=== PATIENT | male | born 1965 | race Caucasian/White ===

== ENCOUNTER → 2018-04-12 15:57 | Outpatient (CLI) | payer OTHER, SELFPAY ==
--- NOTE | 2018-04-12 16:07 | MRI_ITS ---
STUDY: MRI BRAIN WITH AND WITHOUT CONTRAST REASON FOR EXAM: Male, 53 years old. Visual field defect in left eye TECHNIQUE: Standardized multiplanar fat and water weighted pulse sequences were obtained. 10 ml of Gadavist contrast material was administered intravenously for the contrast portion of the examination. COMPARISON: None. FINDINGS: Normal size of the ventricles and extra-axial spaces for the patient's age. Normal white matter tracts of the supratentorial brain. Normal bilateral basal ganglia. Normal thalami. There is no extra-axial fluid accumulation. Normal flow voids within the major intracranial circulation suggesting patency by spin echo criteria. Normal venous enhancement. There is no enhancing intra-axial or extra-axial abnormality. Partial empty sella deformity of uncertain significance. Normal, infundibular stalk, optic chiasm and hypothalamus. Normal tectal plate and pineal gland. Normal midbrain, alda and medulla. Normal cerebellum. Normal basal cisterns. Normal bilateral temporal bones. Normal bilateral internal auditory canals. No demonstrated orbital abnormality, within the constraints of a routine brain study. Mild mucosal thickening of the maxillary sinuses bilaterally.. Normal calvarium and skull base. Normal visualized soft tissue structures. Normal visualized upper cervical spine. MRI/Brain W/WO Contrast IMPRESSION: Partial empty sella deformity of uncertain significance otherwise normal unenhanced and enhanced MRI of the brain. Mild bilateral maxillary sinus disease. Electronically Signed: Michael Rodriguez MD at 18:36 EDT , Service support ,
== END ==
PROVIDERS: Family Provider Internal Medicine; PCP Internal Medicine; Visit Provider Ophthalmology
DX: H53.412 Scotoma involving central area, left eye (principal)
CPT/HCPCS: 70553; A9585

== ENCOUNTER → 2024-04-23 | Outpatient (CLI) | payer OTHER, SELFPAY ==
[2024-04-23 15:22] LABS: CRP < 2.90 mg/L (0.0-3.0)
[2024-04-25 14:10] LABS: Endomysial Antibody IgA Negative (Negative); Immunoglobulin A 298 mg/dL (61-437); t-Transglutaminase IgA <2 U/mL (0-3)
== END | disposition home or self-care (01) ==
PROVIDERS: PCP Internal Medicine; Referring Provider Internal Medicine Gastroenterology; Visit Provider Internal Medicine Gastroenterology
DX: R10.9 Unspecified abdominal pain (principal); R19.7 Diarrhea, unspecified
CPT/HCPCS: 36415; 82784; 83516; 86140; 86255

== ENCOUNTER → 2025-08-20 | Outpatient (CLI) | payer OTHER, SELFPAY ==
--- OUTSIDE RECORDS SUMMARY | 2025-08-20 11:05 | XMS RPT_ITS | CCD ---
Author Organization [facility] Care Team Providers Care Novelty Worker Name Role Phone Raffaele AGUILAR, Archie Martinez Primary Care Provider [phone] Archie Castorena Primary Care Unavailable Ritchie Stevenson Referring Unavailable Ritchie Stevenson Attending Unavailable Raffaele AGUILAR, Archie Martinez Primary Care Provider [phone] Katarzyna 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.JONO [place] M Unavailable QUEENIE JACOBO Attending Unavailable KAYODE MORSE Referring Unavailable RAFFAELE, ARCHIE Martinez Primary Care Unavailable KAYODE MORSE Attending Unavailable QUEENIE JACOBO Referring Unavailable RAFFAELE, ARCHIE Martinez Primary Care Unavailable QUEENIE JACOBO Attending Unavailable ARCHIE CASTORENA Referring Unavailable RAFFAELE, ARCHIE Martinez Primary Care Unavailable ARCHIE CASTORENA Attending Unavailable RAFFAELE, ARCHIE Martinez Primary Care Unavailable RAFFAELE, ARCHIE Martinez Referring Unavailable RAFFAELE, ARCHIE Martinez Primary Care Unavailable RAFFAELE, ARCHIE Martinez Referring Unavailable RAFAFELE, ARCHIE Martinez Primary Care Unavailable RAFFAELE, ARCHIE Martinez Referring Unavailable RAFFAELE, ARCHIE Martinez Primary Care Unavailable ARCHIE CASTORENA Attending Unavailable ARCHIE CASTORENA Primary Care Unavailable RYAN ROSA Referring Unavailable RAFFAELE, ARCHIE Martinez Primary Care Unavailable TESTRYAN CHAKRABORTY Attending Unavailable RAFFAELE, ARCHIE Martinez Referring Unavailable RAFFAELE, ARCHIE Martinez Primary Care Unavailable ARCHIE CASTORENA Attending Unavailable RAFFAELE, ARCHIE Martinez Primary Care Unavailable RAFFAELE, ARCHIE Martinez Attending Unavailable RAFFAELE, ARCHIE Martinez Primary Care Unavailable RAFFAELE, ARCHIE Martinez Referring Unavailable RAFFAELE, ARCHIE Martinez Primary Care Unavailable Medications Current Medications Medication Drug Class(es) Dates Sig (Normalized) Sig (Original) atorvastatin 10 mg oral tablet (20 sources) HMG-CoA Reductase Inhibitor Start: 11-07-2023 End: 12-15-2024 take 1 tablet by mouth once daily at bedtime for hyperlipidemia atorvastatin (LIPITOR) 10 mg tablet Indications: Other hyperlipidemia Take 1 tablet by mouth daily at bedtime. For cholesterol. 90 tablet 3 12/15/2024 Active Start: 10-04-2022 take 1 tablet by derek th once daily at bedtime for hyperlipidemia atorvastatin (LIPITOR) 10 mg tablet Take 1 tablet by mouth daily at bedtime. For cholesterol. 90 tablet 3 10/04/2022 Active Start: 06-23-2021 End: 10-02-2022 take 1 tablet by mouth once daily at bedtime for hyperlipidemia atorvastatin (LIPITOR) 10 mg tablet Take 1 tablet by mouth daily at bedtime. For cholesterol. 90 tablet 3 06/23/2021 10/02/2022 Discontinued Comment on above: Take 1 tablet by derek th daily at bedtime. For cholesterol. bimatoprost 0.3 mg/ml ophthalmic solution (13 sources) Prostaglandin Analog Start: 4 take 1 drop(s) into the eye(s) once daily at bedtime bimatoprost (LUMIGAN) 0.03 % ophthalmic drops Use 1 Drop in both eyes daily at bedtime. 05/16/2024 Active dorzolamide 20 mg/ml ophthalmic solution (20 sources) Carbonic Anhydrase Inhibitor Start: 0 take 1 drop(s) into the eye(s) twice daily dorzolamide (TRUSOPT) 2 % ophthalmic solution Use 1 Drop in both eyes twice daily. 06/14/2020 Active Start: 06-14-2020 take 1 drop(s) into the eye(s) twice daily dorzolamide (TRUSOPT) 2 % ophthalmic solution Use 1 Drop in both eyes twice daily. 0 06/14/2020 Active Comment on above: Use 1 Drop in both e yes twice daily. enteric contrast (will be provided with radiology test) (1 source) Start: 12-16-19 End: 12-17-19 enteric contrast (will be provided with radiology test) Indications: Right lower quadrant abdominal pain For CT ABD/PEL W IVCON Routine order Administer, As Directed One Time Only, via Oral, Rectal, both Oral and Rectal, Enteric Tube, Stoma or Indwelling Catheter, Enteric Contrast as designated per enteric contrast guidelines 1 Each 12/15/2024 12/16/2024 Active iv contrast (will be provided with radiology test) (1 source) Start: 12-16-19 End: 12-17-19 iv contrast (will be provided with radiology test) Indications: Right lower quadrant abdominal pain CT ABD/PEL -Inject, intravenously, once for 1 dose.No IV access, insert saline lock prior to the beginning of sedation, infusion, injection of imaging exam. Discontinue saline lock post exam. If Pt. has a central line or IVAD, may access for administration according to line specific nursing protocol. Once exam is complete flush line and de-access according to line specific nursing protocol in the CT contrast administration guidelines link. 1 Each 12/15/2024 12/16/2024 Active latanoprost 0.05 mg/ml ophthalmic solution (17 sources) Prostaglandin Analog Start: 02-14-20 17 take 1 drop(s) into the eye(s) once daily at bedtime latanoprost (XALATAN) 0.005 % ophthalmic solution Use 1 Drop in both eyes daily at bedtime. TO AFFECTED EYE(S) 0 02/13/2017 Active Start: 02-13-2017 take 1 drop(s) into the eye(s) once daily at bedtime latanoprost (XALATAN) 0.005 % ophthalmic solution Use 1 Drop in both eyes daily at bedtime. TO AFFECTED EYE(S) 0 02/13/2017 Active Comment on above: Use 1 Drop in both e yes daily at bedtime. TO AFFECTED EYE(S) omeprazole 20 mg delayed release oral capsule (1 source) Proton Pump Inhibitor Start: 02-20-20 25 take 1 capsule by mouth once daily omeprazole (PRILOSEC) 20 mg capsule Take 1 capsule by mouth once daily. 90 capsule 1 02/19/2025 Active sertraline 100 mg oral tablet (20 sources) Serotonin Reuptake Inhibitor Start: 07-20-20 ZOLOFT 100 MG TAB Take one(1) tablet daily. 0 07/20/2005 Active Comment on above: Take one(1) tablet d aily. terbinafine 250 mg oral tablet (11 sources) Allylamine Antifungal Start: 11-08-19 25 take 1 tablet by mouth once daily terbinafine HCl (LAMISIL) 250 mg tablet Indications: Dermatophytosis of nail Take 1 tablet by mouth once daily. 30 tablet 2 11/08/2024 Active Completed/Discontinued Medications Medication Drug Class(es) Dates Sig (Normalized) Sig (Original) Benzocaine (1 source) Standardized Chemical Allergen Start: 02-12-2025 End: 02-12-2025 1 spray, TOPICAL, DIRECTED, Starting on Alannah 02/12/25 at 1030, Until Alannah 02/12/25 at 1429, Dosing as directed for intraprocedural use only - Pharmaceutical Waste: Aerosol -, Intraprocedure calcium chloride 0.0014 meq/ml / potassium chloride 0.004 meq/ml / sodium chloride 0.103 meq/ml / sodium lactate 0.028 meq/ml injectable solution (1 source) Start: 02-12-2025 End: 02-12-2025 take 30 mL intravenously every hour 30 mL/hr, INTRAVENOUS, CONTINUOUS, Starting on Alannah 02/12/25 at 1000, Until [place] 02/12/25 at 1046, Preprocedure diphenhydrAMINE (1 source) Histamine-1 Receptor Antagonist Start: 02-12-2025 End: 02-12-2025 12.5-50 mg, INTRAVENOUS, DIRECTED, Starting on [place]annah 02/12/25 at 1030, Until [place] 02/12/25 at 1429, DOSING DIRECTED BY PHYSICIAN FOR PROCEDURAL SEDATION ONLY, Intraprocedure 1 ml fentaNYL 0.05 mg/ml injection (1 source) Opioid Agonist Start: 02-12-2025 End: 02-12-2025 25-100 mcg, INTRAVENOUS, DIRECTED, Starting on [place] 02/12/25 at 1030, Until [place] 02/12/25 at 1429, DOSING DIRECTED BY PHYSICIAN FOR PROCEDURAL SEDATION ONLY, Intraprocedure 5 ml midazolam 1 mg/ml injection (1 source) Benzodiazepine Start: 02-12-2025 End: 02-12-2025 1-5 mg, INTRAVENOUS, DIRECTED, Starting on [place] 02/12/25 at 1030, Until [place] 02/12/25 at 1429, DOSING DIRECTED BY PHYSICIAN FOR PROCEDURAL SEDATION ONLY, Intraprocedure Problems Active Problems Problem Classification Problem Date Documented Da te Episodic/Chronic Anxiety disorders (20 sources) Panic disorder with agoraphobia; Translations: [Agoraphobia with panic disorder] Onset: 07-21-2005 07-21-2005 Chronic Disorders of lipid metabolism (20 sources) Hyperlipidemia; Translations: [Other hyperlipidemia] Onset: 07-21-2005 Chronic Esophageal disorders (1 source) Esophageal disorders; Translations: [Gastroesophageal reflux disease with esophagitis without hemorrhage] Onset: 02-19-2025 Essential hypertension (1 source) Essential hypertension; Translations: [Essential (primary) hypertension] 08-07-2024 Chronic Genitourinary symptoms and ill-defined conditions (4 sources) Blood in urine; Translations: [Hematuria, unspecified] Episodic Glaucoma (20 sources) Bilateral angle-closure glaucoma; Translations: [Chronic angle-closure glaucoma, bilateral, stage unspecified] Onset: 02-13-2017 02-13-2017 Chronic Hyperplasia of prostate (16 sources) Benign prostatic hyperplasia; Translations: [Benign prostatic hyperplasia without lower urinary tract symptoms] Onset: 02-26-2024 02-26-2024 Chronic Other and unspecified benign neoplasm (1 source) Adenomatous polyp of colon ; Translations: [Benign neoplasm of colon, unspecified] 11-15-2023 Episodic Other gastrointestinal disorders (15 sources) Irritable bowel syndrome with diarrhea; Translations: [Irritable bowel syndrome with diarrhea] Onset: 02-26-2024 08-07-2024 Chronic Other gastrointestinal disorders (1 source) Irritable bowel syndrome with diarrhea; Translations: [Irritable bowel syndrome with diarrhea] Onset: 08-07-2024 Chronic Other gastrointestinal disorders (1 source) Diarrhea; Translations: [Diarrhea, unspecified] 02-26-2024 Episodic Other gastrointestinal disorders (10 sources) Heartburn; Translations: [Heartburn] Onset: 02-12-2025 02-03-2025 Episodic Other nervous system disorders (20 sources) Neuropathy; Translations: [Polyneuropathy, unspecified] Onset: 06-23-2020 06-23-2020 Chronic Screening and history of mental health and substance abuse codes (2 sources) Patient encounter status; Translations: [Encounter for screening for depression] Onset: 08-04-2025 08-07-2024 Episodic Past or Other Problems Problem Classification Problem Date Documented Da te Episodic/Chronic Abdominal hernia (15 sources) Right inguinal hernia ; Translations: [Unilateral inguinal hernia, without obstruction or gangrene, not specified as recurrent] Onset: 2 Resolved: 7 02-13-2017 Episodic Abdominal pain (18 sources) Right flank pain; Translations: [Unspecified abdominal pain] Onset: 4 Episodic Diabetes mellitus without complication (20 sources) Impaired fasting glycemia; Translations: [Impaired fasting glucose] Onset: 4 Episodic Esophageal disorders (20 sources) Gastroesophageal reflux disease; Translations: [Gastro-esophageal reflux disease without esophagitis] Onset: 5 Resolved: 2 08-10-2006 Chronic Mycoses (4 sources) Onychomycosis due to dermatophyte ; Translations: [Tinea unguium] Onset: 5 08-07-2024 Episodic Nausea and vomiting (10 sources) Nausea; Translations: [Nausea] Onset: 5 02-03-2025 Episodic Other and unspecified benign neoplasm (20 sources) Polyp of colon; Translations: [Polyp of colon] Onset: 4 Resolved: 4 11-10-2014 Episodic Other gastrointestinal disorders (2 sources) Heartburn; Translations: [Heartburn] Onset: 5 Episodic Other screening for suspected conditions (not mental disorders or infectious disease) (20 sources) Raised prostate specific antigen; Translations: [Elevated prostate specific antigen [PSA]] Onset: 9 Episodic Varicose veins of lower extremity (20 sources) Varicose veins of lower extremity; Translations: [Varicose veins of bilateral lower extremities with pain] Onset: 0 06-23-2020 Episodic Results Test Name Value Interpretation Reference Range Facility [facility] 08-04-2025 CNOV Office Visit (INTMWS ) EKTA MYRICK ([id number]) 1965 M Date Time Provider Department 08/04/25 9:20 AM ARCHIE CASTORENA INTMWS During your visit today, we recorded the following information about you: Pulse Blood pressure Weight Height 60/minute 132/80 97.7 kg 1.848 m Archie Castorena MD 08/04/2025 11:12 AM Signed Subjective Ekta Myrick is a 60 year old male. Patient presents with: Physical F/U 6 months He was doing well. GI symptoms essentially resolved and were controlled. Lipids were controlled. His medication list was updated. He reported an incident at work when he became acutely weak, sweaty and lightheaded. He had no chest pains, palpitations, or dyspnea. He continued working and symptoms resolved shortly. He had varicose veins and swelling of the left leg controlled with compression stockings. He had been noting mild burning and pain of the left plantar feet after prolonged standing, and non specific numbness of the left lower leg and foot. Review of Systems Constitutional: Negative for appetite change, fatigue and fever. HENT: Negative for congestion and sore throat. Eyes: Negative for visual disturbance. Respiratory: Negative for cough and shortness of breath. Cardiovascular: Positive for leg swelling (left leg). Negative for chest pain and palpitations. Gastrointestinal: Negative for abdominal pain, constipation, diarrhea, nausea and vomiting. Genitourinary: Negative for difficulty urinating and dysuria. Musculoskeletal: Negative for arthralgias and back pain. Neurological: Positive for numbness (left foot). Negative for headaches. PAST MEDICAL HISTORY Diagnosis Date Agoraphobia with panic disorder 07/21/2005 Dr. Kc Anxiety disorder in conditions classified elsewhere Cholelithiasis 11/03/2023 Chronic angle-closure glaucoma of both eyes 02/13/2017 Colon polyp 12/04/2013 Esophageal reflux GERD (gastroesophageal reflux disease) 02/08/2011 Glaucoma Heart burn 02/12/2025 Hyperlipidemia 07/21/2005 Impaired fasting glucose 11/05/2013 Irritable bowel syndrome with diarrhea 02/26/2024 Neuropathy - (NOS) 06/23/2020 Varicose veins of left lower extremity with pain 06/23/2020 PAST SURGICAL HISTORY Procedure Laterality Date APPENDECTOMY 1979 CATARACT EXTRACTION W/ INTRAOCULAR LENS IMPLANT HX Bilateral 11/2018 w/ glaucoma procedure. COLONOSCOPY FLX DX W/COLLJ SPEC WHEN PFRMD 12/04/2013 Colonoscopy COLONOSCOPY SCREENING 11/15/2023 EGD 02/12/2025 EXPLORATORY LAPAROTOMY CELIOTOMY W/WO BIOPSY SPX 1979 Laparotomy, exp ;Adhesions FAMILY HISTORY Problem Relation Age of Onset Breast Cancer Mother Alzheimer's Disease Mother Hypertension Mother Hypertension Father Diabetes Father Blood Disease Father recurrent DVT on chronic warfarin Arthritis Brother knee replaced No Known Problems Sister Colon Cancer Maternal Grandfather No Known Problems Brother ALLERGIES No Known Allergies Current Outpatient Medications Medication Sig atorvastatin (LIPITOR) 10 mg tablet Take 1 tablet by mouth daily at bedtime. For cholesterol. bimatoprost (LUMIGAN) 0.03 % ophthalmic drops Use 1 Drop in both eyes daily at bedtime. dorzolamide (TRUSOPT) 2 % ophthalmic solution Use 1 Drop in both eyes twice daily. omeprazole (PRILOSEC) 20 mg capsule Take 1 capsule by mouth once daily. sertraline (ZOLOFT) 100 mg tablet Take 2 tablets by mouth once daily. No current facility-administered medications for this visit. Objective BP 132/80 (BP Site: Left Arm, BP Position: Sitting, BP Cuff Size: Large Adult) Pulse 60 Ht 184.8 cm (6' 0.75) Wt 97.7 kg (215 lb 6.2 oz) BMI 28.61 kg/m? Physical Exam Constitutional: General: He is not in acute distress. Appearance: He is not ill-appearing. HENT: Head: Normocephalic. Nose: No congestion or rhinorrhea. Mouth/Throat: Mouth: Mucous membranes are moist. Pharynx: Oropharynx is clear. Eyes: Extraocular Movements: Extraocular movements intact. Conjunctiva/sclera: Conjunctivae normal. Cardiovascular: Rate and Rhythm: Normal rate and regular rhythm. Heart sounds: No murmur heard. No gallop. Pulmonary: Breath sounds: Normal breath sounds. Abdominal: Palpations: Abdomen is soft. Tenderness: There is no abdominal tenderness. Musculoskeletal: General: No swelling. Cervical back: Neck supple. Right lower leg: No edema. Left lower leg: No edema. Lymphadenopathy: Cervical: No cervical adenopathy. Skin: Comments: Varicose veins medium size, left lower leg. No tenderness. No cords. Neurological: General: No focal deficit present. Mental Status: He is alert. Sensory: Sensory deficit (subjective decrease of PP and FT left foot and distal leg.) present. Motor: No weakness. Gait: Gait normal. Psychiatric: Mood and Affect: Mood normal. Latest Ref Rng 08/01/2025 Protein, (more content not included)... Normal [facility] [id number] 08-04-2025 ECG01 Ventricular Rate : 4 7 BPM Atrial Rate : 47 BPM P-R Interval : 170 ms QRS Duration : 100 ms Q-T Interval : 468 ms QTC Calculation(Bazett) : 414 ms Calculated P [place] : 29 degrees Calculated R [place] : 15 degrees Calculated T [place] : 26 degrees SINUS BRADYCARDIA NONSPECIFIC ST AND T WAVE ABNORMALITY BORDERLINE ECG Confirmed by ANJEL MASTERS MD ([id number]) on 08/05/2025 10:53:24 AM NAME : EKTA MYRICK PID : [id number] : 1965 Gender : Male Race : ORD : Procedure Date : Aug 04 2025 10:46:44 Edit Date : Aug 05 2025 10:53:44 Diagnosis: SINUS BRADYCARDIA NONSPECIFIC ST AND T WAVE ABNORMALITY BORDERLINE ECG Confirmed by ANJEL MASTERS MD ([id number]) on 08/05/2025 10:53:24 AM Test Reason : Location : 185 : [facility] Overread By : ANJEL MASTERS MD Edited By : ANJEL MASTERS MD Referred By : Archie Castorena Acquired by : Adrianne Barragan [facility] Comprehensive metabolic 2000 panelon 08-01-2025 Albumin [Mass/Vol] 4.4 g/dL Normal 3.9-4.9 [facility] Comment on above: Order Comment: Speci men Type: BLOOD SPECIMENOrdering Facility: [facility] Address: [address] [place] [address] Performed By: #### 2 4323-8, PAIGE 22627-4 ####[facility] [id number] [place] [address] [place] ALP [Catalytic activity/Vol] 54 U/L Normal 38-113 [facility] Comment on above: Order Comment: Speci men Type: BLOOD SPECIMENOrdering Facility: [facility] Address: [address] [place] [address] Performed By: #### 2 4323-8, PAIGE, 29003-3 ####[facility] [id number] [place] [address] [place] ALT [Catalytic activity/Vol] 17 U/L Normal 10-54 [facility] Comment on above: Order Comment: Speci men Type: BLOOD SPECIMENOrdering Facility: [facility] Address: [address] [place] [address] Performed By: #### 2 4323-8, EXEPSAlfred, 44023-4 ####[facility] [id number] [place] [address] [place] Anion gap [Moles/Vol] 10 mmol/L Normal 8-15 [facility] Comment on above: Order Comment: Speci men Type: BLOOD SPECIMENOrdering Facility: [facility] Address: [address] [place] [address] Performed By: #### 2 4323-8, EXEPSAlfred, 72329-5 ####[facility] [id number] [place] [address] [place] AST [Catalytic activity/Vol] 21 U/L Normal 14-40 [facility] Comment on above: Order Comment: Speci men Type: BLOOD SPECIMENOrdering Facility: [facility] Address: [address] [place] [address] Performed By: #### 2 4323-8, EXEPSAlfred, 09850-8 ####[facility] [id number] [place] [address] [place] Bilirubin [Mass/Vol] 1.6 mg/dL High 0.2-1.3 [facility] Comment on above: Order Comment: Speci men Type: BLOOD SPECIMENOrdering Facility: [facility] Address: [address] [place] [address] Performed By: #### 2 4323-8, EXEPSA, 40454-8 ####[facility] [id number] [place] [address] [place] Calcium [Mass/Vol] 9.1 mg/dL Normal 8.5-10.2 [facility] Comment on above: Order Comment: Speci men Type: BLOOD SPECIMENOrdering Facility: [facility] Address: [address] [place] [address] Performed By: #### 2 4323-8, EXEPSA, 40206-1 ####[facility] [id number] [place] [address] [place] Chloride [Moles/Vol] 104 mmol/L Normal 98-107 [facility] Comment on above: Order Comment: Speci men Type: BLOOD SPECIMENOrdering Facility: [facility] Address: [address] [place] [address] Performed By: #### 2 4323-8, EXEPSAlfred, 35764-1 ####[facility] [id number] [place] [address] [place] CO2 [Moles/Vol] 25 mmol/L Normal 22-30 [facility] Comment on above: Order Comment: Speci men Type: BLOOD SPECIMENOrdering Facility: [facility] Address: [address] [place] [address] Performed By: #### 2 4323-8, PAIGE, 11287-0 ####[facility] [id number] [place] [address] [place] Creatinine [Mass/Vol] 0.95 mg/dL Normal 0.73-1.22 [facility] Comment on above: Order Comment: Speci men Type: BLOOD SPECIMENOrdering Facility: [facility] Address: [address] [place] [address] Performed By: #### 2 4323-8, PAIGE, 82852-1 ####[facility] [id number] [place] [address] [place] eGFRcr SerPlBld CKD-EPI 2020 90 mL/min/1.73m??? Normal >=60 [facility] Comment on above: Order Comment: Speci men Type: BLOOD SPECIMENOrdering Facility: [facility] Address: [address] [place] [address] Result Comment: Caprice mated Glomerular Filtration Rate (eGFR) is calculated using the 2020 CKD-EPI creatinine equation. This equation utilizes serum creatinine, sex, and age as parameters. The creatinine assay has traceable calibration to isotope dilution-mass spectrometry. Refer to KDIGO guidelines for clinical interpretation. In patients with unstable renal function, e.g. those with acute kidney injury, the eGFR may not accurately reflect actual GFR. Performed By: #### 2 4323-8, PAIGE, 22982-3 ####[facility] [id number] [place] [address] [place] Glucose [Mass/Vol] 113 mg/dL High 74-99 [facility] Comment on above: Order Comment: Speci men Type: BLOOD SPECIMENOrdering Facility: [facility] Address: [address] [place] [address] Result Comment: The [place] [employer] (ADA) provides guidance for cutoff values for fasting glucose and random glucose. The ADA defines fasting as no caloric intake for at least 8 hours. Fasting plasma glucose results between 100 to 125 mg/dL indicate increased risk for diabetes (prediabetes). Fasting plasma glucose results greater than or equal to 126 mg/dL meet the criteria for diagnosis of diabetes. In the absence of unequivocal hyperglycemia, results should be confirmed by repeat testing. In a patient with classic symptoms of hyperglycemia or hyperglycemic crisis, random plasma glucose results greater than or equal to 200 mg/dL meet the criteria for diagnosis of diabetes. Reference: Standards of Medical Care in Diabetes 2016, [place] [employer]. Diabetes Care. 2016.39(Suppl 1). Performed By: #### 2 4323-8, PAIGE 81974-1 ####[facility] [id number] [place] [id number] [place] Potassium [Moles/Vol] 4.4 mmol/L Normal 3.7-5.1 [facility] Comment on above: Order Comment: Reba men Type: BLOOD SPECIMENOrdering Facility: [facility] Address: [address] [place] [address] Performed By: #### 2 4323-8, PAIGE, 91842-0 ####[facility] [id number] [place] [address] [place] Protein [Mass/Vol] 7.1 g/dL Normal 6.3-8.0 [facility] Comment on above: Order Comment: Speci men Type: BLOOD SPECIMENOrdering Facility: [facility] Address: [address] [place] [address] Performed By: #### 2 4323-8, PAIGE, 70437-3 ####[facility] [id number] [place] [address] [place] Sodium [Moles/Vol] 139 mmol/L Normal 136-144 [facility] Comment on above: Order Comment: Speci men Type: BLOOD SPECIMENOrdering Facility: [facility] Address: [address] [place] [address] Performed By: #### 2 4323-8, PAIGE, 45244-6 ####[facility] [id number] [place] [address] [place] Urea nitrogen [Mass/Vol] 18 mg/dL Normal 9-24 [facility] Comment on above: Order Comment: Speci men Type: BLOOD SPECIMENOrdering Facility: [facility] Address: [address] [place] [address] Performed By: #### 2 4323-8, PAIGE, 30943-7 ####[facility] LABCLIA [id number] [place] [address] [place] EXECUTIVE PANEL PSA, FREE AN D TOTALon 08-01-2025 Free PSA/Total PSA [Mass fraction] 21 % Normal [facility] Comment on above: Order Comment: Speci men Type: BLOOD SPECIMENOrdering Facility: [facility] Address: [address] [place] [address] Result Comment: Tota l and free PSA test methodology used is the Electrochemiluminescence Immunoassay by [employer]. Total or free PSA values by differing methodologies cannot be interchanged. The below table lists the probability of finding prostate cancer upon needle biopsy, for men 50 years or older and total PSA concentrations from 4.0-10.0 ng/mL. Results should be interpreted within the broader clinical context. Free PSA(%) 50-59 years 60-69 years >69 years <11 49.2% 57.5% 64.5% 11-18 26.9% 33.9% 40.8% 19-25 18.3% 23.9% 29.7% >25 9.1% 12.2% 15.8% Performed By: #### 2 4323-8, PAIGE 03337-9 ####[facility] LABIA [id number] [place] [id number] [place] Prostate specific Ag [Mass/Vol] 4.62 ng/mL High <2.60 [facility] Comment on above: Order Comment: Speci men Type: BLOOD SPECIMENOrdering Facility: [facility] Address: [address] [place] [address] Result Comment: Tota l PSA test methodology used is the Electrochemiluminescence Immunoassay by [facility]. Total PSA values by differing methodologies cannot be interchanged. For an individual patient, the significance of a PSA level should be interpreted in a broad clinical context, including age, race, family history, digital rectal exam, prostate size, results of prior testing (prostate biopsy, free PSA, PCA3), and use of 5-alpha reductase inhibitors. Considering the high incidence of asymptomatic cancer in the general population that may not pose an ultimate risk to a patient, the decision to recommend urological evaluation or prostate biopsy should be individualized after consideration of all these factors. REFERENCE: Sis Bojorquez M.D., M.P.H., El Cohn M.D., Ph.D., Jose Fuentes M.D., Ping Levine, M.P.H., Yani Russ, Alexander. Effect of Verification Bias on Screening for Prostate Cancer by Measurement of Prostatic Specific Antigen. N Engl J Med 2003,349:335-42. Performed By: #### 2 4323-8, PAIGE, 62317-4 ####[facility] LABCLIA [id number] [place] [id number] [place] HbA1c (Bld)on 08-01-2025 Average glucose Estimated from glycated hemoglobin (Bld) [Mass/Vol] 114 mg/dL Normal [facility] Comment on above: Order Comment: Speci men Type: BLOOD SPECIMENOrdering Facility: [facility] Address: [address] [place] [address] Result Comment: eAG: (Estimated average glucose) is a calculated value from HgbA1c and is airport representative of the average blood glucose level in the last 2-3 month period. Performed By: #### 5 5454-3 ####[facility] LABCLIA [id number] [place] [address] [place] HbA1c (Bld) [Mass fraction] 5.6 % Normal 4.3-5.6 [facility] Comment on above: Order Comment: Hiraltameka [facility] Type: BLOOD SPECIMENOrdering Facility: [facility] Address: [address] [place] [address] Result Comment: Amer ican Diabetes Association guidelines indicate that patients with HgbA1c in the range 5.7-6.4% are at increased risk for development of diabetes, and intervention by lifestyle modification may be beneficial. HgbA1c greater or equal to 6.5% is considered diagnostic of diabetes. Performed By: #### 5 5454-3 ####[facility] LABCLIA [id number] [place] [address] [place] Lipid 1996 panelon 5 Cholesterol [Mass/Vol] 165 mg/dL Normal <200 [facility] Comment on above: Order Comment: Hiraltameka dean Type: BLOOD SPECIMENOrdering Facility: [facility] Address: [address] [place] [address] Result Comment: <200 mg/dL, Desirable 200-239 mg/dL, Borderline high >239 mg/dL, High Performed By: #### 2 4323-8, EXEPSA, 78906-0 ####[facility] LABCLIA [id number] [place] [address] [place] Cholesterol in HDL [Mass/Vol] 55 mg/dL Normal >39 [facility] Comment on above: Order Comment: Reba dean Type: BLOOD SPECIMENOrdering Facility: [facility] Address: [address] [place] [address] Result Comment: 40-5 9 mg/dL, Acceptable >59 mg/dL, High: Negative risk factor for coronary heart disease <40 mg/dL, Low: Positive risk factor for coronary heart disease Performed By: #### 2 4323-8, PAIGE ####[facility] LABCLIA [id number] [address] [place] Cholesterol in LDL [Mass/Vol] 89 mg/dL Normal <100 [facility] Comment on above: Order Comment: Speci men Type: BLOOD SPECIMENOrdering Facility: [facility] Address: [address] [place] [address] Result Comment: <100 mg/dL, Optimal 100-129 mg/dL, Near optimal/above optimal 130-159 mg/dL, Borderline high 160-189 mg/dL, High >189 mg/dL, Very high Secondary prevention optimal LDL Cholesterol levels are recommended to be <70 mg/dL LDL cholesterol is calculated using the Pisano-NIH equation. Performed By: #### 2 4323-8, PAIGE ####[facility] LABCLIA [id number] [address] STATES [facility] Cholesterol in LDL/Cholesterol in HDL [Mass ratio] 1.62 {ratio} Normal <2.54 [facility] Comment on above: Order Comment: Hirali men Type: BLOOD SPECIMENOrdering Facility: [facility] Address: [address] [place] [address] Result Comment: Refe rence: 1. National Cholesterol Education Program ATP III Guideline At-A-Glance Quick Desk Reference: National Heart, Lung, and Blood Waterflow. National Institutes of Health. 2001: NIH Publication No. 01-3305. 2. An International Atherosclerosis Society position paper: global recommendations for the management of dyslipidemia: executive summary, Atherosclerosis. 2014: 232(2):410-413. Performed By: #### 2 4323-8, PAIGE, ####[facility] LABCLIA [id number] [address] [place] Cholesterol in VLDL [Mass/Vol] 19 mg/dL Normal <30 [facility] Comment on above: Order Comment: Speci men Type: BLOOD SPECIMENOrdering Facility: [facility] Address: [address] [place] [address] Performed By: #### 2 4323-8, PAIGE, 40476-9 ####[facility] LABCLIA [id number] [place] [address] [place] Cholesterol non HDL [Mass/Vol] 110 mg/dL Normal <130 [facility] Comment on above: Order Comment: Speci men Type: BLOOD SPECIMENOrdering Facility: [facility] Address: [address] [place] [address] Result Comment: <130 mg/dL, Optimal 130-159 mg/dL, Near optimal/above optimal 160-189 mg/dL, Borderline high 190-219 mg/dL, High >219 mg/dL, Very high Secondary prevention optimal non HDL Cholesterol levels are recommended to be <100 mg/dL Performed By: #### 2 432-8, PAIGE 56869-2 ####[facility] LABCLIA [id number] [place] [address] [place] Cholesterol.total/ Cholesterol in HDL [Mass ratio] 3.00 {ratio} Normal <5.10 [facility] Comment on above: Order Comment: Speci men Type: BLOOD SPECIMENOrdering Facility: [facility] Address: [address] [place] [address] Performed By: #### 2 4323-8, PAIGE, 48414-8 ####[facility] LABCLIA [id number] [place] [address] [place] FASTING TIME 12 hrs Normal [facility] Comment on above: Order Comment: Speci men Type: BLOOD SPECIMENOrdering Facility: [facility] Address: [address] [place] [address] Performed By: #### 2 4323-8, PAIGE, 95844-9 ####[facility] LABCLIA [id number] [place] [address] [place] Triglyceride [Mass/Vol] 119 mg/dL Normal <150 [facility] Comment on above: Order Comment: Speci men Type: BLOOD SPECIMENOrdering Facility: [facility] Address: [address] [place] [address] Result Comment: <150 mg/dL, Normal 150-199 mg/dL, Borderline high 200-499 mg/dL, High >499 mg/dL, Very high Performed By: #### 2 4323-8, EXEPSA, 04210-4 ####[facility] LABCLIA [id number] [place] [id number] [facility] CNOVon 02-19-2025 CNOV Office Visit (GENSWS ) EKTA MYRICK ([id number]) 1965 Date Time Provider Department 02/19/25 3:30 PM QUEENIE JACOBO GENSWS During your visit today, we recorded the following information about you: Queenie Jacobo APRN.CLINICAL APPEALS AUDITOR 02/19/2025 3:39 PM Signed FOLLOW UP VISIT - ENDOSCOPY Ekta Myrick 1965 [id number] REFERRING PHYSICIAN: Kayode Morse III [address] [facility] [address] Ekta Myrick is a patient I am following for LUQ pain, nausea, heart burn. Dr. Morse performed upper endoscopy on 02/12/2025. The patient was found to have Impression: - Z-line regular, 41 cm from the incisors. Biopsied. - Gastritis, characterized by erythema. Biopsied. - Normal examined duodenum. Biopsied. Pathology demonstrated: FINAL DIAGNOSIS A. Duodenum, biopsy: - Duodenal mucosa with no diagnostic abnormality. B. Stomach, antrum, biopsy: - Gastric antral and oxyntic mucosa with no diagnostic abnormality. C. Esophagus, distal, biopsy: - Mildly active esophagitis, consistent with gastroesophageal reflux injury. D. Esophagus, mid, biopsy: - Squamous mucosa with no diagnostic abnormality The patient notes he is still getting some mild LUQ pain with certain foods -notes he drinks a lot of orange juice and has recently started mixing it 1/2 with water to help with the pain VITALS: There were no vitals taken for this visit. General: patient is alert, cooperative, pleasant and in no acute distress On examination, the abdomen is benign. Assessment ASSESSMENT/PLAN: 1. Gastroesophageal reflux disease with esophagitis without hemorrhage - ICD9: 530.81, 530.10, ICD10: K21.00 - Discussed lifestyle modifications including losing weight, limiting caffeine, no meals three hours before sleep, and head of bed elevation - Begin treatment with Prilosec 20 mg every day- let me know if there is no improvement in 1 month and can increase to 40mg The operative findings and pathology report were reviewed with the patient, and the patient has had the opportunity to ask questions and have questions answered. If the patient notes any problems or changes in bowel function, the patient should contact me immediately. Otherwise I recommend follow up endoscopy as symptoms dictate. HM updated. Discussed treatment plan and patient voices understanding. Patient's questions answered appropriately. Medications and potential side effects were discussed and patient voices understanding. Return to the office as scheduled or as needed for worsening/no improvement. Queenie Jacobo APRN.JONO Referring Provider: KAYODE MORSE [[id number]] Allergies As of Date: 02/19/2025 (No Known Allergies) Date Reviewed: 02/19/2025 Reviewed by: Queenie Jacobo APRN.CLINICAL APPEALS AUDITOR - Fully Assessed Reason for Visit: Follow Up [171] Cmt: Follow up for EGD. Denies complaints related to procedure Primary Visit Diagnosis:Gastroesophageal reflux disease with esophagitis without hemorrhage [K21.00] Order(s):omeprazole (PRILOSEC) 20 mg capsuleTake 1 capsule by mouth once daily.Disp: 90 capsuleRfl: 1 Prescriptions as of 02/19/2025 - omeprazole (PRILOSEC) 20 mg capsule Take 1 capsule by mouth once daily. - atorvastatin (LIPITOR) 10 mg tablet Take 1 tablet by mouth daily at bedtime. For cholesterol. - terbinafine HCl (LAMISIL) 250 mg tablet Take 1 tablet by mouth once daily. - bimatoprost (LUMIGAN) 0.03 % ophthalmic drops Use 1 Drop in both eyes daily at bedtime. - dorzolamide (TRUSOPT) 2 % ophthalmic solution Use 1 Drop in both eyes twice daily. - ZOLOFT 100 MG TAB Take one(1) tablet daily. Problem List As Of Date 02/19/2025 Noted Resolved AGORAPHOBIA WITH PANIC DISORDER [F40.01] 07/21/2005 ESOPHAGEAL REFLUX [K21.9] 07/21/2005 08/10/2006 Hyperlipidemia [E78.5] 07/21/2005 GERD (gastroesophageal reflux disease) [K21.9] 02/08/2011 07/19/2012 Right inguinal hernia [K40.90] 07/19/2012 02/13/2017 Impaired fasting glucose [R73.01] 11/05/2013 Colon polyp [K63.5] 12/04/2013 08/07/2024 Chronic angle-closure glaucoma of both eyes [H4*02/13/2017 Elevated PSA [R97.20] 03/02/2019 Varicose veins of both lower extremities with p*06/23/2020 Neuropathy - (NOS) [G62.9] 06/23/2020 BPH without obstruction/lower urinary tract sym*02/26/2024 Irritable bowel syndrome with diarrhea [K58.0] 02/26/2024 Heart burn [R12] 02/12/2025 LUQ abdominal pain [R10.12] 02/12/2025 Nausea [R11.0] 02/12/2025 Prescriptions ordered this encounter Disp Refills Start End OMEPRAZOLE 20 MG CAPSULE,DELAYED REL* 90 c* 1 02/19/2025 Route: ORAL Sig: Take 1 capsule by mouth once daily. Encounter Status:Closed by QUEENIE JACOBO on 02/19/25 [facility] [id number] 02-12-2025 [id number] HNO ID: [id number] Author: GALINA MARTIN RN Service: ? Author Type: Registered Nurse Type: [id number] Filed: 02/12/2025 10:54 Note Text: The patient received a copy of EGD discharge instructions that contain information for how to contact the physician who performed the procedure and when to seek medical care. [facility] EGD Study observation Narrat suhas 02-12-2025 [facility] Gastrointestinal Endoscopy Patient Name: Ekta Myrick Procedure Date: 02/12/2025 10:02 AM Date of : 1965 Admit Type: Outpatient Age: 60 Gender: Male Note Status: Finalized Procedure: Upper GI endoscopy Indications: Abdominal pain in the left upper quadrant, Heartburn, Nausea Providers: Kayode Morse MD Patient Profile: This is a 60 year old male. Refer to note in patient chart for documentation of history and physical. Referring Physician: Queenie Jacobo (Referring MD) Medicines: Fentanyl 100 micrograms IV, Midazolam 5 mg IV, Diphenhydramine 50 mg IV, Benzocaine spray Complications: No immediate complications. Estimated blood loss: Minimal. Requesting Provider: Procedure: Pre-Anesthesia Assessment: - Prior to the procedure, a History and Physical was performed, and patient medications and allergies were reviewed. The patient's tolerance of previous anesthesia was also reviewed. The risks and benefits of the procedure and the sedation options and risks were discussed with the patient. All questions were answered, and informed consent was obtained. Prior Anticoagulants: The patient has taken no anticoagulant or antiplatelet agents. ASA Grade Assessment: III - A patient with severe systemic disease. After reviewing the risks and benefits, the patient was deemed in satisfactory condition to undergo the procedure. After obtaining informed consent, the endoscope was passed under direct vision. Throughout the procedure, the patient's blood pressure, pulse, and oxygen saturations were monitored continuously. The Endoscope was introduced through the mouth, and advanced to the second part of duodenum. The upper GI endoscopy was accomplished without difficulty. The patient tolerated the procedure well. Moderate Sedation: The administration of moderate sedation was initiated at 10:14. Moderate (conscious) sedation was personally administered by the endoscopist. The following parameters were monitored: oxygen saturation, heart rate, blood pressure, respiratory rate, EKG, adequacy of pulmonary ventilation, and response to care. Total physician intraservice time was 10 minutes. Findings: The Z-line was regular and was found 41 cm from the incisors. Biopsies were taken with a cold forceps for histology. Localized mild inflammation characterized by erythema was found in the prepyloric region of the stomach. Biopsies were taken with a cold forceps for Helicobacter pylori testing. The examined duodenum was normal. Biopsies for histology were taken with a cold forceps for evaluation of celiac disease. Impression: - Z-line regular, 41 cm from the incisors. Biopsied. - Gastritis, characterized by erythema. Biopsied. - Normal examined duodenum. Biopsied. Recommendation: - Patient has a contact number available for emergencies. The signs and symptoms of potential delayed complications were discussed with the patient. Return to normal activities tomorrow. Written discharge instructions were provided to the patient. - Resume previous diet. - Continue present medications. - Await pathology results. - Await pathology results. - Repeat upper endoscopy PRN for surveillance. - Return to nurse practitioner at appointment to be scheduled. Procedure Code(s): --- Professional --- 73038, Esophagogastroduodenoscopy, flexible, transoral; with biopsy, single or multiple G0500, Moderate sedation services provided by the same physician or other qualified health child care attendant school performing a gastrointestinal endoscopic service that sedation supports, requiring the presence of an independent trained observer to assist in the monitoring of the (more content not included)... [facility] Radiology Study observation (narrative) [facility] HISTORY PHYSICALon HISTORY PHYSICAL HNO ID: [id number] Author: KAYODE MORSE MD Service: General Surgery Author Type: Physician Type: H&P Filed: 02/12/2025 10:03 Note Text: HISTORY AND PHYSICAL Ekta Myrick : 1965 REFERRING PHYSICIAN: Archie Castorena [address] [facility] [address] CHIEF COMPLAINT: Patient presents with: Consult: LUQ pain, EGD consult HPI: Ekta is a 60 year old male referred for endoscopy. Ekta notes LUQ pain x 6 mos. Ekta was evaluated by Dr. Stevenson who treated him for IBS with rifaximin but did not think he needed an EGD. Ekta notes abdominal pain. - LUQ pain x 6 mos- feels likes a pressure - notices a gurgling after eating when sitting upright in his recliner - does not radiate - notes nausea throughout the day AND in the morning - denies vomiting - denies unintentional weight loss Ekta notes heartburn. -spicy greasy foods -with gatorade Ekta denies dysphagia. Ekta denies a history of ulcers/ peptic ulcer disease. Ekta also notes that his LLQ looks like it sticks out further than the other side -does not cause pain -had right inguinal hernia repair years ago -believes he has a hernia there also Notes symptoms of IBS -treated by Dr. Stevenson in the past -normal colonoscopy 11/2023 CT ABD/PELV W/ IV 12/30/24 IMPRESSION: No acute findings or significant pathology. Status post appendectomy. Colonic diverticulosis; no acute pericolonic inflammatory changes. Prostatomegaly. Ekta has undergone prior endoscopy. NO EGD but colonoscopy in 2023 in [facility]. Sedation:Fentanyl 100 micrograms IV, Midazolam 5 mg IV, Diphenhydramine 50 mg IV CURRENT MEDICATIONS Current Outpatient Medications Medication Sig atorvastatin (LIPITOR) 10 mg tablet Take 1 tablet by mouth daily at bedtime. For cholesterol. terbinafine HCl (LAMISIL) 250 mg tablet Take 1 tablet by mouth once daily. bimatoprost (LUMIGAN) 0.03 % ophthalmic drops Use 1 Drop in both eyes daily at bedtime. dorzolamide (TRUSOPT) 2 % ophthalmic solution Use 1 Drop in both eyes twice daily. ZOLOFT 100 MG TAB Take one(1) tablet daily. No current facility-administered medications for this visit. ALLERGIES: Patient has no known allergies. PAST MEDICAL HISTORY PAST MEDICAL HISTORY Diagnosis Date Agoraphobia with panic disorder 07/21/2005 Dr. Kc Anxiety disorder in conditions classified elsewhere Cholelithiasis 11/03/2023 Chronic angle-closure glaucoma of both eyes 02/13/2017 Colon polyp 12/04/2013 Esophageal reflux GERD (gastroesophageal reflux disease) 02/08/2011 Glaucoma Hyperlipidemia 07/21/2005 Impaired fasting glucose 11/05/2013 Irritable bowel syndrome with diarrhea 02/26/2024 PAST SURGICAL HISTORY PAST SURGICAL HISTORY Procedure Laterality Date APPENDECTOMY 1979 CATARACT EXTRACTION W/ INTRAOCULAR LENS IMPLANT HX Bilateral 11/2018 w/ glaucoma procedure. COLONOSCOPY FLX DX W/COLLJ SPEC WHEN PFRMD 12/04/2013 Colonoscopy COLONOSCOPY SCREENING 11/15/2023 EXPLORATORY LAPAROTOMY CELIOTOMY W/WO BIOPSY SPX 1979 Laparotomy, exp ;Adhesions FAMILY HISTORY FAMILY HISTORY Problem Relation Age of Onset Breast Cancer Mother Alzheimer's Disease Mother Hypertension Mother Hypertension Father Diabetes Father Blood Disease Father recurrent DVT on chronic warfarin Arthritis Brother knee replaced No Known Problems Sister Colon Cancer Maternal Grandfather No Known Problems Brother SOCIAL HISTORY Social History Tobacco Use Smoking status: Never Smokeless tobacco: Never Vaping Use Vaping status: Never Used Substance Use Topics Alcohol use: No Drug use: No PHYSICAL EXAMINATION: General: The patient is 60 year old, male well nourished, well hydrated in no acute distress. The patient is oriented to time, place, and person. VITALS: Blood pressure 140/86, pulse 68, temperature 36.2 ?C (97.1 ?F), height 185.4 cm (6' 1), weight 95.3 kg (210 lb 3.2 oz), SpO2 97%. Body mass index is 27.73 kg/m?. HEENT: Normal cephalic, ataumatic, pupils are equally round, sclera are anicteric, mucous membranes are moist, oropharynx is clear. Neck has no masses, asymmetry or lymphadenopathy. Respiratory: Clear to auscultation and percussion. Normal respiratory excursion and pattern. Cardiac: Examination is regular rate and rhythm. Normal S1/S2 Abdominal exam: Soft, nontender, with no palpable masses. No hepatosplenomegaly. No palpable hernias. Extremities: no clubbing, cyanosis or edema. No adenopathy. LABORATORY VALUES: As Noted RADIOLOGIC STUDIES: As Noted Assessment IMPRESSION: LUQ pain, nausea, heart burn PLAN: I have reviewed my findings with the surgeon. Will plan for upper endoscopy. We discussed the risks and benefits of the planned endoscopy in terms understandable to the patient. I have informed the patient that complications can occur including failure to complete the endoscopy and perforation. Ekta had the opportunity to ask quest (more content not included)... Normal [facility] Pathology biopsy report Michel (Tiss)on 02-12-2025 AP DISCLAIMER Normal [facility] Comment on above: Order Comment: Speci men Type: TISSUE SPECIMENOrdering Facility: [facility] Address: [address] [place] [address] Result Comment: Josr branch Developed Test (LDT) Disclaimer: Performance characteristics of immunohistochemical, immunofluorescent, and chromogenic in-situ hybridization tests have been determined by the performing laboratory within [facility]'s Aníbal Sales Pathology and Laboratory Medicine Department ([facility], [facility], [facility], [facility], [facility], [facility], or [facility]) in a manner consistent with CLIA requirements. One or more of these tests may not have been cleared or approved by the FDA. [facility] is regulated under CLIA as qualified to perform high-complexity testing. These tests are used for clinical purposes. These should not be regarded as investigational or for research. Positive and negative controls stain appropriately. Performed By: #### 6 6121-5 ####[facility] LABCLIA [id number] [address] [place] CASE REPORT Normal [facility] Comment on above: Order Comment: Speci men Type: TISSUE SPECIMENOrdering Facility: [facility] Address: [address] [place] [address] Result Comment: Surg [facility] Pathology Report Case: [id number] Authorizing Provider: Kayode Morse MD Collected: 02/12/2025 10:23 AM Ordering Location: Ambulatory Surgery Received: 02/12/2025 12:18 PM Pathologist: Giovanny Krause MD Specimens: A) - Small Bowel, Duodenum, Biopsy B) - Stomach, Antrum, Biopsy, Antral for H/H C) - Esophagus, Distal, Biopsy D) - Esophagus, Mid, Biopsy Performed By: #### 6 6121-5 ####[facility] LABIA [id number] [address] FINAL DIAGNOSIS Normal [facility] Comment on above: Order Comment: Speci dianne Type: TISSUE SPECIMENOrdering Facility: [facility] Address: [address] [place] [address] Result Comment: A. D uodenum, biopsy: - Duodenal mucosa with no diagnostic abnormality. B. Stomach, antrum, biopsy: - Gastric antral and oxyntic mucosa with no diagnostic abnormality. C. Esophagus, distal, biopsy: - Mildly active esophagitis, consistent with gastroesophageal reflux injury. D. Esophagus, mid, biopsy: - Squamous mucosa with no diagnostic abnormality. at 1550 EDT Performed By: #### 6 6121-5 ####[facility]IA [id number] [address] OF [facility] FINAL PERFORMING LAB Normal [facility] Comment on above: Order Comment: Speci men Type: TISSUE SPECIMENOrdering Facility: [facility] Address: [address] [place] [address] Result Comment: Diag nostic interpretation performed at: [facility], [address] [place] [address], [facility] [place] [address] CLIA# [id number] Dimensional Engineer: Bryant Ly MD Performed By: #### 6 6121-5 ####[facility] LABCLIA [id number] [place] [id number] [place] GROSS DESCRIPTION [facility] Comment on above: Order Comment: Speci men Type: TISSUE SPECIMENOrdering Facility: [facility] Address: [address] [place] [address] Result Comment: A. S mall Bowel, Duodenum, Biopsy Received in formalin is one piece of red-brown, soft tissue measuring 0.5 x 0.3 x 0.3 cm. Totally submitted in one cassette. B. Stomach, Antrum, Biopsy Received in formalin is one piece of red-brown, soft tissue measuring 0.4 x 0.3 x 0.3 cm. Totally submitted in one cassette. C. Esophagus, Distal, Biopsy Received in formalin are two pieces of nieto-pink, soft tissue aggregating to 0.8 x 0.3 x 0.2 cm. Totally submitted in one cassette. D. Esophagus, Mid, Biopsy Received in formalin is one piece of nieto-white, soft tissue measuring 0.5 x 0.2 x 0.1 cm. Totally submitted in one cassette. Gross examination performed at [facility], [address] [place] [address] February 12, 2025 6:12 PM Performed By: #### 6 6121-5 ####[facility] LABCLIA [id number] [place] [id number] [place] Upper GI endoscopyon 05-08-2 025 Upper GI endoscopy [facility] Gastrointestinal Endoscopy Patient Name: Ekta Myrick Procedure Date: 02/12/2025 10:02 AM Date of : 1965 Admit Type: Outpatient Age: 60 Gender: Male Note Status: Finalized Procedure: Upper GI endoscopy Indications: Abdominal pain in the left upper quadrant, Heartburn, Nausea Providers: Kayode Morse MD Patient Profile: This is a 60 year old male. Refer to note in patient chart for documentation of history and physical. Referring Physician: Queenie Jacobo (Referring MD) Medicines: Fentanyl 100 micrograms IV, Midazolam 5 mg IV, Diphenhydramine 50 mg IV, Benzocaine spray Complications: No immediate complications. Estimated blood loss: Minimal. Requesting Provider: Procedure: Pre-Anesthesia Assessment: - Prior to the procedure, a History and Physical was performed, and patient medications and allergies were reviewed. The patient's tolerance of previous anesthesia was also reviewed. The risks and benefits of the procedure and the sedation options and risks were discussed with the patient. All questions were answered, and informed consent was obtained. Prior Anticoagulants: The patient has taken no anticoagulant or antiplatelet agents. ASA Grade Assessment: III - A patient with severe systemic disease. After reviewing the risks and benefits, the patient was deemed in satisfactory condition to undergo the procedure. After obtaining informed consent, the endoscope was passed under direct vision. Throughout the procedure, the patient's blood pressure, pulse, and oxygen saturations were monitored continuously. The Endoscope was introduced through the mouth, and advanced to the second part of duodenum. The upper GI endoscopy was accomplished without difficulty. The patient tolerated the procedure well. Moderate Sedation: The administration of moderate sedation was initiated at 10:14. Moderate (conscious) sedation was personally administered by the endoscopist. The following parameters were monitored: oxygen saturation, heart rate, blood pressure, respiratory rate, EKG, adequacy of pulmonary ventilation, and response to care. Total physician intraservice time was 10 minutes. Findings: The Z-line was regular and was found 41 cm from the incisors. Biopsies were taken with a cold forceps for histology. Localized mild inflammation characterized by erythema was found in the prepyloric region of the stomach. Biopsies were taken with a cold forceps for Helicobacter pylori testing. The examined duodenum was normal. Biopsies for histology were taken with a cold forceps for evaluation of celiac disease. Impression: - Z-line regular, 41 cm from the incisors. Biopsied. - Gastritis, characterized by erythema. Biopsied. - Normal examined duodenum. Biopsied. Recommendation: - Patient has a contact number available for emergencies. The signs and symptoms of potential delayed complications were discussed with the patient. Return to normal activities tomorrow. Written discharge instructions were provided to the patient. - Resume previous diet. - Continue present medications. - Await pathology results. - Await pathology results. - Repeat upper endoscopy PRN for surveillance. - Return to nurse practitioner at appointment to be scheduled. Procedure Code(s): --- Professional --- 93166, Esophagogastroduodenoscopy, flexible, transoral; with biopsy, single or multiple G0500, Moderate sedation services provided by the same physician or other qualified health child care attendant school performing a gastrointestinal endoscopic service that sedation supports, requiring the presence of an independent trained observer to assist in the monitoring of the patient's level of consciousness and physiological status; initial 15 minutes of intra-service time; patient age 5 years or older (additional time may be reported with 70242, as appropriate) Diagnosis Code(s): --- Professional --- K29.70, Gastritis, unspecified, without bleeding R10.12, Left upper quadrant pain R12, Heartburn R11.0, Nausea CPT copyright 2020 [employer]. All rights reserved. The codes documented in this report are preliminary and upon graphic technician review may be revised to meet current compliance requirements. Attending Participation: I personally performed the entire procedure. Scope In: 10:20:30 AM Scope Out: 10:24:54 AM MD Kayode Kaminski MD 02/12/2025 10:30:30 AM This report has been signed electronically by Kayode Morse MD Number of Addenda: 0 Note Initiated On: 02/12/2025 10:02 AM Estimated Blood Loss: Estimated blood loss was minimal. Normal [facility] CNOVon 02-03-2025 CNOV Office Visit (GENSWS ) EKTA MYRICK ([id number]) 1965 M Date Time Provider Department 02/03/25 8:30 AM ODALISQUEENIE MORENO During your visit today, we recorded the following information about you: Temperature Pulse Blood pressure Weight 97.1 degrees 68/minute 140/86 95.3 kg Height 1.854 m Queenie Jacobo APRN.CNP 02/03/2025 9:58 AM Signed HISTORY AND PHYSICAL Ekta Myrick : 1965 REFERRING PHYSICIAN: Archie Castorena [address] [facility] [address] CHIEF COMPLAINT: Patient presents with: Consult: LUQ pain, EGD consult HPI: Ekta is a 60 year old male referred for endoscopy. Ekta notes LUQ pain x 6 mos. Ekta was evaluated by Dr. Stevenson who treated him for IBS with rifaximin but did not think he needed an EGD. Ekta notes abdominal pain. - LUQ pain x 6 mos- feels likes a pressure - notices a gurgling after eating when sitting upright in his recliner - does not radiate - notes nausea throughout the day AND in the morning - denies vomiting - denies unintentional weight loss Ekta notes heartburn. -spicy greasy foods -with gatorade Ekta denies dysphagia. Ekta denies a history of ulcers/ peptic ulcer disease. Ekta also notes that his LLQ looks like it sticks out further than the other side -does not cause pain -had right inguinal hernia repair years ago -believes he has a hernia there also Notes symptoms of IBS -treated by Dr. Stevenson in the past -normal colonoscopy 11/2023 CT ABD/PELV W/ IV 12/30/24 IMPRESSION: No acute findings or significant pathology. Status post appendectomy. Colonic diverticulosis; no acute pericolonic inflammatory changes. Prostatomegaly. Ekta has undergone prior endoscopy. NO EGD but colonoscopy in 2023 in [facility]. Sedation:Fentanyl 100 micrograms IV, Midazolam 5 mg IV, Diphenhydramine 50 mg IV Current Outpatient Medications Medication Sig atorvastatin (LIPITOR) 10 mg tablet Take 1 tablet by mouth daily at bedtime. For cholesterol. terbinafine HCl (LAMISIL) 250 mg tablet Take 1 tablet by mouth once daily. bimatoprost (LUMIGAN) 0.03 % ophthalmic drops Use 1 Drop in both eyes daily at bedtime. dorzolamide (TRUSOPT) 2 % ophthalmic solution Use 1 Drop in both eyes twice daily. ZOLOFT 100 MG TAB Take one(1) tablet daily. No current facility-administered medications for this visit. ALLERGIES: Patient has no known allergies. PAST MEDICAL HISTORY Diagnosis Date Agoraphobia with panic disorder 07/21/2005 Dr. Kc Anxiety disorder in conditions classified elsewhere Cholelithiasis 11/03/2023 Chronic angle-closure glaucoma of both eyes 02/13/2017 Colon polyp 12/04/2013 Esophageal reflux GERD (gastroesophageal reflux disease) 02/08/2011 Glaucoma Hyperlipidemia 07/21/2005 Impaired fasting glucose 11/05/2013 Irritable bowel syndrome with diarrhea 02/26/2024 PAST SURGICAL HISTORY Procedure Laterality Date APPENDECTOMY 1979 CATARACT EXTRACTION W/ INTRAOCULAR LENS IMPLANT HX Bilateral 11/2018 w/ glaucoma procedure. COLONOSCOPY FLX DX W/COLLJ SPEC WHEN PFRMD 12/04/2013 Colonoscopy COLONOSCOPY SCREENING 11/15/2023 EXPLORATORY LAPAROTOMY CELIOTOMY W/WO BIOPSY SPX 1979 Laparotomy, exp ;Adhesions FAMILY HISTORY Problem Relation Age of Onset Breast Cancer Mother Alzheimer's Disease Mother Hypertension Mother Hypertension Father Diabetes Father Blood Disease Father recurrent DVT on chronic warfarin Arthritis Brother knee replaced No Known Problems Sister Colon Cancer Maternal Grandfather No Known Problems Brother Social History Tobacco Use Smoking status: Never Smokeless tobacco: Never Vaping Use Vaping status: Never Used Substance Use Topics Alcohol use: No Drug use: No PHYSICAL EXAMINATION: General: The patient is 60 year old, male well nourished, well hydrated in no acute distress. The patient is oriented to time, place, and person. VITALS: Blood pressure 140/86, pulse 68, temperature 36.2 ?C (97.1 ?F), height 185.4 cm (6' 1), weight 95.3 kg (210 lb 3.2 oz), SpO2 97%. Body mass index is 27.73 kg/m?. HEENT: Normal cephalic, ataumatic, pupils are equally round, sclera are anicteric, mucous membranes are moist, oropharynx is clear. Neck has no masses, asymmetry or lymphadenopathy. Respiratory: Clear to auscultation and percussion. Normal respiratory excursion and pattern. Cardiac: Examination is regular rate and rhythm. Normal S1/S2 Abdominal exam: Soft, nontender, with no palpable masses. No hepatosplenomegaly. No palpable hernias. Extremities: no clubbing, cyanosis or edema. No adenopathy. LABORATORY VALUES: As Noted RADIOLOGIC STUDIES: As Noted Assessment IMPRESSION: LUQ pain, nausea, heart burn PLAN: I have reviewed my findings with the surgeon. Will plan for upper endoscopy. We discussed the risks and benefits of the planned endoscopy in [facility] (more content not included)... [facility] (GENSWS) EKTA MYRICK ([id number]) 1965 M Date Time Provider Department 02/03/25 QUEENIE JACOBO GENSWS During your visit today, we recorded the following information about you: Ayah Wright 02/03/2025 9:04 AM Signed 02-12-2025 EGD Channing Morse Allergies As of Date: 02/03/2025 (No Known Allergies) Date Reviewed: 02/03/2025 Reviewed by: Queenie Jacobo APRN.CLINICAL APPEALS AUDITOR - Fully Assessed Reason for Visit: 02-12-2025 EGD Channing Morse [Other] Prescriptions as of 04/09/2025 - omeprazole (PRILOSEC) 20 mg capsule Take 1 capsule by mouth once daily. - atorvastatin (LIPITOR) 10 mg tablet Take 1 tablet by mouth daily at bedtime. For cholesterol. - terbinafine HCl (LAMISIL) 250 mg tablet Take 1 tablet by mouth once daily. - bimatoprost (LUMIGAN) 0.03 % ophthalmic drops Use 1 Drop in both eyes daily at bedtime. - dorzolamide (TRUSOPT) 2 % ophthalmic solution Use 1 Drop in both eyes twice daily. - ZOLOFT 100 MG TAB Take one(1) tablet daily. Problem List As Of Date 02/03/2025 Noted Resolved AGORAPHOBIA WITH PANIC DISORDER [F40.01] 07/21/2005 ESOPHAGEAL REFLUX [K21.9] 07/21/2005 08/10/2006 Hyperlipidemia [E78.5] 07/21/2005 GERD (gastroesophageal reflux disease) [K21.9] 02/08/2011 07/19/2012 Right inguinal hernia [K40.90] 07/19/2012 02/13/2017 Impaired fasting glucose [R73.01] 11/05/2013 Colon polyp [K63.5] 12/04/2013 08/07/2024 Chronic angle-closure glaucoma of both eyes [H4*02/13/2017 Elevated PSA [R97.20] 03/02/2019 Varicose veins of both lower extremities with p*06/23/2020 Neuropathy - (NOS) [G62.9] 06/23/2020 BPH without obstruction/lower urinary tract sym*02/26/2024 Irritable bowel syndrome with diarrhea [K58.0] 02/26/2024 Encounter Status:Closed by AYAH WRIGHT on 04/09/25 [facility] CNOVon 01-30-2025 CNOV Office Visit (INTMWS ) EKTA MYRICK ([id number]) 1965 M Date Time Provider Department 01/30/25 9:00 AM ARCHIE CASTORENA INTMWS During your visit today, we recorded the following information about you: Temperature Pulse Respiration Blood pressure 97.8 degrees 64/minute 14/minute 122/70 Weight Height 95.3 kg 1.854 m Archie Castorena MD 01/30/2025 9:37 AM Signed This note was created using NoteWriter. Subjective Ekta Myrick is a 60 year old male. He was seen last month for RLQ pain which improved. Abdominal pain now of concern is located LUQ without radiation present for 6 months and is constant. Pain is described as pressure and mild in severity. He notices this with bowel movements and when bending over. He was interested in an upper endoscopy and a 2nd opinion as Dr. Stevenson did not recommend EGD. He was treated for IBS with rifaximin but preferred further evaluation rather than another course of rifaximin. His CT of the abdomen and pelvis last month was essentially normal. Review of Systems Constitutional: Negative for fatigue and fever. Respiratory: Negative for shortness of breath. Cardiovascular: Negative for chest pain. Gastrointestinal: Negative for blood in stool, constipation, diarrhea, nausea and vomiting. Genitourinary: Negative for difficulty urinating and dysuria. ACTIVE PROBLEM LIST Agoraphobia With Panic Disorder Hyperlipidemia Impaired Fasting Glucose Chronic Angle-Closure Glaucoma of Both Eyes Elevated Psa Varicose Veins of Both Lower Extremities With Pain Neuropathy - (Nos) Bph Without Obstruction/Lower Urinary Tract Symptoms Irritable Bowel Syndrome With Diarrhea PAST SURGICAL HISTORY Procedure Laterality Date APPENDECTOMY 1979 CATARACT EXTRACTION W/ INTRAOCULAR LENS IMPLANT HX Bilateral 11/2018 w/ glaucoma procedure. COLONOSCOPY FLX DX W/COLLJ SPEC WHEN PFRMD 12/04/2013 Colonoscopy COLONOSCOPY SCREENING 11/15/2023 EXPLORATORY LAPAROTOMY CELIOTOMY W/WO BIOPSY SPX 1979 Laparotomy, exp ;Adhesions Social History Tobacco Use Smoking status: Never Smokeless tobacco: Never Substance Use Topics Alcohol use: No Drug use: No Current Outpatient Medications Medication Sig atorvastatin (LIPITOR) 10 mg tablet Take 1 tablet by mouth daily at bedtime. For cholesterol. terbinafine HCl (LAMISIL) 250 mg tablet Take 1 tablet by mouth once daily. bimatoprost (LUMIGAN) 0.03 % ophthalmic drops Use 1 Drop in both eyes daily at bedtime. dorzolamide (TRUSOPT) 2 % ophthalmic solution Use 1 Drop in both eyes twice daily. ZOLOFT 100 MG TAB Take one(1) tablet daily. latanoprost (XALATAN) 0.005 % ophthalmic solution Use 1 Drop in both eyes daily at bedtime. TO AFFECTED EYE(S) (Patient not taking: Reported on 08/07/2024) No current facility-administered medications for this visit. Objective BP 122/70 (BP Site: Left Arm, BP Position: Sitting, BP Cuff Size: Large Adult) Pulse 64 Temp 36.6 ?C (97.8 ?F) (Temporal) Resp 14 Ht 185.4 cm (6' 1) Wt 95.3 kg (210 lb 1.6 oz) SpO2 97% BMI 27.72 kg/m? Physical Exam Constitutional: General: He is not in acute distress. Appearance: He is not ill-appearing. Cardiovascular: Heart sounds: Normal heart sounds. Pulmonary: Breath sounds: Normal breath sounds. Abdominal: Palpations: Abdomen is soft. There is no mass. Tenderness: There is no abdominal tenderness. Musculoskeletal: Right lower leg: No edema. Left lower leg: No edema. Neurological: Mental Status: He is alert. Test results pertinent to today's visit were reviewed and discussed with the patient. Assessment and Plan 1. LUQ abdominal pain - ICD9: 789.02, ICD10: R10.12 (primary diagnosis) Etiology unclear. Interested in EGD. Differential Diagnosis includes IBS - CONSULT TO GENERAL SURGERY 2. Irritable bowel syndrome with diarrhea - ICD9: 564.1, ICD10: K58.0 - He declined to go back to Dr. Stevenson. He declined another round of rifaximin. 3. Other hyperlipidemia - ICD9: 272.4, ICD10: E78.49 - COMPREHENSIVE METABOLIC PANEL - LIPID PANEL, FASTING 4. Impaired fasting glucose - ICD9: 790.21, ICD10: R73.01 - HEMOGLOBIN A1C 5. Elevated PSA - ICD9: 790.93, ICD10: R97.20 - EXECUTIVE PANEL PSA, FREE AND TOTAL 6. BPH without obstruction/lower urinary tract symptoms - ICD9: 600.00, ICD10: N40.0 Asymptomatic. Archie Castorena MD Allergies As of Date: 01/30/2025 (No Known Allergies) Date Reviewed: 01/30/2025 Reviewed by: Keyanna Faustin LPN - Fully Assessed Reason for Visit: F/U 6 months [1177] Primary Visit Diagnosis:LUQ abdominal pain [R10.12] Other Visit Diagnoses:Irritable bowel syndrome with diarrhea [K58.0] Other hyperlipidemia [E78.49] Impaired fasting glucose [R73.01] Elevated PSA [R97.20] BPH without obstruction/lower urinary tract symptoms [N40.0] Order(s):CONSULT TO GENERAL SURGERY [4653] Order #: 2 (more content not included)... Normal [facility] Bilirub Conj SerPl-mCncon Bilirubin.conjugat ed [Mass/Vol] 0.3 mg/dL High <0.3 [facility] Comment on above: Order Comment: Speci men Type: BLOOD SPECIMENOrdering Facility: [facility] Address: [address] [place] [address] Performed By: #### 1 5152-2, 58404-8 ####[facility] WESTVALENTINASUDARSHAN [id number] [place] [address] [place] CBC panel Auto (Bld)on 12-30 Erythrocyte distribution width (RBC) [Ratio] 11.8 % Normal 11.5-15.0 [facility] Comment on above: Order Comment: Speci men Type: BLOOD SPECIMENOrdering Facility: [facility] Address: [address] [place] [address] Performed By: #### 5 8410-2 ####[facility] [id number] [address] [place] Hematocrit (Bld) [Volume fraction] 43.8 % Normal 39.0-51.0 [facility] Comment on above: Order Comment: Speci men Type: BLOOD SPECIMENOrdering Facility: [facility] Address: [address] [place] [address] Performed By: #### 5 8410-2 ####[facility] [id number] [address] [place] Hemoglobin (Bld) [Mass/Vol] 14.8 g/dL Normal 13.0-17.0 [facility] Comment on above: Order Comment: Speci men Type: BLOOD SPECIMENOrdering Facility: [facility] Address: [address] [place] [address] Performed By: #### 5 8410-2 ####[facility] [id number] [place] [address] [place] MCH (RBC) [Entitic mass] 30.5 pg Normal 26.0-34.0 [facility] Comment on above: Order Comment: Speci men Type: BLOOD SPECIMENOrdering Facility: [facility] Address: [address] [place] [address] Performed By: #### 5 8410-2 ####[facility] MILLTOWNCLIA [id number] [address] [place] MCHC (RBC) [Mass/Vol] 33.8 g/dL Normal 30.5-36.0 [facility] Comment on above: Order Comment: Speci men Type: BLOOD SPECIMENOrdering Facility: [facility] Address: [address] [place] [address] Performed By: #### 5 8410-2 ####[facility] WESTNCLIA [id number] [place] [address] [place] MCV (RBC) [Entitic vol] 90.3 fL Normal 80.0-100.0 [facility] Comment on above: Order Comment: Speci men Type: BLOOD SPECIMENOrdering Facility: [facility] Address: [address] [place] [address] Performed By: #### 5 8410-2 ####[facility] WESTNCLIA [id number] [place] [address] [place] Nucleated RBC (Bld) [#/Vol] 10*3/uL Normal <0.01 [facility] Comment on above: Order Comment: Speci men Type: BLOOD SPECIMENOrdering Facility: [facility] Address: [address] [place] [address] Performed By: #### 5 8410-2 ####[facility] WESTNCLIA [id number] [place] [address] [place] Platelet mean volume (Bld) [Entitic vol] 9.6 fL Normal 9.0-12.7 [facility] Comment on above: Order Comment: Speci men Type: BLOOD SPECIMENOrdering Facility: [facility] Address: [address] [place] [address] Performed By: #### 5 8410-2 ####[facility] WESTNCLIA [id number] [place] [address] [place] Platelets (Bld) [#/Vol] 165 10*3/uL Normal 150-400 [facility] Comment on above: Order Comment: Speci men Type: BLOOD SPECIMENOrdering Facility: [facility] Address: [address] [place] [address] Performed By: #### 5 8410-2 ####[facility] WESTNCA [id number] [place] [address] [place] RBC (Bld) [#/Vol] 4.85 10*6/uL Normal 4.20-6.00 [facility] Comment on above: Order Comment: Speci men Type: BLOOD SPECIMENOrdering Facility: [facility] Address: [address] [place] [address] Performed By: #### 5 8410-2 ####[facility] [id number] [place] [address] [place] WBC (Bld) [#/Vol] 5.41 10*3/uL Normal 3.70-11.00 [facility] Comment on above: Order Comment: Speci men Type: BLOOD SPECIMENOrdering Facility: [facility] Address: [address] [place] [address] Performed By: #### 5 8410-2 ####[facility] WESTNCLIA [id number] [place] [address] [place] ABD/PEL W IVCONon 025 CT ABD/PEL W IVCON * * *Final Report* * * DATE OF EXAM: Dec 30 2024 9:58AM [facility] 0530 - CT ABD/PEL W IVCON / PROCEDURE REASON: Right lower quadrant abdominal pain * * * * Physician Interpretation * * * * EXAMINATION: CT ABD/PEL W IVCON CLINICAL HISTORY: Right lower quadrant abdominal pain TECHNIQUE: CT of the abdomen and pelvis was performed using standard technique, scanning from just above the dome of the diaphragm to the symphysis pubis. Contrast: IV: 100 ml of Omnipaque 350 Oral: 10 ml of Omni 240 10-25ml diluted with water Dose-Length Product (DLP): 642 mGy*cm CT Dose Reduction Employed: Automated exposure control(AEC) and iterative recon COMPARISON: 03/14/2023 RESULT: Lower thorax: Unremarkable. Liver: No mass. Biliary: Gallbladder is nondistended. No biliary duct dilatation. Spleen: No mass. No splenomegaly. Pancreas: No mass or ductal dilatation. Adrenal glands: Unremarkable. Kidneys: Simple 5.3 cm right cyst. Subcentimeter low attenuating lesion also in the right kidney is too small for reliable. . Statistically favor benign cysts as well. No solid, enhancing mass or hydronephrosis in either kidney. Vascular: Normal caliber abdominal aorta . GI tract: No dilation or wall thickening. The appendix is not visualized and likely surgically absent. Scattered colonic diverticulosis. No acute pericolonic inflammatory change. Pelvis: No mass, fluid or collection. Unremarkable urinary bladder . The prostate gland is enlarged, measuring 5.6 cm in the transverse dimension. Lymph nodes: No abdominal or pelvic lymphadenopathy, by size criteria. Mesentery/Peritoneum/Retrope ritoneum: No ascites, pneumoperitoneum or suspicious mass. Soft Tissues/Bones: No destructive osseous lesion. No suspicious body wall findings. IMPRESSION: No acute findings or significant pathology. Status post appendectomy. Colonic diverticulosis; no acute pericolonic inflammatory changes. Prostatomegaly. Senior Business Development Manager: IMTIAZ Transcribe Date/Time: Jan 05 2025 4:18P Dictated by : HOMERO WALKER MD This examination was interpreted and the report reviewed and electronically signed by: HOMERO WALKER MD on Jan 05 2025 4:23PM EST [id number] Normal [facility] Comprehensive metabolic 2000 panelon 12-30-2024 Albumin [Mass/Vol] 4.2 g/dL Normal 3.9-4.9 [facility] Comment on above: Order Comment: Speci men Type: BLOOD SPECIMENOrdering Facility: [facility] Address: [address] [place] [address] Performed By: #### 1 5152-2, 39007-0 ####[facility] HOSPITALLIA [id number] [place] [address] [place] ALP [Catalytic activity/Vol] 115 U/L High 38-113 [facility] Comment on above: Order Comment: Speci men Type: BLOOD SPECIMENOrdering Facility: [facility] Address: [address] [place] [address] Performed By: #### 1 5152-2, 97539-7 ####[facility] HOSPITALSUDARSHANA [id number] [place] [address] [place] ALT [Catalytic activity/Vol] 53 U/L Normal 10-54 [facility] Comment on above: Order Comment: Speci men Type: BLOOD SPECIMENOrdering Facility: [facility] Address: [address] [place] [address] Performed By: #### 1 5152-2, 99992-6 ####[facility] HOSPITALAlfred [id number] [place] [address] [place] Anion gap [Moles/Vol] 9 mmol/L Normal 8-15 [facility] Comment on above: Order Comment: Speci men Type: BLOOD SPECIMENOrdering Facility: [facility] Address: [address] [place] [address] Performed By: #### 1 5152-2, 88283-3 ####[facility] WESTJC [id number] [place] [address] [place] AST [Catalytic activity/Vol] 29 U/L Normal 14-40 [facility] Comment on above: Order Comment: Speci men Type: BLOOD SPECIMENOrdering Facility: [facility] Address: [address] [place] [address] Performed By: #### 1 5152-2, 73584-2 ####[facility] WESTNCLIA [id number] [place] [address] [place] Bilirubin [Mass/Vol] 1.0 mg/dL Normal 0.2-1.3 [facility] Comment on above: Order Comment: Speci men Type: BLOOD SPECIMENOrdering Facility: [facility] Address: [address] [place] [address] Performed By: #### 1 5152-2, 86384-1 ####[facility] WESTNCSUDARSHANA [id number] [place] [address] [place] Calcium [Mass/Vol] 9.4 mg/dL Normal 8.5-10.2 [facility] Comment on above: Order Comment: Speci men Type: BLOOD SPECIMENOrdering Facility: [facility] Address: [address] [place] [address] Performed By: #### 1 5152-2, 10569-4 ####[facility] [id number] [place] [address] [place] Chloride [Moles/Vol] 101 mmol/L Normal 98-107 [facility] Comment on above: Order Comment: Speci men Type: BLOOD SPECIMENOrdering Facility: [facility] Address: [address] [place] [address] Performed By: #### 1 5152-2, 45686-8 ####[facility] HOSPITALAlfred [id number] [place] [address] [place] CO2 [Moles/Vol] 27 mmol/L Normal 22-30 [facility] Comment on above: Order Comment: Speci men Type: BLOOD SPECIMENOrdering Facility: [facility] Address: [address] [place] [address] Performed By: #### 1 5152-2, 69006-9 ####[facility] HOSPITALLIA [id number] [place] [address] [place] Creatinine [Mass/Vol] 1.00 mg/dL Normal 0.73-1.22 [facility] Comment on above: Order Comment: Speci men Type: BLOOD SPECIMENOrdering Facility: [facility] Address: [address] [place], [place] [address] Performed By: #### 1 5152-2, 95253-5 ####[facility] WESTNCLIA [id number] [place] [address] [place] Creatinine and Glomerular filtration rate.predicted panel (S/P/Bld) 86 mL/min/1.73m??? Normal >=60 [facility] Comment on above: Order Comment: Reba men Type: BLOOD SPECIMENOrdering Facility: [facility] Address: [address] [place] [address] Result Comment: Caprice mated Glomerular Filtration Rate (eGFR) is calculated using the 2020 CKD-EPI creatinine equation. This equation utilizes serum creatinine, sex, and age as parameters. The creatinine assay has traceable calibration to isotope dilution-mass spectrometry. Refer to KDIGO guidelines for clinical interpretation. In patients with unstable renal function, e.g. those with acute kidney injury, the eGFR may not accurately reflect actual GFR. Performed By: #### 1 5152-2, 67661-2 ####[facility] WESTNCLIA [id number] [place] [address] [place] Glucose [Mass/Vol] 108 mg/dL High 74-99 [facility] Comment on above: Order Comment: Reba dianne Type: BLOOD SPECIMENOrdering Facility: [facility] Address: [address] [place] [address] Result Comment: The [place] Diabetes Association (ADA) provides guidance for cutoff values for fasting glucose and random glucose. The ADA defines fasting as no caloric intake for at least 8 hours. Fasting plasma glucose results between 100 to 125 mg/dL indicate increased risk for diabetes (prediabetes). Fasting plasma glucose results greater than or equal to 126 mg/dL meet the criteria for diagnosis of diabetes. In the absence of unequivocal hyperglycemia, results should be confirmed by repeat testing. In a patient with classic symptoms of hyperglycemia or hyperglycemic crisis, random plasma glucose results greater than or equal to 200 mg/dL meet the criteria for diagnosis of diabetes. Reference: Standards of Medical Care in Diabetes 2016, [place] [employer] Association. Diabetes Care. 2016.39(Suppl 1). Performed By: #### 1 5152-2, 36096-4 ####[facility] MANISHAAMY [id number] [place] [address] [place] Potassium [Moles/Vol] 4.1 mmol/L Normal 3.7-5.1 [facility] Comment on above: Order Comment: Speci men Type: BLOOD SPECIMENOrdering Facility: [facility] Address: [address] [place] [address] Performed By: #### 1 5152-2, 00310-0 ####[facility] WESTJC [id number] [place] [address] [place] Protein [Mass/Vol] 7.3 g/dL Normal 6.3-8.0 [facility] Comment on above: Order Comment: Speci men Type: BLOOD SPECIMENOrdering Facility: [facility] Address: [address] [place] [address] Performed By: #### 1 5152-2, 08878-7 ####[facility] WE[facility]JC [id number] [place] [address] [place] Sodium [Moles/Vol] 137 mmol/L Normal 136-144 [facility] Comment on above: Order Comment: Speci men Type: BLOOD SPECIMENOrdering Facility: [facility] Address: [address] [place] [address] Performed By: #### 1 5152-2, 85688-5 ####[facility] WE[facility]JC [id number] [place] [address] [place] Urea nitrogen [Mass/Vol] 18 mg/dL Normal 9-24 [facility] Comment on above: Order Comment: Speci men Type: BLOOD SPECIMENOrdering Facility: [facility] Address: [address] [place] [address] Performed By: #### 1 5152-2, 23413-7 ####[facility] DYERWNCLIAlfred [id number] [place] [address] [place] CNOVon 12-15-2024 CNOV Office Visit (INTMWS ) EKTA MYRICK ([id number]) 1965 M Date Time Provider Department 12/15/24 6:40 PM ARCHIE CASTORENA INTMWS During your visit today, we recorded the following information about you: Temperature Pulse Respiration Blood pressure 98.6 degrees 71/minute 1/minute 131/77 Weight 95 kg Archie Castorena MD 12/16/2024 8:08 AM Signed This note was created using [employer]. Subjective Patient presents with: Pain Ekta Myrick is a 59 year old male here with worsening chronic right lower quadrant pain for the past 2 months. He had improvement of this several months ago, after he was treated by Dr. Stevenson for irritable bowel with rifaximin. He was now concerned about a hernia, since pain was aggravated by bending over. Review of Systems Constitutional: Negative for appetite change, diaphoresis, fatigue and unexpected weight change. Respiratory: Negative for shortness of breath. Cardiovascular: Negative for chest pain. Gastrointestinal: Negative for abdominal distention, blood in stool, constipation, diarrhea, nausea and vomiting. Genitourinary: Negative for difficulty urinating, dysuria, flank pain and hematuria. ACTIVE PROBLEM LIST Agoraphobia With Panic Disorder Hyperlipidemia Impaired Fasting Glucose Chronic Angle-Closure Glaucoma of Both Eyes Elevated Psa Varicose Veins of Both Lower Extremities With Pain Neuropathy - (Nos) Bph Without Obstruction/Lower Urinary Tract Symptoms Irritable Bowel Syndrome With Diarrhea Social History Tobacco Use Smoking status: Never Smokeless tobacco: Never Substance Use Topics Alcohol use: No Drug use: No Current Outpatient Medications Medication Sig terbinafine HCl (LAMISIL) 250 mg tablet Take 1 tablet by mouth once daily. bimatoprost (LUMIGAN) 0.03 % ophthalmic drops Use 1 Drop in both eyes daily at bedtime. dorzolamide (TRUSOPT) 2 % ophthalmic solution Use 1 Drop in both eyes twice daily. ZOLOFT 100 MG TAB Take one(1) tablet daily. atorvastatin (LIPITOR) 10 mg tablet Take 1 tablet by mouth daily at bedtime. For cholesterol. iv contrast (will be provided with radiology test) CT ABD/PEL -Inject, intravenously, once for 1 dose.No IV access, insert saline lock prior to the beginning of sedation, infusion, injection of imaging exam. Discontinue saline lock post exam. If Pt. has a central line or IVAD, may access for administration according to line specific nursing protocol. Once exam is complete flush line and de-access according to line specific nursing protocol in the CT contrast administration guidelines link. enteric contrast (will be provided with radiology test) For CT ABD/PEL W IVCON Routine order Administer, As Directed One Time Only, via Oral, Rectal, both Oral and Rectal, Enteric Tube, Stoma or Indwelling Catheter, Enteric Contrast as designated per enteric contrast guidelines latanoprost (XALATAN) 0.005 % ophthalmic solution Use 1 Drop in both eyes daily at bedtime. TO AFFECTED EYE(S) (Patient not taking: Reported on 08/07/2024) No current facility-administered medications for this visit. Objective BP 131/77 (BP Site: Left Arm, BP Position: Sitting, BP Cuff Size: Large Adult) Pulse 71 Temp 37 ?C (98.6 ?F) (Temporal) Resp (!) 1 Wt 95 kg (209 lb 7 oz) BMI 27.63 kg/m? Physical Exam Constitutional: General: He is not in acute distress. Appearance: He is not ill-appearing. Cardiovascular: Heart sounds: Normal heart sounds. Pulmonary: Breath sounds: Normal breath sounds. Abdominal: General: Bowel sounds are normal. Palpations: Abdomen is soft. There is no mass. Tenderness: There is abdominal tenderness in the right lower quadrant. There is no guarding or rebound. Hernia: No hernia is present. Neurological: Mental Status: He is alert. Assessment and Plan 1. Right lower quadrant abdominal pain - ICD9: 789.03, ICD10: R10.31 (primary diagnosis) Etiology unclear - COMPLETE BLOOD COUNT - COMPREHENSIVE METABOLIC PANEL - CT ABD/PEL W IVCON - IV CONTRAST (RADIOLOGY PROCEDURE) - NOT ON MAR - ENTERIC CONTRAST (RADIOLOGY PROCEDURE) - NOT ON MAR - Further recommendations, referrals will depend on findings. 2. Irritable bowel syndrome with diarrhea - ICD9: 564.1, ICD10: K58.0 Stable. 3. Other hyperlipidemia - ICD9: 272.4, ICD10: E78.49 Refilled. - ATORVASTATIN 10 MG TABLET Archie Castorena MD Allergies As of Date: 12/15/2024 (No Known Allergies) Date Reviewed: 12/15/2024 Reviewed by: Laurel Coy LPN - Fully Assessed Reason for Visit: Pain [78] Primary Visit Diagnosis:Right lower quadrant abdominal pain [R10.31] Other Visit Diagnoses:Irritable bowel syndrome with diarrhea [K58.0] Other hyperlipidemia [E78.49] Order(s):atorvastatin (LIPITOR) 10 mg tabletTake 1 tablet by mouth daily at bedtime. For cholesterol.Disp: 90 tabletRfl: 3 COMPLETE BLOOD C (more content not included)... [facility] [facility] Telephone (PODIWS) EKTA MYRICK ([id number]) 1965 M Date Time Provider Department 11/04/24 RYAN ROSA During your visit today, we recorded the following information about you: Theresa Stevens LPN 11/05/2024 11:01 AM Signed Ryan Rosa [facility] Pool16 hours ago (6:37 PM) Please call patient to tell him that his blood work shows liver enzymes that are essentially normal. One is actually lower than normal range. If he is interested in lamisil, can call this in for him. Just need to know which pharmacy to send to SUKH Ortiz Amelia, LPN 11/05/2024 11:03 AM Signed Called patient to provide below results. No response. Left VM. STEVE Anderson Amy M, MA 11/06/2024 4:55 PM Signed Patient returned call. Message from Dr. Rosa given and patient verbalized understanding. Please sent Rx to [facility] in [place]. Theresa Stevens LPN 11/10/2024 10:25 AM Signed Ryan Rosa [facility] Pool2 days ago Lamisil sent to pharmacy. Please have patient get blood work in 1 month and again in 3 months. If he has any issues with the medication, ie upset stomach or rash, he is to discontinue the medication SUKH Ortiz Amelia, LPN 11/10/2024 10:25 AM Signed Called patient to provided providers instruction below. No response. Left VM. STEVE Anderson Amanda, RN 11/11/2024 4:47 PM Signed Patient called in and verified name and . Informed him of below message. Patient agreeable to repeat labs. No further questions at this time. Allergies As of Date: 11/04/2024 (No Known Allergies) Date Reviewed: 11/03/2024 Reviewed by: Theresa Stevens LPN - Fully Assessed Reason for Visit: Results [95] Primary Visit Diagnosis:Dermatophytosis of nail [B35.1] Order(s):terbinafine HCl (LAMISIL) 250 mg tabletTake 1 tablet by mouth once daily.Disp: 30 tabletRfl: 2 HEPATIC FUNCTION PNL [SQHFP] Order #: [id number] FUTURE HEPATIC FUNCTION PNL [SQHFP] Order #: [id number] FUTURE Prescriptions as of 11/11/2024 - terbinafine HCl (LAMISIL) 250 mg tablet Take 1 tablet by mouth once daily. - bimatoprost (LUMIGAN) 0.03 % ophthalmic drops Use 1 Drop in both eyes daily at bedtime. - atorvastatin (LIPITOR) 10 mg tablet Take 1 tablet by mouth daily at bedtime. For cholesterol. - dorzolamide (TRUSOPT) 2 % ophthalmic solution Use 1 Drop in both eyes twice daily. - latanoprost (XALATAN) 0.005 % ophthalmic solution Use 1 Drop in both eyes daily at bedtime. TO AFFECTED EYE(S) - ZOLOFT 100 MG TAB Take one(1) tablet daily. Problem List As Of Date 11/04/2024 Noted Resolved AGORAPHOBIA WITH PANIC DISORDER [F40.01] 07/21/2005 ESOPHAGEAL REFLUX [K21.9] 07/21/2005 08/10/2006 Hyperlipidemia [E78.5] 07/21/2005 GERD (gastroesophageal reflux disease) [K21.9] 02/08/2011 07/19/2012 Right inguinal hernia [K40.90] 07/19/2012 02/13/2017 Impaired fasting glucose [R73.01] 11/05/2013 Colon polyp [K63.5] 12/04/2013 08/07/2024 Chronic angle-closure glaucoma of both eyes [H4*02/13/2017 Elevated PSA [R97.20] 03/02/2019 Varicose veins of both lower extremities with p*06/23/2020 Neuropathy - (NOS) [G62.9] 06/23/2020 BPH without obstruction/lower urinary tract sym*02/26/2024 Irritable bowel syndrome with diarrhea [K58.0] 02/26/2024 Prescriptions ordered this encounter Disp Refills Start End TERBINAFINE HCL 250 MG TABLET 30 t* 2 11/08/2024 Route: ORAL Sig: Take 1 tablet by mouth once daily. Encounter Status:Closed by RYAN ROSA DPM on 11/08/24 [facility] CNOVon 11-03-2024 CNOV Office Visit (PODIWS ) EKTA MYRICK ([id number]) 1965 M Date Time Provider Department 11/03/24 8:00 AM RYAN ROSA PODIWS During your visit today, we recorded the following information about you: Theresa Stevens LPN 11/03/2024 8:26 AM Signed AMB ROOMING INTAKE FLOWSHEET DATA Patient presents with: Left Foot - nail deformity , New Right Foot - nail deformity , New STEVE Anderson, Ryan 11/03/2024 8:26 AM Signed Consultation requested by Dr. Castorena for an opinion regarding nail deformity. My final recommendations will be communicated back to the requesting physician by way of shared Medical record or letter to requesting physician via US mail. Initial Podiatric Office Visit: Chief Complaint: This 59 year old male who presents with chief complaint:nail discoloration HPI Patient presents to clinic for evaluation of b/l feet. Complains of thick discolored toenails of b/l feet. Has been this way for several years. He currently cuts the nails himself. Has no issues cutting other than he has to be careful as they can tend to bleed He is here to discuss options. PAIN EVALUATION No data found in the last 1 encounters. Hemoglobin A1C (%) Date Value 08/08/2022 5.8 06/18/2021 6.0 02/28/2020 5.9 03/01/2019 5.9 06/08/2018 5.8 11/30/2017 6.0 PCP: Archie Castornea MD PAST MEDICAL HISTORY Diagnosis Date Agoraphobia with panic disorder 07/21/2005 Dr. Kc Anxiety disorder in conditions classified elsewhere Cholelithiasis 11/03/2023 Chronic angle-closure glaucoma of both eyes 02/13/2017 Colon polyp 12/04/2013 Esophageal reflux GERD (gastroesophageal reflux disease) 02/08/2011 Glaucoma Hyperlipidemia 07/21/2005 Impaired fasting glucose 11/05/2013 Irritable bowel syndrome with diarrhea 02/26/2024 Current Outpatient Medications Medication Sig bimatoprost (LUMIGAN) 0.03 % ophthalmic drops Use 1 Drop in both eyes daily at bedtime. atorvastatin (LIPITOR) 10 mg tablet Take 1 tablet by mouth daily at bedtime. For cholesterol. dorzolamide (TRUSOPT) 2 % ophthalmic solution Use 1 Drop in both eyes twice daily. latanoprost (XALATAN) 0.005 % ophthalmic solution Use 1 Drop in both eyes daily at bedtime. TO AFFECTED EYE(S) (Patient not taking: Reported on 08/07/2024) ZOLOFT 100 MG TAB Take one(1) tablet daily. No current facility-administered medications for this visit. ALLERGIES No Known Allergies PAST SURGICAL HISTORY Procedure Laterality Date APPENDECTOMY 1979 CATARACT EXTRACTION W/ INTRAOCULAR LENS IMPLANT HX Bilateral 11/2018 w/ glaucoma procedure. COLONOSCOPY FLX DX W/COLLJ SPEC WHEN PFRMD 12/04/2013 Colonoscopy COLONOSCOPY SCREENING 11/15/2023 EXPLORATORY LAPAROTOMY CELIOTOMY W/WO BIOPSY SPX 1980 Laparotomy, exp ;Adhesions FAMILY HISTORY Problem Relation Age of Onset Breast Cancer Mother Alzheimer's Disease Mother Hypertension Mother Hypertension Father Diabetes Father Blood Disease Father recurrent DVT on chronic warfarin Arthritis Brother knee replaced No Known Problems Sister Colon Cancer Maternal Grandfather No Known Problems Brother Social History Tobacco Use Smoking status: Never Smokeless tobacco: Never Substance Use Topics Alcohol use: No Drug use: No REVIEW OF SYSTEMS GENERAL: Negative for Malaise, significant weight loss, fever RESPIRATORY: Negative for cough, wheezing and shortness of breath CARDIOVASCULAR: Negative for chest pain, leg swelling and palpitations GI: Negative for abdominal discomfort, blood in stools or black stools and change in bowel habits : Negative for dysuria, frequency and incontinence MUSCULOSKELETAL: Negative for joint pain or swelling, back pain, and muscle pain. SKIN: Negative for lesions, rash, and itching. HEMATOLOGY/LYMPHOLOGY Negative for prolonged bleeding, bruising easily, and swollen nodes. ENDOCRINE: Negative for cold or heat intolerance, polyuria, polydipsia and goiter. NEURO: negative Physical Exam: Constitutional: Pt is a well developed 59 year old male who is alert, oriented and cooperative Eyes: Following during examination. No redness or drainage. Respiratory: RR normal and nonlabored. Even breathing. No evidence of distress or shortness of breath. Psychology: Patient is engaged during conversation. Normal affect and mood. Does not appear depressed or anxious during encounter. Vascular: Dorsalis pedis and posterior tibial pulses palpable as b/l Capillary Fill time < 5 seconds to digits 1-5 b/l Skin temperature warm to warm proximal to distal b/l Hair growth present to digits Neurological: intact light touch/epicritic sensation b/l intact protective sensation no significant neurological deficits Dermatological: Nails 1-4 left and 1,2,4 right are yellow, thick and discolored. Webspaces clean and dry 1-4 b/l. Skin appears (more content not included)... Normal [facility] Hepatic function 2000 panelO rdered By: Bre Aguillon on 11-03-2024 Albumin [Mass/Vol] 4.6 g/dL 3.9 - 4.9 g/dL [facility] ALP [Catalytic activity/Vol] 65 U/L 38 - 113 U/L [facility] ALT [Catalytic activity/Vol] 14 U/L 10 - 54 U/L [facility] AST [Catalytic activity/Vol] 13 U/L Low 14 - 40 U/L [facility] Bilirubin [Mass/Vol] 1.1 mg/dL 0.2 - 1.3 mg/dL [facility] Bilirubin.conjugat ed [Mass/Vol] 0.3 mg/dL High NINF - 0.3 mg/dL [facility] Interpretation and review of laboratory results Abnormal [facility] Protein [Mass/Vol] 7.1 g/dL 6.3 - 8.0 g/dL [facility] Hepatic function 2000 panelo n 11-03-2024 Albumin [Mass/Vol] 4.6 g/dL Normal 3.9-4.9 [facility] Comment on above: Order Comment: Speci men Type: BLOOD SPECIMENOrdering Facility: [facility] Address: [address] [place] [address] Performed By: #### 2 4325-3 ####[facility] HOSPITALLIA [id number] [place] [address] [place] ALP [Catalytic activity/Vol] 65 U/L Normal 38-113 [facility] Comment on above: Order Comment: Speci men Type: BLOOD SPECIMENOrdering Facility: [facility] Address: [address] [place] [address] Performed By: #### 2 4325-3 ####[facility] MILLWNCLIA [id number] [place] [address] [place] ALT [Catalytic activity/Vol] 14 U/L Normal 10-54 [facility] Comment on above: Order Comment: Speci men Type: BLOOD SPECIMENOrdering Facility: [facility] Address: [address] [place] [address] Performed By: #### 2 4325-3 ####[facility] MILLWNCLIA [id number] [place] [address] [place] AST [Catalytic activity/Vol] 13 U/L Low 14-40 [facility] Comment on above: Order Comment: Speci men Type: BLOOD SPECIMENOrdering Facility: [facility] Address: [address] [place], [place] [address] Performed By: #### 2 4325-3 ####[facility] WESTNCLIA [id number] [place] [address] [place] Bilirubin [Mass/Vol] 1.1 mg/dL Normal 0.2-1.3 [facility] Comment on above: Order Comment: Speci men Type: BLOOD SPECIMENOrdering Facility: [facility] Address: [address] [place] [address] Performed By: #### 2 4325-3 ####[facility] WESTNCLIA [id number] [place] [address] [place] Bilirubin.conjugat ed [Mass/Vol] 0.3 mg/dL High <0.3 [facility] Comment on above: Order Comment: Speci men Type: BLOOD SPECIMENOrdering Facility: [facility] Address: [address] [place] [address] Performed By: #### 2 4325-3 ####[facility] WESTNCLIA [id number] [place] [address] [place] Protein [Mass/Vol] 7.1 g/dL Normal 6.3-8.0 [facility] Comment on above: Order Comment: Speci men Type: BLOOD SPECIMENOrdering Facility: [facility] Address: [address] [place] [address] Performed By: #### 2 4325-3 ####[facility] WESTNCLIA [id number] [place] [address] [place] CNOVon 08-07-2024 CNOV Office Visit (INTMWS ) EKTA MYRICK ([id number]) 1965 M Date Time Provider Department 08/07/24 8:00 AM ARCHIE CASTORENA INTMWS During your visit today, we recorded the following information about you: Temperature Pulse Respiration Blood pressure 97.9 degrees 55/minute 16/minute 132/81 Weight Height 95.3 kg 1.854 m Archie Castorena MD 08/07/2024 8:51 AM Signed This note was created using [employer]. Subjective Patient presents with: Yearly Exam 9 month follow-up Ekta Myrick is a 59 year old male. He had chronic right abdominal pain that significantly improved when Dr. Stevenson treated him for rifaximin for 6 weeks for irritable bowel. He still had residual discomfort. We reviewed past blood pressure readings and he has stage 1 hypertension. He preferred to work on lifestyle changes first before starting medication. He had thickened deformed toenails and requested referral to podiatry. Other providers: Dr. Apollo Stevenson, gastroenterology; Dr. Sana Fermin, ophthalmology; Dr. Nayana Owen, urology; Dr. Anna Kc, psychiatry. Review of Systems Constitutional: Negative for fatigue, fever and unexpected weight change. HENT: Negative for congestion. Eyes: Negative for visual disturbance. Respiratory: Negative for cough and shortness of breath. Cardiovascular: Negative for chest pain, palpitations and leg swelling. Gastrointestinal: Positive for abdominal pain. Negative for blood in stool, constipation, diarrhea, nausea and vomiting. Genitourinary: Negative for difficulty urinating and dysuria. Musculoskeletal: Positive for back pain. Negative for arthralgias and joint swelling. Neurological: Negative for dizziness and headaches. PAST MEDICAL HISTORY Diagnosis Date Agoraphobia with panic disorder 07/21/2005 Dr. Kc Anxiety disorder in conditions classified elsewhere Cholelithiasis 11/03/2023 Chronic angle-closure glaucoma of both eyes 02/13/2017 Colon polyp 12/04/2013 Esophageal reflux GERD (gastroesophageal reflux disease) 02/08/2011 Glaucoma Hyperlipidemia 07/21/2005 Impaired fasting glucose 11/05/2013 Irritable bowel syndrome with diarrhea 02/26/2024 Special screening for malignant neoplasms, colon 11/15/2023 PAST SURGICAL HISTORY Procedure Laterality Date APPENDECTOMY 1979 CATARACT EXTRACTION W/ INTRAOCULAR LENS IMPLANT HX Bilateral 11/2018 w/ glaucoma procedure. COLONOSCOPY FLX DX W/COLLJ SPEC WHEN PFRMD 12/04/2013 Colonoscopy COLONOSCOPY SCREENING 11/15/2023 EXPLORATORY LAPAROTOMY CELIOTOMY W/WO BIOPSY SPX 1979 Laparotomy, exp ;Adhesions FAMILY HISTORY Problem Relation Age of Onset Breast Cancer Mother Alzheimer's Disease Mother Hypertension Mother Hypertension Father Diabetes Father Blood Disease Father recurrent DVT on chronic warfarin Arthritis Brother knee replaced No Known Problems Sister Colon Cancer Maternal Grandfather No Known Problems Brother Social History Tobacco Use Smoking status: Never Smokeless tobacco: Never Substance Use Topics Alcohol use: No Drug use: No ALLERGIES No Known Allergies Current Outpatient Medications Medication Sig bimatoprost (LUMIGAN) 0.03 % ophthalmic drops Use 1 Drop in both eyes daily at bedtime. atorvastatin (LIPITOR) 10 mg tablet Take 1 tablet by mouth daily at bedtime. For cholesterol. dorzolamide (TRUSOPT) 2 % ophthalmic solution Use 1 Drop in both eyes twice daily. ZOLOFT 100 MG TAB Take one(1) tablet daily. latanoprost (XALATAN) 0.005 % ophthalmic solution Use 1 Drop in both eyes daily at bedtime. TO AFFECTED EYE(S) (Patient not taking: Reported on 08/07/2024) No current facility-administered medications for this visit. Objective BP 132/81 (BP Site: Left Arm, BP Position: Sitting, BP Cuff Size: Large Adult) Pulse (!) 55 Temp 36.6 ?C (97.9 ?F) (Temporal) Resp 16 Ht 185.4 cm (6' 1) Wt 95.3 kg (210 lb 1.6 oz) BMI 27.72 kg/m? Physical Exam Constitutional: General: He is not in acute distress. Appearance: He is not ill-appearing. HENT: Head: Normocephalic. Eyes: Extraocular Movements: Extraocular movements intact. Conjunctiva/sclera: Conjunctivae normal. Cardiovascular: Rate and Rhythm: Normal rate and regular rhythm. Heart sounds: No murmur heard. No gallop. Pulmonary: Breath sounds: Normal breath sounds. Abdominal: Palpations: Abdomen is soft. There is no mass. Tenderness: There is no abdominal tenderness. Hernia: No hernia is present. Musculoskeletal: General: No tenderness. Normal range of motion. Right lower leg: No edema. Left lower leg: No edema. Lymphadenopathy: Cervical: No cervical adenopathy. Skin: Comments: Feet:Shoes and socks removed, normal distal pulses, and nails notable for Crumbly, Deformed, Hypertrophic, or Yellowish Neurological: General: No focal deficit present. Mental Status: He is alert. Gait: (more content not included)... Normal [facility] Celiac Disease Profileon ENDOMYSIAL IGA Negative Normal Negative [facility] Comment on above: Performed By: #### L 501.6710, L3410.2400 #### [facility] [address] [place], [place], [id number] IMMUNOGLOB A QN 298 mg/dL Normal 61-437 [facility] Comment on above: Result Comment: Perf ormed at: - [facility] [id number] Legal Counsel: Ritchie Lacey PhD, Phone: [phone] Performed By: #### L 501.6710, L3820.2400 #### [facility] [address] [place], [place], [id number] tTG IGA <2 Normal 0-3 [facility] Comment on above: Result Comment: Nega tive 0 - 3 Weak Positive 4 - 10 Positive >10 Tissue Transglutaminase (tTG) has been identified as the endomysial antigen. Studies have demonstr- ated that endomysial IgA antibodies have over 99% specificity for gluten sensitive enteropathy. Performed By: #### L 501.6710, L3410.2400 #### [facility] [address] [place], [place], [id number] CRPon 04-23-2024 C-REACTIVE PROT < 2.90 Normal 0.0-3.0 [facility] Comment on above: Result Comment: C-Re active Protein (CRP) provides useful information for the diagnosis, therapy and monitoring of inflammatory processes and associated diseases. For the evaluation of Relative Risk for Cardiovascular Disease, a High Sensitivity CRP (HSCRP) should be ordered. Performed By: #### L 501.6710, L3410.2400 #### [facility] [address] [place], [address] Colonoscopy Study observatio non 11-15-2023 [facility] CBC W Auto Differential pane l (Bld)on 03-14-2023 Basophils (Bld) [#/Vol] 0.04 10*3/uL <0.11 k/uL [facility] Basophils/100 WBC (Bld) 0.7 % [facility] Differential cell count method Nom (Bld) Auto [facility] Eosinophils (Bld) [#/Vol] 0.11 10*3/uL <0.46 k/uL [facility] Eosinophils/100 WBC (Bld) 2.0 % [facility] Erythrocyte distribution width (RBC) [Ratio] 12.2 % 11.5 - 15.0 % [facility] Hematocrit (Bld) [Volume fraction] 44.5 % 39.0 - 51.0 % [facility] Hemoglobin (Bld) [Mass/Vol] 15.2 g/dL 13.0 - 17.0 g/dL [facility] Immature granulocytes (Bld) [#/Vol] <0.10 k/uL [facility] Immature granulocytes/100 WBC (Bld) 0.2 % [facility] Lymphocytes (Bld) [#/Vol] 1.14 10*3/uL 1.00 - 4.00 k/uL [facility] Lymphocytes/100 WBC (Bld) 20.9 % [facility] MCH (RBC) [Entitic mass] 31.1 pg 26.0 - 34.0 pg [facility] MCHC (RBC) [Mass/Vol] 34.2 g/dL 30.5 - 36.0 g/dL [facility] MCV (RBC) [Entitic vol] 91.0 fL 80.0 - 100.0 fL [facility] Monocytes (Bld) [#/Vol] 0.39 10*3/uL <0.87 k/uL [facility] Monocytes/100 WBC (Bld) 7.1 % [facility] Neutrophils (Bld) [#/Vol] 3.77 10*3/uL 1.45 - 7.50 k/uL [facility] Neutrophils/100 WBC (Bld) 69.1 % [facility] Nucleated RBC (Bld) [#/Vol] <0.01 k/uL [facility] Nucleated RBC/100 WBC (Bld) [Ratio] 0.0 /100 WBC [facility] Platelet mean volume (Bld) [Entitic vol] 10.6 fL 9.0 - 12.7 fL [facility] Platelets (Bld) [#/Vol] 169 10*3/uL 150 - 400 k/uL [facility] RBC (Bld) [#/Vol] 4.89 10*6/uL 4.20 - 6.0 0 m/uL [facility] WBC (Bld) [#/Vol] 5.46 10*3/uL 3.70 - 11. 00 k/uL [facility] Comprehensive metabolic 2000 panelon 03-14-2023 Albumin [Mass/Vol] 4.6 g/dL 3.9 - 4.9 g/dL [facility] ALP [Catalytic activity/Vol] 61 U/L 38 - 113 U/L [facility] ALT [Catalytic activity/Vol] 18 U/L 10 - 54 U/L [facility] Anion gap [Moles/Vol] 10 mmol/L 9 - 18 mmol/L [facility] AST [Catalytic activity/Vol] 16 U/L 14 - 40 U/L [facility] Bilirubin [Mass/Vol] 1.0 mg/dL 0.2 - 1.3 mg/dL [facility] Calcium [Mass/Vol] 9.6 mg/dL 8.5 - 10. 2 mg/dL [facility] Chloride [Moles/Vol] 102 mmol/L 97 - 105 mmol/L [facility] CO2 [Moles/Vol] 27 mmol/L 22 - 30 mmol/L [facility] Creatinine [Mass/Vol] 0.95 mg/dL 0.73 - 1.22 mg/dL [facility] Estimated Glomerular Filtration Rate 92 mL/min/1.73m >=60 mL/min/1.73m [facility] Glucose [Mass/Vol] 109 mg/dL High 74 - 99 mg/dL [facility] Potassium [Moles/Vol] 4.3 mmol/L 3.7 - 5.1 mmol/L [facility] Protein [Mass/Vol] 7.3 g/dL 6.3 - 8.0 g/dL [facility] Sodium [Moles/Vol] 139 mmol/L 136 - 144 mmol/L [facility] Urea nitrogen [Mass/Vol] 15 mg/dL 9 - 24 mg/dL [facility] No Panel Informationon 03-14 [facility] UA DIP, URINE (POC)on 2022 BILIRUBIN UA (POCT) Negative Negative [facility] CLARITY UA (POCT) Clear [facility] COLOR UA (POCT) Yellow [facility] GLUCOSE UA (POCT) Negative Negative mg/dL [facility] HEMOGLOBIN/BLOOD UA (POCT) Moderate Abnormal Negative [facility] KETONE UA (POCT) Negative Negative mg/dL [facility] LEUKOCYTES UA (POCT) Negative Negative [facility] NITRITE UA (POCT) Negative Negative [facility] PH UA (POCT) 5.0 4.5 - 8.0 [facility] Protein Ql (U) Negative Negative mg/dL [facility] SPECIFIC GRAVITY UA (POCT) >=1.030 1.005 - 1.030 [facility] UROBILINOGEN UA (POCT) 0.2 E.U./dL Normal E.U./dL [facility] US KIDNEY/BLADDERon 09-01-20 [facility] Vital Signs Date Time Vital Sign Value Performing Clinician Moira cloud 02-12-2025 11:01-0400 Diastolic blood pressure 84 mm[Hg] Kayode Morse MD Work Phone: [facility] 02-12-2025 11:01-0400 Heart rate 55 /min Kayode Morse MD Work Phone: [facility] 02-12-2025 11:01-0400 Respiratory rate 16 /min Kayode Morse MD Work Phone: [facility] 02-12-2025 11:01-0400 SaO2% (BldA) [Mass fraction] 97 % Kayode Morse MD Work Phone: [facility] 02-12-2025 11:01-0400 Systolic blood pressure 133 mm[Hg] Kayode Morse MD Work Phone: [facility] 02-12-2025 09:28-0400 Body temperature 97.2 [degF] Kayode Morse MD Work Phone: [facility] 02-03-2025 08:28-0400 Body height 185.4 cm Queenie Odalis 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 Work Phone: [facility] 02-03-2025 08:28-0400 Body mass index (BMI) [Ratio] 27.73 kg/m2 Queenie Odalis 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 Work Phone: [facility] 02-03-2025 08:28-0400 Body temperature 97.11 [degF] Queenie Odalis 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 Work Phone: [facility] 02-03-2025 08:28-0400 Body weight 95.35 kg Queenie Odalis 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 Work Phone: [facility] 02-03-2025 08:28-0400 Diastolic blood pressure 86 mm[Hg] Queenie Odalis 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 Work Phone: [facility] 02-03-2025 08:28-0400 Heart rate 68 /min Queenie Odalis 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 Work Phone: [facility] 02-03-2025 08:28-0400 SaO2% (BldA) [Mass fraction] 97 % Queenie Odalis 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 Work Phone: [facility] 02-03-2025 08:28-0400 Systolic blood pressure 140 mm[Hg] Queenie Odalis 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 Work Phone: [facility] 12-15-2024 18:54-0400 Diastolic blood pressure 77 mm[Hg] Archie Castorena MD Work Phone: [facility] 12-15-2024 18:54-0400 Heart rate 71 /min Archie Castorena MD Work Phone: [facility] 12-15-2024 18:54-0400 Systolic blood pressure 131 mm[Hg] Archie Castorena MD Work Phone: [facility] 12-15-2024 18:48-0400 Body mass index (BMI) [Ratio] 27.63 kg/m2 Archie Castorena MD Work Phone: [facility] 12-15-2024 18:48-0400 Body temperature 98.6 [degF] Archie Castorena MD Work Phone: [facility] 12-15-2024 18:48-0400 Body weight 95 kg Archie Castorena MD Work Phone: [facility] 12-15-2024 18:48-0400 Respiratory rate 1 /min Archie Castorena MD Work Phone: [facility] 08-07-2024 08:13-0400 Diastolic blood pressure 81 mm[Hg] Archie Castorena MD Work Phone: [facility] 08-07-2024 08:13-0400 Heart rate 55 /min Archie Castorena MD Work Phone: [facility] 08-07-2024 08:13-0400 Systolic blood pressure 132 mm[Hg] Archie Castorena MD Work Phone: [facility] 08-07-2024 08:03-0400 Body height 185.4 cm Archie Castorena MD Work Phone: [facility] 08-07-2024 08:03-0400 Body mass index (BMI) [Ratio] 27.72 kg/m2 Archie Castorena MD Work Phone: [facility] 08-07-2024 08:03-0400 Body temperature 97.9 [degF] Archie Castorena MD Work Phone: [facility] 08-07-2024 08:03-0400 Body weight 95.3 kg Archie Castorena MD Work Phone: [facility] 08-07-2024 08:03-0400 Respiratory rate 16 /min Archie Castorena MD Work Phone: [facility] 02-26-2024 11:47-0400 Body mass index (BMI) [Ratio] 28.21 kg/m2 India Katarzyna 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 Work Phone: [facility] 02-26-2024 11:47-0400 Body weight 94.35 kg India Katarzyna 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 Work Phone: [facility] 02-26-2024 11:47-0400 Diastolic blood pressure 86 mm[Hg] India Katarzyna 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 Work Phone: [facility] 02-26-2024 11:47-0400 Heart rate 66 /min India Katarzyna 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 Work Phone: [facility] 02-26-2024 11:47-0400 Respiratory rate 18 /min India Katarzyna 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 Work Phone: [facility] 02-26-2024 11:47-0400 SaO2% (BldA) [Mass fraction] 93 % India Katarzyna 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 Work Phone: [facility] 02-26-2024 11:47-0400 Systolic blood pressure 134 mm[Hg] India Katarzyna 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 Work Phone: [facility] 11-15-2023 09:46-0500 Diastolic blood pressure 75 mm[Hg] Kayode Morse MD Work Phone: [facility] 11-15-2023 09:46-0500 Heart rate 60 /min Kayode Morse MD Work Phone: [facility] 11-15-2023 09:46-0500 Respiratory rate 16 /min Kayode Morse MD Work Phone: [facility] 11-15-2023 09:46-0500 SaO2% (BldA) [Mass fraction] 97 % Kayode Morse MD Work Phone: [facility] 11-15-2023 09:46-0500 Systolic blood pressure 133 mm[Hg] Kayode Morse MD Work Phone: [facility] 11-15-2023 08:09-0500 Body temperature 97.59 [degF] Kayode Morse MD Work Phone: [facility] 03-14-2023 09:12-0400 Body weight 97.52 kg India Older 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 Work Phone: [facility] 03-14-2023 09:12-0400 Diastolic blood pressure 102 mm[Hg] India Older 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 Work Phone: [facility] 03-14-2023 09:12-0400 Heart rate 64 /min India Older 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 Work Phone: [facility] 03-14-2023 09:12-0400 Respiratory rate 16 /min India Older 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 Work Phone: [facility] 03-14-2023 09:12-0400 Systolic blood pressure 162 mm[Hg] India Older 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 Work Phone: [facility] 08-11-2022 08:25-0400 Diastolic blood pressure 82 mm[Hg] Archie Castorena MD Work Phone: [facility] 08-11-2022 08:25-0400 Systolic blood pressure 124 mm[Hg] Archie Castorena MD Work Phone: [facility] Encounters Encounter Date Encounter Type Care Provider Facility Start: 08-04-2025 End: 08-04-2025 ambulatory ARCHIE CASTORENA Facility:[facility] Start: 08-01-2025 End: 08-01-2025 ambulatory ARCHIE CASTORENA Facility:[facility] Start: 02-19-2025 End: 02-19-2025 Patient encounter procedure Queenie Jacobo 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 Work Phone: General Surgery Comment on above: Gastroesophageal ref lux disease with esophagitis without hemorrhage (Primary Dx) Start: 02-19-2025 End: 02-19-2025 ambulatory QUEENIE JACOBO Facility:[facility] Start: 02-13-2025 End: 04-15-2025 Follow-up encounter Queenie Jacobo 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 Work Phone: General Surgery Start: 02-12-2025 ambulatory KAYODE MORSE Facili ty:[facility] Start: 02-12-2025 End: 02-12-2025 Subsequent hospital visit by physician Kayode Morse MD Work Phone: Ambulatory Surgery Comment on above: LUQ abdominal pain [ R10.12] Start: 02-03-2025 End: 04-09-2025 Telephone encounter Queenie Martínezlisa NEGRON.CLINICAL APPEALS AUDITOR Work Phone: General Surgery Comment on above: 02-12-[address] Morse Start: 02-03-2025 End: 02-03-2025 Patient encounter procedure Queenie Martínezir 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 Work Phone: General Surgery Comment on above: Nausea (Primary Dx); LUQ abdominal pain; Heart burn Start: 02-03-2025 End: 02-03-2025 ambulatory QUEENIE JACOBO Facility:[facility] Start: 01-30-2025 End: 01-30-2025 ambulatory ARCHIE CASOTRENA Facility:[facility] Start: 01-05-2025 End: 01-06-2025 Follow-up encounter Archie Castorena MD Work Phone: [facility] [place] Comment on above: Results (ct scan) Start: 12-31-2024 End: 03-02-2025 Follow-up encounter Archie Castorena MD Work Phone: [facility] [place] Start: 12-30-2024 End: 12-30-2024 ambulatory ARCHIE CASTORENA Facility:[facility] Start: 12-30-2024 End: 12-30-2024 Subsequent hospital visit by physician Krissy [facility] ([facility]) Work Phone: Cat Scan Comment on above: Right lower quadrant abdominal pain [R10.31] Start: 12-15-2024 End: 12-15-2024 ambulatory ARCHIE CASTORENA Facility:[facility] Start: 12-15-2024 End: 12-15-2024 Patient encounter procedure Archie Castorena MD Work Phone: [facility] [place] Comment on above: Right lower quadrant abdominal pain (Primary Dx); Irritable bowel syndrome with diarrhea; Other hyperlipidemia Start: 11-04-2024 End: 11-08-2024 Telephone encounter Ryan Testaaliyah Work Phone: Podiatry Comment on above: Results Start: 11-03-2024 End: 11-03-2024 ambulatory RYAN ROSA Facility:[facility] Start: 11-03-2024 End: 11-03-2024 Patient encounter procedure Ryan Beltranaaliyah Work Phone: Podiatry Comment on above: Dermatophytosis of n ail Start: 08-07-2024 End: 08-07-2024 ambulatory ARCHIE CASTORENA Facility:[facility] Start: 08-07-2024 End: 08-07-2024 Patient encounter procedure Archie Castorena MD Work Phone: [facility] [place] Comment on above: Routine physical exa mination (Primary Dx); Irritable bowel syndrome with diarrhea; Screening for depression; Primary hypertension; Other hyperlipidemia; Impaired fasting glucose; Dermatophytosis of nail; Chronic angle-closure glaucoma of both eyes, unspecified glaucoma stage Start: 08-07-2024 End: 08-07-2024 Physical examination Archie Castorena MD Work Phone: [facility] Start: 08-02-2024 End: 08-04-2024 Telephone encounter Archie Castorena MD Work Phone: [facility] Medicine [place] Comment on above: Orders Start: 04-23-2024 End: 04-23-2024 ambulatory Archie Castorena Facility:[facility] Start: 02-26-2024 End: 02-26-2024 Patient encounter procedure India Colón APRN.CLINICAL APPEALS AUDITOR Work Phone: [facility] [place] Comment on above: Chronic abdominal pa in (Primary Dx); Diarrhea, unspecified type Start: 11-15-2023 End: 11-15-2023 Subsequent hospital visit by physician Kayode Morse MD Work Phone: Ambulatory Surgery Comment on above: Special screening fo r malignant neoplasms, colon [Z12.11] Start: 03-14-2023 End: 03-14-2023 Subsequent hospital visit by physician [facility] (I-Stat) Work Phone: Cat Scan Comment on above: Right flank pain [R1 0.9] Start: 03-14-2023 End: 03-14-2023 Patient encounter procedure India Jimenez APRN.CLINICAL APPEALS AUDITOR Work Phone: [facility] [place] Comment on above: Right flank pain (Pr imary Dx); Asymptomatic microscopic hematuria; Elevated PSA Start: 09-04-2022 Telephone encounter Archie bustos MD Work Phone: [facility] [place] Comment on above: Results Start: 09-01-2022 End: 09-01-2022 Subsequent hospital visit by physician [facility] Work Phone: Radiology Comment on above: Hematuria, unspecifi ed type [R31.9] Start: 08-28-2022 Telephone encounter Archie bustos MD Work Phone: [facility] [place] Comment on above: Results Start: 08-11-2022 End: 08-11-2022 Patient encounter procedure Archei Castorena MD Work Phone: [facility] [place] Comment on above: Routine physical exa mination (Primary Dx); Elevated PSA; Other hyperlipidemia; Impaired fasting glucose; Varicose veins of both lower extremities with pain Start: 08-11-2022 End: 08-11-2022 Physical examination Archie Castorena MD Work Phone: [facility] [place] Start: 08-05-2022 Physical examination Archie Castorena MD Work Phone: [facility] [place] Start: 08-05-2022 Telephone encounter Archie bustos MD Work Phone: [facility] [place] Comment on above: Lab Orders Procedures Date Procedure Procedure Detail Performing Clinician Start: 02-12-2025 Esophagogastroduodenoscopy transoral diagnostic Queenie Jacobo 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 Work Phone: Start: 08-07-2024 Adult depression screening assessment Archie Castorena MD Work Phone: Start: 08-05-2024 Lipid 1996 panel - Serum or Plasma Julien Castorena MD Work Phone: Start: 11-15-2023 Colonoscopy flx dx w/collj spec when pfrmd Archie Castorena MD Work Phone: Start: 11-15-2023 Colonoscopy Kayode Morse MD Work Phone: Start: 03-14-2023 Ct abdomen & pelvis w/o contrast material India Older 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 Work Phone: Start: 03-14-2023 Urnls dip stick/tablet rgnt auto w/o microscopy India Older 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 Work Phone: Start: 09-01-2022 Us retroperitoneal real time w/image complete India Older 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 Work Phone: Start: 08-08-2022 Lipid 1996 panel - Serum or Plasma Us 2 Work Phone: Start: 06-02-2019 Colonoscopy Archie Castorena MD Work Phone: Plan of Treatment Date Care Activity Detail Author Start: 11-15-2033 Screening for malign ant neoplasm of colon [facility] Start: 08-05-2029 Lipid panel Lipid Screening [facility] Start: 08-05-2029 Prostate specific an tigen measurement Prostate Cancer Screening Discussion [facility] Start: 11-15-2028 Screening for malign ant neoplasm of colon [facility] Start: 03-14-2028 Prostate Cancer Scre ening Discussion Prostate Cancer Screening Discussion [facility] Start: 03-14-2028 Prostate specific an tigen measurement Prostate Cancer Screening Discussion [facility] Start: 12-31-2027 Diabetes Screening Diabetes Screenin [facility] Start: 08-08-2027 Lipid 1996 panel - S emma or Plasma Lipid Screening [facility] Start: 08-08-2027 Lipid panel Lipid Screening [facility] Start: 08-08-2027 LIPID SCREEN LIPID SCREEN [facility] Start: 08-08-2027 PROSTATE CANCER SCRE ENING DISCUSSION PROSTATE CANCER SCREENING DISCUSSION [facility] Start: 08-05-2027 Diabetes Screening Diabetes Screenin g [facility] Start: 10-19-2026 Diabetes Screening Diabetes Screenin g [facility] Start: 06-18-2026 LIPID SCREEN LIPID SCREEN [facility] Start: 03-14-2026 DIABETES SCREEN DIABETES SCREEN [facility] Start: 03-14-2026 Diabetes Screening Diabetes Screenin g [facility] Start: 08-08-2025 DIABETES SCREEN DIABETES SCREEN [facility] Start: 08-07-2025 Covid-19 Vaccine () Covid-19 Vaccine () [facility] Comment on above: Postponed from 06/08 (Declined at this time) Start: 08-07-2025 Depression Screening Depression Scre ening [facility] Start: 08-04-2025 End: 08-04-2025 Patient encounter procedure 08/04/2025 9:20 AM EDT Office Visit [facility] [place] [address] [place] [id number] Archie Castorena MD [address] [place] [address] yearly- 6 month follow up- labs [facility] [place] Comment on above: yearly- 6 month foll ow up- labs Start: 06-08-2025 Influenza vaccination Influenza Vacc ine (#1) [facility] Start: 02-27-2025 PROSTATE CANCER SCRE ENING DISCUSSION PROSTATE CANCER SCREENING DISCUSSION [facility] Start: 02-19-2025 End: 02-19-2025 Patient encounter procedure 02/19/2025 3:30 PM EDT Office Visit General Surgery [address] [place] [address] Queenie Jacobo APRN.CLINICAL APPEALS AUDITOR [address] [place] [address] 02-12 EGD follow up / declined VV General Surgery Comment on above: 02-12 EGD follow up / declined VV Start: 02-12-2025 End: 02-12-2025 Patient encounter procedure 02/12/2025 11:45 AM EDT Appointment Ambulatory Surgery [address] [place] [phone] Kayode Morse MD [address] [place] [address] Ambulatory Surgery Start: 02-05-2025 End: 05-07-2025 Hepatic function 1999 panel - Serum or Plasma HEPATIC FUNCTION PNL Lab Routine Dermatophytosis of nail Expected: 02/05/2025, Expires: 05/07/2025 [facility] Comment on above: Expected: 02/05/2025 , Expires: 05/07/2025 Start: 01-30-2025 End: 01-30-2025 Patient encounter procedure 01/30/2025 9:00 AM EDT Office Visit Internal Medicine [facility] [address] [place] [address] Archie Castorena MD [address] [place] [address] 6 month follow-up [facility] [place] Comment on above: 6 month follow-up Start: 12-30-2024 End: 12-30-2024 Patient encounter procedure Cat Scan Comment on above: Right lower quadrant abdominal pain [R10.31] Start: 12-15-2024 End: 03-16-2025 CBC panel - Blood by Automated count COMPLETE BLOOD COUNT Lab Routine Right lower quadrant abdominal pain Expected: 12/15/2024, Expires: 03/16/2025 [facility] Work Phone: Comment on above: Expected: 12/15/2024 , Expires: 03/16/2025 Start: 12-15-2024 End: 03-16-2025 Comprehensive metabolic 2000 panel - Serum or Plasma COMPREHENSIVE METABOLIC PANEL Lab Routine Right lower quadrant abdominal pain Expected: 12/15/2024, Expires: 03/16/2025 [facility] Comment on above: Expected: 12/15/2024 , Expires: 03/16/2025 Start: 12-06-2024 End: 03-07-2025 Hepatic function 1999 panel - Serum or Plasma HEPATIC FUNCTION PNL Lab Routine Dermatophytosis of nail Expected: 12/06/2024, Expires: 03/07/2025 [facility] Work Phone: Comment on above: Expected: 12/06/2024 , Expires: 03/07/2025 Start: 11-10-2024 Urine microalbumin profile [facility] Start: 10-20-2024 End: 10-20-2024 Patient encounter procedure 10/20/2024 10:00 AM EST Office Visit Podiatry [address] [place], [place] [phone] Ryan Rosa [address] [place] [address] Dermatophytosis of nail [B35.1] Podiatry Comment on above: Dermatophytosis of n ail [B35.1] Start: 10-19-2024 Covid-19 Vaccine () Covid-19 Vaccine () [facility] Comment on above: Postponed from 06/08 (Declined at this time) Start: 08-07-2024 End: 08-07-2024 Patient encounter procedure 08/07/2024 8:00 AM EDT Office Visit Internal Medicine [place] [address] [facility] [place], [place] [phone] Archie Castorena MD [address] [facility] [place], [place] [id number] Yearly w/9 month follow-up [facility] [place] Comment on above: Yearly w/9 month fol low-up Start: 08-04-2024 End: 11-03-2024 Basic metabolic 2000 panel - Serum or Plasma BASIC METABOLIC PANEL Lab Routine Impaired fasting glucose Expected: 08/04/2024, Expires: 11/03/2024 [facility] Comment on above: Expected: 08/04/2024 , Expires: 11/03/2024 Start: 08-04-2024 End: 11-03-2024 CBC panel - Blood by Automated count COMPLETE BLOOD COUNT Lab Routine Impaired fasting glucose Expected: 08/04/2024, Expires: 11/03/2024 [facility] Comment on above: Expected: 08/04/2024 , Expires: 11/03/2024 Start: 08-04-2024 End: 11-03-2024 Lipid 1996 panel - Serum or Plasma LIPID PANEL BASIC Lab Routine Other hyperlipidemia Expected: 08/04/2024, Expires: 11/03/2024 [facility] Comment on above: Expected: 08/04/2024 , Expires: 11/03/2024 Start: 08-04-2024 End: 11-03-2024 Prostate Specific Ag Free [Mass/volume] in Serum or Plasma PROSTATE SPECIFIC ANTIGEN, FREE Lab Routine Elevated PSA Expected: 08/04/2024, Expires: 11/03/2024 [facility] Work Phone: Comment on above: Expected: 08/04/2024 , Expires: 11/03/2024 Start: 06-18-2024 DIABETES SCREEN DIABETES SCREEN [facility] Start: 06-08-2024 Covid-19 Vaccine ( season) Covid-19 Vaccine () [facility] Start: 06-08-2024 Influenza vaccination Influenza Vacc ine (#1) [facility] Start: 06-02-2024 Colonoscopy COLONOSCOPY [facility] Start: 06-02-2024 COLORECTAL CANCER SCREENING COLORECTAL CANCER SCREENING [facility] Start: 10-08-2023 Behavioral Health Screening Behavioral Health Screening [facility] Start: 08-11-2023 COVID-19 VACCINE (3 - Booster for Pfizer series) COVID-19 VACCINE (3 - Booster for Pfizer series) [facility] Comment on above: Postponed from 04/18 (Declined at this time) Start: 06-08-2023 Covid-19 Vaccine () Covid-19 Vaccine () [facility] Start: 06-08-2023 Influenza vaccination Influenza Vacc ine (#1) [facility] Start: 03-14-2023 End: 05-14-2023 Bacteria identified in Urine by Culture [facility] Work Phone: Comment on above: Expected: 03/14/2023 , Expires: 05/14/2023 Start: 03-14-2023 End: 05-14-2023 Prostate specific Ag [Mass/volume] in Serum or Plasma [facility] Work Phone: Comment on above: Expected: 03/14/2023 , Expires: 05/14/2023 Start: 03-14-2023 End: 05-14-2023 Urinalysis complete panel - Urine [facility] Work Phone: Comment on above: Expected: 03/14/2023 , Expires: 05/14/2023 Start: 2023 RSV Vaccine (1 - 1-d ose 60+ series) RSV Vaccine (1 - 1-dose 60+ series) [facility] Start: 10-08-2022 DEPRESSION ASSESSMENT DEPRESSION ASS ESSMENT [facility] Start: 08-11-2022 End: 10-11-2022 Urinalysis complete panel - Urine [facility] Work Phone: Comment on above: Expected: 08/11/2022 , Expires: 10/11/2022 Start: 08-07-2022 End: 10-07-2022 CBC panel - Blood by Automated count CBC Lab Routine Routine physical examination Expected: 08/07/2022, Expires: 10/07/2022 [facility] Work Phone: Comment on above: Expected: 08/07/2022 , Expires: 10/07/2022 Start: 08-07-2022 End: 10-07-2022 Comprehensive metabolic 2000 panel - Serum or Plasma COMP METABOLIC PANEL Lab Routine Routine physical examination Other hyperlipidemia Expected: 08/07/2022, Expires: 10/07/2022 [facility] Work Phone: Comment on above: Expected: 08/07/2022 , Expires: 10/07/2022 Start: 08-07-2022 End: 10-07-2022 Hemoglobin A1c in Blood HGB A1C Lab Routine Routine physical examination Impaired fasting glucose Expected: 08/07/2022, Expires: 10/07/2022 [facility] Work Phone: Comment on above: Expected: 08/07/2022 , Expires: 10/07/2022 Start: 08-07-2022 End: 10-07-2022 Lipid 1996 panel - Serum or Plasma LIPID PANEL BASIC Lab Routine Routine physical examination Other hyperlipidemia Expected: 08/07/2022, Expires: 10/07/2022 [facility] Work Phone: Comment on above: Expected: 08/07/2022 , Expires: 10/07/2022 Start: 08-07-2022 End: 10-07-2022 Prostate specific Ag [Mass/volume] in Serum or Plasma PSA/PROSTSPECAG DIAG Lab Routine Elevated PSA Expected: 08/07/2022, Expires: 10/07/2022 [facility] Work Phone: Comment on above: Expected: 08/07/2022 , Expires: 10/07/2022 Start: 06-08-2022 Influenza vaccination INFLUENZA (#1) [facility] Start: 10-08-2021 DEPRESSION ASSESSMENT DEPRESSION ASS ESSMENT [facility] Start: 04-18-2021 COVID-19 VACCINE (3 - Booster for Pfizer series) COVID-19 VACCINE (3 - Booster for Pfizer series) [facility] Start: 2013 Pneumococcal Vaccine : 50+ (1 of 1 - PCV) Pneumococcal Vaccine: 50+ (1 of 1 - PCV) [facility] Start: 01-25-2008 COLOGUARD (FIT-DNA) COLOGUARD (FIT-D NA) [facility] Start: 01-25-[address] COLONOGRAPHY [facility] Start: 01-25-2008 FECAL OCCULT BLOOD FECAL OCCULT BLOO D [facility] Start: 01-25-2008 Screening for malign ant neoplasm of colon [facility] Start: 01-25-2008 SIGMOIDOSCOPY SIGMOIDOSCOPY [facility] Start: 1981 Depression Screening Depression Scre ening [facility] End: 01-14-2026 CT Abdomen and Pelvis W contrast IV CT ABD/PEL W IVCON Radiology Routine Right lower quadrant abdominal pain 1 Occurrences starting 12/15/2024 until 01/14/2026 [facility] Comment on above: 1 Occurrences starti ng 12/15/2024 until 01/14/2026 CT Abdomen and Pelvi s W contrast IV CT ABD/PEL W IVCON Radiology Routine Right lower quadrant abdominal pain 12/30/2024 9:58 AM EDT [facility] Work Phone: End: 02-03-2026 EGD DIAGNOSTIC EGD DIAGNOSTIC Endoscopy Routine LUQ abdominal pain Nausea Heart burn 1 Occurrences starting 02/03/2025 until 02/03/2026 [facility] Work Phone: Comment on above: 1 Occurrences starti ng 02/03/2025 until 02/03/2026 Tissue Pathology bio psy report [facility] Work Phone: Comment on above: Release Upon Orderin g for 1 Occurrences starting 02/12/2025, 1 completed End: 09-27-2023 US KIDNEY/BLADDER US KIDNEY/BLADDER Radiology Routine Hematuria, unspecified type 1 Occurrences starting 08/28/2022 until 09/27/2023 [facility] Work Phone: Comment on above: 1 Occurrences starti ng 08/28/2022 until 09/27/2023 [facility] Immun[facility] Immunization Date Immunization Notes Care Provider [facility] 07-07-2024 influenza virus vaccine, unspecified formulation Archie Castorena MD Work Phone: [facility] 11-07-2023 respiratory syncytia l virus (RSV) vaccine, bivalent (ABRYSVO) Kayode Morse MD Work Phone: [facility] 07-05-2023 influenza virus vaccine, unspecified formulation Kayode Morse MD Work Phone: [facility] 07-04-2022 influenza, seasonal, injectable Archie Castorena MD Work Phone: [facility] Work Phone: 07-04-2022 influenza virus vaccine, unspecified formulation [facility] Work Phone: [facility] 10-11-2020 zoster vaccine recombinant Archie Castorena MD Work Phone: [facility] Work Phone: 07-19-2020 zoster vaccine recombinant Archie Castorena MD Work Phone: [facility] Work Phone: 06-23-2020 influenza, injectabl e, quadrivalent, contains preservative Archie Castorena MD Work Phone: [facility] Work Phone: 06-08-2017 influenza, seasonal, injectable Archie Castorena MD Work Phone: [facility] Work Phone: 11-10-2014 tetanus toxoid, redu kayla diphtheria toxoid, and acellular pertussis vaccine, adsorbed Archie Castorena MD Work Phone: [facility] 07-08-2014 influenza, seasonal, injectable Archie Castorena MD Work Phone: [facility] Work Phone: 07-19-2012 influenza virus vaccine, unspecified formulation Archie Castorena MD Work Phone: [facility] Work Phone: 07-20-2004 tetanus and diphther ia toxoids, adsorbed, preservative free, for adult use (2 Lf of tetanus toxoid and 2 Lf of diphtheria toxoid) Archie Castorena MD Work Phone: [facility] Work Phone: Payers Date Payer Category Payer Self-pay 2019 Private Health Insurance [employer] PPO [id number] 2019 Unknown [id number] 2019 Unknown [id number] Unknown [id number] Social History Date Type Detail Facility Start: 11-05-2013 End: 03-14-2023 Tobacco smoking status NHIS Never smoked tobacco [facility] Work Phone: Start: 11-05-2013 End: 03-14-2023 Tobacco use and exposure Smokeless tobacco non-user [facility] Work Phone: Start: 09-23-2021 End: 02-13-2025 Alcohol intake Current non-drinker of alcohol (finding) [facility] Start: 1965 Sex Assigned At Not on file C [facility] Start: 08-11-2022 History SDOH Alcohol Frequency 1 [facility] Start: 08-11-2022 History SDOH Alcohol Std Drinks 0 [facility] Start: 08-11-2022 History SDOH Physica l Activity MPS 3 [facility] Start: 08-01-2022 End: 08-11-2022 Exposure to SARS-CoV-2 (event) Not sure [facility] Start: 08-11-2022 End: 03-14-2023 [facility] Work Phone: Start: 08-11-2022 End: 03-14-2023 Alcohol Use Disorder Identification Test - Consumption [AUDIT-C] [facility] Work Phone: How often to you hav e a drink containing alcohol? Never [facility] Work Phone: How many standard dr inks containing alcohol do you have on a typical day? Patient does not drink [facility] Work Phone: Do you feel stress - tense, restless, nervous, or anxious, or unable to sleep at night because your mind is troubled all the time - these days [OSQ] Not at all [facility] Work Phone: Functional Status Date Assessment Result Facility 11-10-2014 Are you deaf, or do you have serious difficulty hearing No 11/10/2014 9:01 AM Niki Vega LPN No [facility] 11-10-2014 Are you blind, or do you have serious difficulty seeing, even when wearing glasses No 11/10/2014 9:01 AM Niki Vega LPN No [facility] 11-10-2014 Do you have serious difficulty walking or climbing stairs No 11/10/2014 9:01 AM Niki Vega LPN No [facility] 11-10-2014 Do you have difficul ty dressing or bathing No 11/10/2014 9:01 AM Niki Vega LPN No [facility] 11-10-2014 Because of a physica l, mental, or emotional condition, do you have difficulty doing errands alone such as visiting a physician's office or shopping No 11/10/2014 9:01 AM Niki Vega LPN No [facility] Mental Status Date Assessment Result Facility 11-10-2014 Because of a physica l, mental, or emotional condition, do you have serious difficulty concentrating, remembering, or making decisions No 11/10/2014 9:01 AM Niki Vega LPN No [facility] Clinical Notes 07-19-2012 to 08-04-2025 Queenie Jacobo APRN.CLINICAL APPEALS AUDITOR - 02/19/2025 3:30 [facility] Gal[facility] RN - 02/12/2025 10:54 AM EDTPKayode fortune MD - 02/12/2025 10:15 AM EDTPatient Instructions Note Date & Type Note Facility 08-04-2025 Note HNO ID: [id number] Author: ARCHIE CASTORENA MD Service: ? Author Type: Physician Type: Progress Notes Filed: 08/04/2025 11:12 Note Text: Subjective Ekta Myrick is a 60 year old male. Patient presents with: Physical F/U 6 months He was doing well. GI symptoms essentially resolved and were controlled. Lipids were controlled. His medication list was updated. He reported an incident at work when he became acutely weak, sweaty and lightheaded. He had no chest pains, palpitations, or dyspnea. He continued working and symptoms resolved shortly. He had varicose veins and swelling of the left leg controlled with compression stockings. He had been noting mild burning and pain of the left plantar feet after prolonged standing, and non specific numbness of the left lower leg and foot. Review of Systems Constitutional: Negative for appetite change, fatigue and fever. HENT: Negative for congestion and sore throat. Eyes: Negative for visual disturbance. Respiratory: Negative for cough and shortness of breath. Cardiovascular: Positive for leg swelling (left leg). Negative for chest pain and palpitations. Gastrointestinal: Negative for abdominal pain, constipation, diarrhea, nausea and vomiting. Genitourinary: Negative for difficulty urinating and dysuria. Musculoskeletal: Negative for arthralgias and back pain. Neurological: Positive for numbness (left foot). Negative for headaches. PAST MEDICAL HISTORY Diagnosis Date Agoraphobia with panic disorder 07/21/2005 Dr. Kc Anxiety disorder in conditions classified elsewhere Cholelithiasis 11/03/2023 Chronic angle-closure glaucoma of both eyes 02/13/2017 Colon polyp 12/04/2013 Esophageal reflux GERD (gastroesophageal reflux disease) 02/08/2011 Glaucoma Heart burn 02/12/2025 Hyperlipidemia 07/21/2005 Impaired fasting glucose 11/05/2013 Irritable bowel syndrome with diarrhea 02/26/2024 Neuropathy - (NOS) 06/23/2020 Varicose veins of left lower extremity with pain 06/23/2020 PAST SURGICAL HISTORY Procedure Laterality Date APPENDECTOMY 1979 CATARACT EXTRACTION W/ INTRAOCULAR LENS IMPLANT HX Bilateral 11/2018 w/ glaucoma procedure. COLONOSCOPY FLX DX W/COLLJ SPEC WHEN PFRMD 12/04/2013 Colonoscopy COLONOSCOPY SCREENING 11/15/2023 EGD 02/12/2025 EXPLORATORY LAPAROTOMY CELIOTOMY W/WO BIOPSY SPX 1979 Laparotomy, exp ;Adhesions FAMILY HISTORY Problem Relation Age of Onset Breast Cancer Mother Alzheimer's Disease Mother Hypertension Mother Hypertension Father Diabetes Father Blood Disease Father recurrent DVT on chronic warfarin Arthritis Brother knee replaced No Known Problems Sister Colon Cancer Maternal Grandfather No Known Problems Brother ALLERGIES No Known Allergies Current Outpatient Medications Medication Sig atorvastatin (LIPITOR) 10 mg tablet Take 1 tablet by mouth daily at bedtime. For cholesterol. bimatoprost (LUMIGAN) 0.03 % ophthalmic drops Use 1 Drop in both eyes daily at bedtime. dorzolamide (TRUSOPT) 2 % ophthalmic solution Use 1 Drop in both eyes twice daily. omeprazole (PRILOSEC) 20 mg capsule Take 1 capsule by mouth once daily. sertraline (ZOLOFT) 100 mg tablet Take 2 tablets by mouth once daily. No current facility-administered medications for this visit. Objective BP 132/80 (BP Site: Left Arm, BP Position: Sitting, BP Cuff Size: Large Adult) Pulse 60 Ht 184.8 cm (6' 0.75) Wt 97.7 kg (215 lb 6.2 oz) BMI 28.61 kg/m? Physical Exam Constitutional: General: He is not in acute distress. Appearance: He is not ill-appearing. HENT: Head: Normocephalic. Nose: No congestion or rhinorrhea. Mouth/Throat: Mouth: Mucous membranes are moist. Pharynx: Oropharynx is clear. Eyes: Extraocular Movements: Extraocular movements intact. Conjunctiva/sclera: Conjunctivae normal. Cardiovascular: Rate and Rhythm: Normal rate and regular rhythm. Heart sounds: No murmur heard. No gallop. Pulmonary: Breath sounds: Normal breath sounds. Abdominal: Palpations: Abdomen is soft. Tenderness: There is no abdominal tenderness. Musculoskeletal: General: No swelling. Cervical back: Neck supple. Right lower leg: No edema. Left lower leg: No edema. Lymphadenopathy: Cervical: No cervical adenopathy. Skin: Comments: Varicose veins medium size, left lower leg. No tenderness. No cords. Neurological: General: No focal deficit present. Mental Status: He is alert. Sensory: Sensory deficit (subjective decrease of PP and FT left foot and distal leg.) present. Motor: No weakness. Gait: Gait normal. Psychiatric: Mood and Affect: Mood normal. Latest Ref Rng 08/01/2025 Protein, Total 6.3 - 8.0 g/dL 7.1 Albumin 3.9 - 4.9 g/dL 4.4 Calcium 8.5 - 10.2 mg/dL 9.1 Bilirubin, Total 0.2 - 1.3 mg/dL 1.6 (H) Alkaline Phosphatase 38 - 113 U/L 54 AST 14 - 40 U/L 21 ALT 10 - 54 U/L 17 Glucose 74 - 99 mg/dL 113 (H) BUN 9 - 24 mg/dL 18 Crea (more content not included)... [facility] 02-19-2025 History of Presen t illness Narrative FOLLOW UP VISIT - ENDOSCOPY Ekta Myrick 1965 [id number] REFERRING PHYSICIAN: Kayode Morse III [address] [facility] [address] Ekta Myrick is a patient I am following for LUQ pain, nausea, heart burn. Dr. Morse performed upper endoscopy on 02/12/2025. The patient was found to have Impression: - Z-line regular, 41 cm from the incisors. Biopsied. - Gastritis, characterized by erythema. Biopsied. - Normal examined duodenum. Biopsied. Pathology demonstrated: FINAL DIAGNOSIS A. Duodenum, biopsy: - Duodenal mucosa with no diagnostic abnormality. B. Stomach, antrum, biopsy: - Gastric antral and oxyntic mucosa with no diagnostic abnormality. C. Esophagus, distal, biopsy: - Mildly active esophagitis, consistent with gastroesophageal reflux injury. D. Esophagus, mid, biopsy: - Squamous mucosa with no diagnostic abnormality The patient notes he is still getting some mild LUQ pain with certain foods -notes he drinks a lot of orange juice and has recently started mixing it 1/2 with water to help with the pain VITALS: There were no vitals taken for this visit. General: patient is alert, cooperative, pleasant and in no acute distress On examination, the abdomen is benign. Assessment ASSESSMENT/PLAN: 1. Gastroesophageal reflux disease with esophagitis without hemorrhage - ICD9: 530.81, 530.10, ICD10: K21.00 - Discussed lifestyle modifications including losing weight, limiting caffeine, no meals three hours before sleep, and head of bed elevation - Begin treatment with Prilosec 20 mg every day- let me know if there is no improvement in 1 month and can increase to 40mg The operative findings and pathology report were reviewed with the patient, and the patient has had the opportunity to ask questions and have questions answered. If the patient notes any problems or changes in bowel function, the patient should contact me immediately. Otherwise I recommend follow up endoscopy as symptoms dictate. HM updated. Discussed treatment plan and patient voices understanding. Patient's questions answered appropriately. Medications and potential side effects were discussed and patient voices understanding. Return to the office as scheduled or as needed for worsening/no improvement. Queenie Jacobo APRN.JONO documented in this encounter [facility] 02-19-2025 Note HNO ID: [id number] Author: QUEENIE JACOBO APRN.CNP Service: ? Author Type: Nurse Practitioner Type: Progress Notes Filed: 02/19/2025 15:39 Note Text: FOLLOW UP VISIT - ENDOSCOPY Ekta Myrick 1965 [id number] REFERRING PHYSICIAN: Kayode Morse III [address] [facility] [address] Ekta Myrick is a patient I am following for LUQ pain, nausea, heart burn. Dr. Morse performed upper endoscopy on 02/12/2025. The patient was found to have Impression: - Z-line regular, 41 cm from the incisors. Biopsied. - Gastritis, characterized by erythema. Biopsied. - Normal examined duodenum. Biopsied. Pathology demonstrated: FINAL DIAGNOSIS A. Duodenum, biopsy: - Duodenal mucosa with no diagnostic abnormality. B. Stomach, antrum, biopsy: - Gastric antral and oxyntic mucosa with no diagnostic abnormality. C. Esophagus, distal, biopsy: - Mildly active esophagitis, consistent with gastroesophageal reflux injury. D. Esophagus, mid, biopsy: - Squamous mucosa with no diagnostic abnormality The patient notes he is still getting some mild LUQ pain with certain foods -notes he drinks a lot of orange juice and has recently started mixing it 1/2 with water to help with the pain VITALS: There were no vitals taken for this visit. General: patient is alert, cooperative, pleasant and in no acute distress On examination, the abdomen is benign. Assessment ASSESSMENT/PLAN: 1. Gastroesophageal reflux disease with esophagitis without hemorrhage - ICD9: 530.81, 530.10, ICD10: K21.00 - Discussed lifestyle modifications including losing weight, limiting caffeine, no meals three hours before sleep, and head of bed elevation - Begin treatment with Prilosec 20 mg every day- let me know if there is no improvement in 1 month and can increase to 40mg The operative findings and pathology report were reviewed with the patient, and the patient has had the opportunity to ask questions and have questions answered. If the patient notes any problems or changes in bowel function, the patient should contact me immediately. Otherwise I recommend follow up endoscopy as symptoms dictate. HM updated. Discussed treatment plan and patient voices understanding. Patient's questions answered appropriately. Medications and potential side effects were discussed and patient voices understanding. Return to the office as scheduled or as needed for worsening/no improvement. Queenie Jacobo APRN.CLINICAL APPEALS AUDITOR [facility] 02-12-2025 Note Formatting of this n ote might be different from the original. The patient received a copy of EGD discharge instructions that contain information for how to contact the physician who performed the procedure and when to seek medical care. [facility] 02-12-2025 Miscellaneous Notes The patient received a copy of EGD discharge instructions that contain information for how to contact the physician who performed the procedure and when to seek medical care. documented in this encounter [facility] 02-12-2025 History and physical note HISTORY AND PHYSICAL Ekta Myrick : 1965 REFERRING PHYSICIAN: Archie Castorena [address] [facility] [address] CHIEF COMPLAINT: Patient presents with: Consult: LUQ pain, EGD consult HPI: Ekta is a 60 year old male referred for endoscopy. Ekta notes LUQ pain x 6 mos. Ekta was evaluated by Dr. Stevenson who treated him for IBS with rifaximin but did not think he needed an EGD. Ekta notes abdominal pain. - LUQ pain x 6 mos- feels likes a pressure - notices a gurgling after eating when sitting upright in his recliner - does not radiate - notes nausea throughout the day & in the morning - denies vomiting - denies unintentional weight loss Ekta notes heartburn. -spicy greasy foods -with gatorade Ekta denies dysphagia. Ekta denies a history of ulcers/ peptic ulcer disease. Ekta also notes that his LLQ looks like it sticks out further than the other side -does not cause pain -had right inguinal hernia repair years ago -believes he has a hernia there also Notes symptoms of IBS -treated by Dr. Stevenson in the past -normal colonoscopy 11/2023 CT ABD/PELV W/ IV 12/30/24 IMPRESSION: No acute findings or significant pathology. Status post appendectomy. Colonic diverticulosis; no acute pericolonic inflammatory changes. Prostatomegaly. Ekta has undergone prior endoscopy. NO EGD but colonoscopy in 2023 in [facility]. Sedation:Fentanyl 100 micrograms IV, Midazolam 5 mg IV, Diphenhydramine 50 mg IV CURRENT MEDICATIONS Current Outpatient Medications Medication Sig atorvastatin (LIPITOR) 10 mg tablet Take 1 tablet by mouth daily at bedtime. For cholesterol. terbinafine HCl (LAMISIL) 250 mg tablet Take 1 tablet by mouth once daily. bimatoprost (LUMIGAN) 0.03 % ophthalmic drops Use 1 Drop in both eyes daily at bedtime. dorzolamide (TRUSOPT) 2 % ophthalmic solution Use 1 Drop in both eyes twice daily. ZOLOFT 100 MG TAB Take one(1) tablet daily. No current facility-administered medications for this visit. ALLERGIES: Patient has no known allergies. PAST MEDICAL HISTORY PAST MEDICAL HISTORY Diagnosis Date Agoraphobia with panic disorder 07/21/2005 Dr. Kc Anxiety disorder in conditions classified elsewhere Cholelithiasis 11/03/2023 Chronic angle-closure glaucoma of both eyes 02/13/2017 Colon polyp 12/04/2013 Esophageal reflux GERD (gastroesophageal reflux disease) 02/08/2011 Glaucoma Hyperlipidemia 07/21/2005 Impaired fasting glucose 11/05/2013 Irritable bowel syndrome with diarrhea 02/26/2024 PAST SURGICAL HISTORY PAST SURGICAL HISTORY Procedure Laterality Date APPENDECTOMY 1979 CATARACT EXTRACTION W/ INTRAOCULAR LENS IMPLANT HX Bilateral 11/2018 w/ glaucoma procedure. COLONOSCOPY FLX DX W/COLLJ SPEC WHEN PFRMD 12/04/2013 Colonoscopy COLONOSCOPY SCREENING 11/15/2023 EXPLORATORY LAPAROTOMY CELIOTOMY W/WO BIOPSY SPX 1979 Laparotomy, exp ;Adhesions FAMILY HISTORY FAMILY HISTORY Problem Relation Age of Onset Breast Cancer Mother Alzheimer's Disease Mother Hypertension Mother Hypertension Father Diabetes Father Blood Disease Father recurrent DVT on chronic warfarin Arthritis Brother knee replaced No Known Problems Sister Colon Cancer Maternal Grandfather No Known Problems Brother SOCIAL HISTORY Social History Tobacco Use Smoking status: Never Smokeless tobacco: Never Vaping Use Vaping status: Never Used Substance Use Topics Alcohol use: No Drug use: No PHYSICAL EXAMINATION: General: The patient is 60 year old, male well nourished, well hydrated in no acute distress. The patient is oriented to time, place, and person. VITALS: Blood pressure 140/86, pulse 68, temperature 36.2 C (97.1 F), height 185.4 cm (6' 1), weight 95.3 kg (210 lb 3.2 oz), SpO2 97%. Body mass index is 27.73 kg/m . HEENT: Normal cephalic, ataumatic, pupils are equally round, sclera are anicteric, mucous membranes are moist, oropharynx is clear. Neck has no masses, asymmetry or lymphadenopathy. Respiratory: Clear to auscultation and percussion. Normal respiratory excursion and pattern. Cardiac: Examination is regular rate and rhythm. Normal S1/S2 Abdominal exam: Soft, nontender, with no palpable masses. No hepatosplenomegaly. No palpable hernias. Extremities: no clubbing, cyanosis or edema. No adenopathy. LABORATORY VALUES: As Noted RADIOLOGIC STUDIES: As Noted Assessment IMPRESSION: LUQ pain, nausea, heart burn PLAN: I have reviewed my findings with the surgeon. Will plan for upper endoscopy. We discussed the risks and benefits of the planned endoscopy in terms understandable to the patient. I have informed the patient that complications can occur including failure to complete the endoscopy and perforation. Ekta had the opportunity to ask questions concerning the planned endoscopy. Ekta freely consents to surgery. I have explained to the patient the difference between IV conscious sedation and MAC anesthesia - and I have offered either, according to the patient's wishes. I have explained that with IV conscious sedation there is no anesthesia provider available and therefore there is a limitation of the amount of IV medications that can be given and that the patient may wake up in the middle of the procedure and/or experience pain/discomfort during the procedure. Further discussion was done and the patient was given the opportunity to ask questions and all questions were answered. Ekta chooses IV conscious sedation. Ekta was counseled that if there are changes in his/her medical condition, to let the office know if surgery should proceed. If there are changes in patient's medical condition from time of this encounter to the day of the procedure that preclude anesthesia, patient may have procedure cancelled for patient's safety. Diagnoses: (R11.0) Nausea (primary encounter diagnosis) (R10.12) LUQ abdominal pain (R12) Heart burn Consultation requested by Dr. Castorena for an opinion regarding LUQ pain. My final recommendations will be communicated back to the requesting physician by way of shared Medical record or letter to requesting physician via [place] mail. Portions of this documentation were copied and pasted from previous office visit notes in order to provide a cohesive continuity of the history. The note has been reviewed and edited and updated as necessary. Queenie Jacobo APRN.CLINICAL APPEALS AUDITOR UPDATED HISTORY AND PHYSICAL EXAMINATION SERVICE DATE: 02/12/2025 SERVICE TIME: 10:03 AM PHYSICAL EXAM MUST BE COMPLETED ON ADMISSION The History and Physical (completed in the past 30 days) has been reviewed and the patient has been examined. The contents accurately reflect the patient's condition with the following additions or revisions since the H&P was completed. Examination indicates no changes. This H&P can be found in the attached. SIGNATURE: Kayode Morse III, MD PATIENT NAME: Ekta Myrick DATE: February 12, 2025 TIME: 10:03 AM [facility] 02-12-2025 History and physical note HISTORY AND PHYSICAL Ekta Myrick : 1965 REFERRING PHYSICIAN: Archie Castorena [address] [facility] [address] CHIEF COMPLAINT: Patient presents with: Consult: LUQ pain, EGD consult HPI: Ekta is a 60 year old male referred for endoscopy. Ekta notes LUQ pain x 6 mos. Ekta was evaluated by Dr. Stevenson who treated him for IBS with rifaximin but did not think he needed an EGD. Ekta notes abdominal pain. - LUQ pain x 6 mos- feels likes a pressure - notices a gurgling after eating when sitting upright in his recliner - does not radiate - notes nausea throughout the day & in the morning - denies vomiting - denies unintentional weight loss Ekta notes heartburn. -spicy greasy foods -with gatorade Ekta denies dysphagia. Ekta denies a history of ulcers/ peptic ulcer disease. Ekta also notes that his LLQ looks like it sticks out further than the other side -does not cause pain -had right inguinal hernia repair years ago -believes he has a hernia there also Notes symptoms of IBS -treated by Dr. Stevenson in the past -normal colonoscopy 11/2023 CT ABD/PELV W/ IV 12/30/24 IMPRESSION: No acute findings or significant pathology. Status post appendectomy. Colonic diverticulosis; no acute pericolonic inflammatory changes. Prostatomegaly. Ekta has undergone prior endoscopy. NO EGD but colonoscopy in 2023 in [facility]. Sedation:Fentanyl 100 micrograms IV, Midazolam 5 mg IV, Diphenhydramine 50 mg IV CURRENT MEDICATIONS Current Outpatient Medications Medication Sig atorvastatin (LIPITOR) 10 mg tablet Take 1 tablet by mouth daily at bedtime. For cholesterol. terbinafine HCl (LAMISIL) 250 mg tablet Take 1 tablet by mouth once daily. bimatoprost (LUMIGAN) 0.03 % ophthalmic drops Use 1 Drop in both eyes daily at bedtime. dorzolamide (TRUSOPT) 2 % ophthalmic solution Use 1 Drop in both eyes twice daily. ZOLOFT 100 MG TAB Take one(1) tablet daily. No current facility-administered medications for this visit. ALLERGIES: Patient has no known allergies. PAST MEDICAL HISTORY PAST MEDICAL HISTORY Diagnosis Date Agoraphobia with panic disorder 07/21/2005 Dr. Kc Anxiety disorder in conditions classified elsewhere Cholelithiasis 11/03/2023 Chronic angle-closure glaucoma of both eyes 02/13/2017 Colon polyp 12/04/2013 Esophageal reflux GERD (gastroesophageal reflux disease) 02/08/2011 Glaucoma Hyperlipidemia 07/21/2005 Impaired fasting glucose 11/05/2013 Irritable bowel syndrome with diarrhea 02/26/2024 PAST SURGICAL HISTORY PAST SURGICAL HISTORY Procedure Laterality Date APPENDECTOMY 1979 CATARACT EXTRACTION W/ INTRAOCULAR LENS IMPLANT HX Bilateral 11/2018 w/ glaucoma procedure. COLONOSCOPY FLX DX W/COLLJ SPEC WHEN PFRMD 12/04/2013 Colonoscopy COLONOSCOPY SCREENING 11/15/2023 EXPLORATORY LAPAROTOMY CELIOTOMY W/WO BIOPSY SPX 1979 Laparotomy, exp ;Adhesions FAMILY HISTORY FAMILY HISTORY Problem Relation Age of Onset Breast Cancer Mother Alzheimer's Disease Mother Hypertension Mother Hypertension Father Diabetes Father Blood Disease Father recurrent DVT on chronic warfarin Arthritis Brother knee replaced No Known Problems Sister Colon Cancer Maternal Grandfather No Known Problems Brother SOCIAL HISTORY Social History Tobacco Use Smoking status: Never Smokeless tobacco: Never Vaping Use Vaping status: Never Used Substance Use Topics Alcohol use: No Drug use: No PHYSICAL EXAMINATION: General: The patient is 60 year old, male well nourished, well hydrated in no acute distress. The patient is oriented to time, place, and person. VITALS: Blood pressure 140/86, pulse 68, temperature 36.2 C (97.1 F), height 185.4 cm (6' 1), weight 95.3 kg (210 lb 3.2 oz), SpO2 97%. Body mass index is 27.73 kg/m . HEENT: Normal cephalic, ataumatic, pupils are equally round, sclera are anicteric, mucous membranes are moist, oropharynx is clear. Neck has no masses, asymmetry or lymphadenopathy. Respiratory: Clear to auscultation and percussion. Normal respiratory excursion and pattern. Cardiac: Examination is regular rate and rhythm. Normal S1/S2 Abdominal exam: Soft, nontender, with no palpable masses. No hepatosplenomegaly. No palpable hernias. Extremities: no clubbing, cyanosis or edema. No adenopathy. LABORATORY VALUES: As Noted RADIOLOGIC STUDIES: As Noted Assessment IMPRESSION: LUQ pain, nausea, heart burn PLAN: I have reviewed my findings with the surgeon. Will plan for upper endoscopy. We discussed the risks and benefits of the planned endoscopy in terms understandable to the patient. I have informed the patient that complications can occur including failure to complete the endoscopy and perforation. Ekta had the opportunity to ask questions concerning the planned endoscopy. Ekta freely consents to surgery. I have explained to the patient the difference between IV conscious sedation and MAC anesthesia - and I have offered either, according to the patient's wishes. I have explained that with IV conscious sedation there is no anesthesia provider available and therefore there is a limitation of the amount of IV medications that can be given and that the patient may wake up in the middle of the procedure and/or experience pain/discomfort during the procedure. Further discussion was done and the patient was given the opportunity to ask questions and all questions were answered. Ekta chooses IV conscious sedation. Ekta was counseled that if there are changes in his/her medical condition, to let the office know if surgery should proceed. If there are changes in patient's medical condition from time of this encounter to the day of the procedure that preclude anesthesia, patient may have procedure cancelled for patient's safety. Diagnoses: (R11.0) Nausea (primary encounter diagnosis) (R10.12) LUQ abdominal pain (R12) Heart burn Consultation requested by Dr. Castorena for an opinion regarding LUQ pain. My final recommendations will be communicated back to the requesting physician by way of shared Medical record or letter to requesting physician via [place] mail. Portions of this documentation were copied and pasted from previous office visit notes in order to provide a cohesive continuity of the history. The note has been reviewed and edited and updated as necessary. Queenie Jacobo APRN.CLINICAL APPEALS AUDITOR UPDATED HISTORY AND PHYSICAL EXAMINATION SERVICE DATE: 02/12/2025 SERVICE TIME: 10:03 AM PHYSICAL EXAM MUST BE COMPLETED ON ADMISSION The History and Physical (completed in the past 30 days) has been reviewed and the patient has been examined. The contents accurately reflect the patient's condition with the following additions or revisions since the H&P was completed. Examination indicates no changes. This H&P can be found in the attached. SIGNATURE: Kayode Morse III, MD PATIENT NAME: Ekta Myrick DATE: February 12, 2025 TIME: 10:03 AM documented in this encounter [facility] 02-03-2025 Telephone encounter Note 02-12-2025 EGD Channing Morse [facility] 02-03-2025 Miscellaneous Notes 02-12-2025 EGD Channing Morse documented in this encounter [facility] 02-03-2025 History of Presen t illness Narrative HISTORY AND PHYSICAL Ekta Myrick : 1965 REFERRING PHYSICIAN: Archie Castorena [address] [place] [address] CHIEF COMPLAINT: Patient presents with: Consult: LUQ pain, EGD consult HPI: Ekta is a 60 year old male referred for endoscopy. Ekta notes LUQ pain x 6 mos. Ekta was evaluated by Dr. Stevenson who treated him for IBS with rifaximin but did not think he needed an EGD. Ekta notes abdominal pain. - LUQ pain x 6 mos- feels likes a pressure - notices a gurgling after eating when sitting upright in his recliner - does not radiate - notes nausea throughout the day & in the morning - denies vomiting - denies unintentional weight loss Ekta notes heartburn. -spicy greasy foods -with gatorade Ekta denies dysphagia. Ekta denies a history of ulcers/ peptic ulcer disease. Ekta also notes that his LLQ looks like it sticks out further than the other side -does not cause pain -had right inguinal hernia repair years ago -believes he has a hernia there also Notes symptoms of IBS -treated by Dr. Stevenson in the past -normal colonoscopy 11/2023 CT ABD/PELV W/ IV 12/30/24 IMPRESSION: No acute findings or significant pathology. Status post appendectomy. Colonic diverticulosis; no acute pericolonic inflammatory changes. Prostatomegaly. Ekta has undergone prior endoscopy. NO EGD but colonoscopy in 2023 in [facility]. Sedation:Fentanyl 100 micrograms IV, Midazolam 5 mg IV, Diphenhydramine 50 mg IV Current Outpatient Medications Medication Sig atorvastatin (LIPITOR) 10 mg tablet Take 1 tablet by mouth daily at bedtime. For cholesterol. terbinafine HCl (LAMISIL) 250 mg tablet Take 1 tablet by mouth once daily. bimatoprost (LUMIGAN) 0.03 % ophthalmic drops Use 1 Drop in both eyes daily at bedtime. dorzolamide (TRUSOPT) 2 % ophthalmic solution Use 1 Drop in both eyes twice daily. ZOLOFT 100 MG TAB Take one(1) tablet daily. No current facility-administered medications for this visit. ALLERGIES: Patient has no known allergies. PAST MEDICAL HISTORY Diagnosis Date Agoraphobia with panic disorder 07/21/2005 Dr. Kc Anxiety disorder in conditions classified elsewhere Cholelithiasis 11/03/2023 Chronic angle-closure glaucoma of both eyes 02/13/2017 Colon polyp 12/04/2013 Esophageal reflux GERD (gastroesophageal reflux disease) 02/08/2011 Glaucoma Hyperlipidemia 07/21/2005 Impaired fasting glucose 11/05/2013 Irritable bowel syndrome with diarrhea 02/26/2024 PAST SURGICAL HISTORY Procedure Laterality Date APPENDECTOMY 1979 CATARACT EXTRACTION W/ INTRAOCULAR LENS IMPLANT HX Bilateral 11/2018 w/ glaucoma procedure. COLONOSCOPY FLX DX W/COLLJ SPEC WHEN PFRMD 12/04/2013 Colonoscopy COLONOSCOPY SCREENING 11/15/2023 EXPLORATORY LAPAROTOMY CELIOTOMY W/WO BIOPSY SPX 1979 Laparotomy, exp ;Adhesions FAMILY HISTORY Problem Relation Age of Onset Breast Cancer Mother Alzheimer's Disease Mother Hypertension Mother Hypertension Father Diabetes Father Blood Disease Father recurrent DVT on chronic warfarin Arthritis Brother knee replaced No Known Problems Sister Colon Cancer Maternal Grandfather No Known Problems Brother Social History Tobacco Use Smoking status: Never Smokeless tobacco: Never Vaping Use Vaping status: Never Used Substance Use Topics Alcohol use: No Drug use: No PHYSICAL EXAMINATION: General: The patient is 60 year old, male well nourished, well hydrated in no acute distress. The patient is oriented to time, place, and person. VITALS: Blood pressure 140/86, pulse 68, temperature 36.2 C (97.1 F), height 185.4 cm (6' 1), weight 95.3 kg (210 lb 3.2 oz), SpO2 97%. Body mass index is 27.73 kg/m . HEENT: Normal cephalic, ataumatic, pupils are equally round, sclera are anicteric, mucous membranes are moist, oropharynx is clear. Neck has no masses, asymmetry or lymphadenopathy. Respiratory: Clear to auscultation and percussion. Normal respiratory excursion and pattern. Cardiac: Examination is regular rate and rhythm. Normal S1/S2 Abdominal exam: Soft, nontender, with no palpable masses. No hepatosplenomegaly. No palpable hernias. Extremities: no clubbing, cyanosis or edema. No adenopathy. LABORATORY VALUES: As Noted RADIOLOGIC STUDIES: As Noted Assessment IMPRESSION: LUQ pain, nausea, heart burn PLAN: I have reviewed my findings with the surgeon. Will plan for upper endoscopy. We discussed the risks and benefits of the planned endoscopy in terms understandable to the patient. I have informed the patient that complications can occur including failure to complete the endoscopy and perforation. Ekta had the opportunity to ask questions concerning the planned endoscopy. Ekta freely consents to surgery. I have explained to the patient the difference between IV conscious sedation and MAC anesthesia - and I have offered either, according to the patient's wishes. I have explained that with IV conscious sedation there is no anesthesia provider available and therefore there is a limitation of the amount of IV medications that can be given and that the patient may wake up in the middle of the procedure and/or experience pain/discomfort during the procedure. Further discussion was done and the patient was given the opportunity to ask questions and all questions were answered. Ekta chooses IV conscious sedation. Ekta was counseled that if there are changes in his/her medical condition, to let the office know if surgery should proceed. If there are changes in patient's medical condition from time of this encounter to the day of the procedure that preclude anesthesia, patient may have procedure cancelled for patient's safety. Diagnoses: (R11.0) Nausea (primary encounter diagnosis) (R10.12) LUQ abdominal pain (R12) Heart burn Consultation requested by Dr. Castorena for an opinion regarding LUQ pain. My final recommendations will be communicated back to the requesting physician by way of shared Medical record or letter to requesting physician via [place] mail. Portions of this documentation were copied and pasted from previous office visit notes in order to provide a cohesive continuity of the history. The note has been reviewed and edited and updated as necessary. Queenie Jacobo APRN.JONO documented in this encounter [facility] 02-03-2025 Note HNO ID: [id number] Author: QUEENIE JACOBO APRN.JONO Service: ? Author Type: Nurse Practitioner Type: Progress Notes Filed: 02/03/2025 09:58 Note Text: HISTORY AND PHYSICAL Ekta Myrick : 1965 REFERRING PHYSICIAN: Archie Castorena [address] [facility] [address] CHIEF COMPLAINT: Patient presents with: Consult: LUQ pain, EGD consult HPI: Ekta is a 60 year old male referred for endoscopy. Ekta notes LUQ pain x 6 mos. Ekta was evaluated by Dr. Stevenson who treated him for IBS with rifaximin but did not think he needed an EGD. Ekta notes abdominal pain. - LUQ pain x 6 mos- feels likes a pressure - notices a gurgling after eating when sitting upright in his recliner - does not radiate - notes nausea throughout the day AND in the morning - denies vomiting - denies unintentional weight loss Ekta notes heartburn. -spicy greasy foods -with gatorade Ekta denies dysphagia. Ekta denies a history of ulcers/ peptic ulcer disease. Ekta also notes that his LLQ looks like it sticks out further than the other side -does not cause pain -had right inguinal hernia repair years ago -believes he has a hernia there also Notes symptoms of IBS -treated by Dr. Stevenson in the past -normal colonoscopy 11/2023 CT ABD/PELV W/ IV 12/30/24 IMPRESSION: No acute findings or significant pathology. Status post appendectomy. Colonic diverticulosis; no acute pericolonic inflammatory changes. Prostatomegaly. Ekta has undergone prior endoscopy. NO EGD but colonoscopy in 2023 in [facility]. Sedation:Fentanyl 100 micrograms IV, Midazolam 5 mg IV, Diphenhydramine 50 mg IV Current Outpatient Medications Medication Sig atorvastatin (LIPITOR) 10 mg tablet Take 1 tablet by mouth daily at bedtime. For cholesterol. terbinafine HCl (LAMISIL) 250 mg tablet Take 1 tablet by mouth once daily. bimatoprost (LUMIGAN) 0.03 % ophthalmic drops Use 1 Drop in both eyes daily at bedtime. dorzolamide (TRUSOPT) 2 % ophthalmic solution Use 1 Drop in both eyes twice daily. ZOLOFT 100 MG TAB Take one(1) tablet daily. No current facility-administered medications for this visit. ALLERGIES: Patient has no known allergies. PAST MEDICAL HISTORY Diagnosis Date Agoraphobia with panic disorder 07/21/2005 Dr. Kc Anxiety disorder in conditions classified elsewhere Cholelithiasis 11/03/2023 Chronic angle-closure glaucoma of both eyes 02/13/2017 Colon polyp 12/04/2013 Esophageal reflux GERD (gastroesophageal reflux disease) 02/08/2011 Glaucoma Hyperlipidemia 07/21/2005 Impaired fasting glucose 11/05/2013 Irritable bowel syndrome with diarrhea 02/26/2024 PAST SURGICAL HISTORY Procedure Laterality Date APPENDECTOMY 1979 CATARACT EXTRACTION W/ INTRAOCULAR LENS IMPLANT HX Bilateral 11/2018 w/ glaucoma procedure. COLONOSCOPY FLX DX W/COLLJ SPEC WHEN PFRMD 12/04/2013 Colonoscopy COLONOSCOPY SCREENING 11/15/2023 EXPLORATORY LAPAROTOMY CELIOTOMY W/WO BIOPSY SPX 1980 Laparotomy, exp ;Adhesions FAMILY HISTORY Problem Relation Age of Onset Breast Cancer Mother Alzheimer's Disease Mother Hypertension Mother Hypertension Father Diabetes Father Blood Disease Father recurrent DVT on chronic warfarin Arthritis Brother knee replaced No Known Problems Sister Colon Cancer Maternal Grandfather No Known Problems Brother Social History Tobacco Use Smoking status: Never Smokeless tobacco: Never Vaping Use Vaping status: Never Used Substance Use Topics Alcohol use: No Drug use: No PHYSICAL EXAMINATION: General: The patient is 60 year old, male well nourished, well hydrated in no acute distress. The patient is oriented to time, place, and person. VITALS: Blood pressure 140/86, pulse 68, temperature 36.2 ?C (97.1 ?F), height 185.4 cm (6' 1), weight 95.3 kg (210 lb 3.2 oz), SpO2 97%. Body mass index is 27.73 kg/m?. HEENT: Normal cephalic, ataumatic, pupils are equally round, sclera are anicteric, mucous membranes are moist, oropharynx is clear. Neck has no masses, asymmetry or lymphadenopathy. Respiratory: Clear to auscultation and percussion. Normal respiratory excursion and pattern. Cardiac: Examination is regular rate and rhythm. Normal S1/S2 Abdominal exam: Soft, nontender, with no palpable masses. No hepatosplenomegaly. No palpable hernias. Extremities: no clubbing, cyanosis or edema. No adenopathy. LABORATORY VALUES: As Noted RADIOLOGIC STUDIES: As Noted Assessment IMPRESSION: LUQ pain, nausea, heart burn PLAN: I have reviewed my findings with the surgeon. Will plan for upper endoscopy. We discussed the risks and benefits of the planned endoscopy in terms understandable to the patient. I have informed the patient that complications can occur including failure to complete the endoscopy and perforation. Ekta had the opportunity to ask questions concerning the planned endoscopy. Ekta freely consents to surgery. I have explain (more content not included)... [facility] 01-30-2025 Note HNO ID: [id number] Author: ARCHIE CASTORENA MD Service: ? Author Type: Physician Type: Progress Notes Filed: 01/30/2025 09:37 Note Text: This note was created using [employer]. Subjective Ekta Myrick is a 60 year old male. He was seen last month for RLQ pain which improved. Abdominal pain now of concern is located LUQ without radiation present for 6 months and is constant. Pain is described as pressure and mild in severity. He notices this with bowel movements and when bending over. He was interested in an upper endoscopy and a 2nd opinion as Dr. Stevenson did not recommend EGD. He was treated for IBS with rifaximin but preferred further evaluation rather than another course of rifaximin. His CT of the abdomen and pelvis last month was essentially normal. Review of Systems Constitutional: Negative for fatigue and fever. Respiratory: Negative for shortness of breath. Cardiovascular: Negative for chest pain. Gastrointestinal: Negative for blood in stool, constipation, diarrhea, nausea and vomiting. Genitourinary: Negative for difficulty urinating and dysuria. ACTIVE PROBLEM LIST Agoraphobia With Panic Disorder Hyperlipidemia Impaired Fasting Glucose Chronic Angle-Closure Glaucoma of Both Eyes Elevated Psa Varicose Veins of Both Lower Extremities With Pain Neuropathy - (Nos) Bph Without Obstruction/Lower Urinary Tract Symptoms Irritable Bowel Syndrome With Diarrhea PAST SURGICAL HISTORY Procedure Laterality Date APPENDECTOMY 1979 CATARACT EXTRACTION W/ INTRAOCULAR LENS IMPLANT HX Bilateral 11/2018 w/ glaucoma procedure. COLONOSCOPY FLX DX W/COLLJ SPEC WHEN PFRMD 12/04/2013 Colonoscopy COLONOSCOPY SCREENING 11/15/2023 EXPLORATORY LAPAROTOMY CELIOTOMY W/WO BIOPSY SPX 1979 Laparotomy, exp ;Adhesions Social History Tobacco Use Smoking status: Never Smokeless tobacco: Never Substance Use Topics Alcohol use: No Drug use: No Current Outpatient Medications Medication Sig atorvastatin (LIPITOR) 10 mg tablet Take 1 tablet by mouth daily at bedtime. For cholesterol. terbinafine HCl (LAMISIL) 250 mg tablet Take 1 tablet by mouth once daily. bimatoprost (LUMIGAN) 0.03 % ophthalmic drops Use 1 Drop in both eyes daily at bedtime. dorzolamide (TRUSOPT) 2 % ophthalmic solution Use 1 Drop in both eyes twice daily. ZOLOFT 100 MG TAB Take one(1) tablet daily. latanoprost (XALATAN) 0.005 % ophthalmic solution Use 1 Drop in both eyes daily at bedtime. TO AFFECTED EYE(S) (Patient not taking: Reported on 08/07/2024) No current facility-administered medications for this visit. Objective BP 122/70 (BP Site: Left Arm, BP Position: Sitting, BP Cuff Size: Large Adult) Pulse 64 Temp 36.6 ?C (97.8 ?F) (Temporal) Resp 14 Ht 185.4 cm (6' 1) Wt 95.3 kg (210 lb 1.6 oz) SpO2 97% BMI 27.72 kg/m? Physical Exam Constitutional: General: He is not in acute distress. Appearance: He is not ill-appearing. Cardiovascular: Heart sounds: Normal heart sounds. Pulmonary: Breath sounds: Normal breath sounds. Abdominal: Palpations: Abdomen is soft. There is no mass. Tenderness: There is no abdominal tenderness. Musculoskeletal: Right lower leg: No edema. Left lower leg: No edema. Neurological: Mental Status: He is alert. Test results pertinent to today's visit were reviewed and discussed with the patient. Assessment and Plan 1. LUQ abdominal pain - ICD9: 789.02, ICD10: R10.12 (primary diagnosis) Etiology unclear. Interested in EGD. Differential Diagnosis includes IBS - CONSULT TO GENERAL SURGERY 2. Irritable bowel syndrome with diarrhea - ICD9: 564.1, ICD10: K58.0 - He declined to go back to Dr. Stevenson. He declined another round of rifaximin. 3. Other hyperlipidemia - ICD9: 272.4, ICD10: E78.49 - COMPREHENSIVE METABOLIC PANEL - LIPID PANEL, FASTING 4. Impaired fasting glucose - ICD9: 790.21, ICD10: R73.01 - HEMOGLOBIN A1C 5. Elevated PSA - ICD9: 790.93, ICD10: R97.20 - EXECUTIVE PANEL PSA, FREE AND TOTAL 6. BPH without obstruction/lower urinary tract symptoms - ICD9: 600.00, ICD10: N40.0 Asymptomatic. Archie Castorena MD [facility] 01-06-2025 Telephone encounter Note Pt returned the call and notified of CT results and Dr. Castorena's message and information. [facility] 01-06-2025 Miscellaneous Notes Pt returned the call and notified of CT results and Dr. Castorena's message and information. documented in this encounter [facility] 12-30-2024 History of Presen t illness Narrative Radiology Service Progress Note DATE OF SERVICE: December 30, 2024 TIME: 3:27 PM PATIENT IDENTITY VERIFICATION COMPLETED USING TWO (2) STANDARD IDENTIFIERS: Name and Date of confirmed by patient verbally. FALL SCREENING: Has the patient had 2 falls in the last year or 1 fall with injury or currently using an Ambulatory Assistive Device (Walker, Cane, Wheelchair, Crutches, etc.)? No PATIENT GENDER DATA: Assigned male at PATIENT RELEVANT IMPLANT DATA REVIEWED: Yes PATIENT PRESENTS WITH AN IMPLANTABLE OR ATTACHED PRODUCTION EXPERT: No ALLERGIES: Reviewed and unchanged CONTRAST ALLERGY: NO. EXAM: CT -CONTRAST INDUCED NEPHROPATHY RISK FACTORS: Patient age > 60 years CREATININE: Creatinine Date Value Ref Range Status 12/30/2024 1.00 0.73 - 1.22 mg/dL Final 08/05/2024 1.03 0.73 - 1.22 mg/dL Final 10/19/2023 1.13 0.73 - 1.22 mg/dL Final Estimated Glomerular Filtration Rate Date Value Ref Range Status 12/30/2024 86 >=60 mL/min/1.73m Final Comment: Estimated Glomerular Filtration Rate (eGFR) is calculated using the 2020 CKD-EPI creatinine equation. This equation utilizes serum creatinine, sex, and age as parameters. The creatinine assay has traceable calibration to isotope dilution-mass spectrometry. Refer to KDIGO guidelines for clinical interpretation. In patients with unstable renal function, e.g. those with acute kidney injury, the eGFR may not accurately reflect actual GFR. eGFR- Date Value Ref Range Status 06/18/2021 >60 Final P.O.C.T. RESULTS: POC done: Yes, See Lab Tab December 30, 2024 TREATMENT: N/A PERIPHERAL IV DATA: Ambulatory: A peripheral IV was started in the Left antecubital site with a Angio cath: 22 gauge. RADIOLOGY DEPARTMENT: CT; Exam(s) Completed: Abdomen/Pelvis SIGNATURE: RT Dylan(R) PATIENT NAME: Ekta Myrick DATE: December 30, 2024 TIME: 3:27 PM documented in this encounter [facility] 12-30-2024 Note HNO ID: [id number] Author: PING TRAORE RT(R) Service: ? Author Type: Provider Network Analyst Type: Progress Notes Filed: 12/30/2024 15:28 Note Text: Radiology Service Progress Note DATE OF SERVICE: December 30, 2024 TIME: 3:27 PM PATIENT IDENTITY VERIFICATION COMPLETED USING TWO (2) STANDARD IDENTIFIERS: Name and Date of confirmed by patient verbally. FALL SCREENING: Has the patient had 2 falls in the last year or 1 fall with injury or currently using an Ambulatory Assistive Device (Walker, Cane, Wheelchair, Crutches, etc.)? No PATIENT GENDER DATA: Assigned male at PATIENT RELEVANT IMPLANT DATA REVIEWED: Yes PATIENT PRESENTS WITH AN IMPLANTABLE OR ATTACHED PRODUCTION EXPERT: No ALLERGIES: Reviewed and unchanged CONTRAST ALLERGY: NO. EXAM: CT -CONTRAST INDUCED NEPHROPATHY RISK FACTORS: Patient age > 60 years CREATININE: Creatinine Date Value Ref Range Status 12/30/2024 1.00 0.73 - 1.22 mg/dL Final 08/05/2024 1.03 0.73 - 1.22 mg/dL Final 10/19/2023 1.13 0.73 - 1.22 mg/dL Final Estimated Glomerular Filtration Rate Date Value Ref Range Status 12/30/2024 86 >=60 mL/min/1.73m? Final Comment: Estimated Glomerular Filtration Rate (eGFR) is calculated using the 2020 CKD-EPI creatinine equation. This equation utilizes serum creatinine, sex, and age as parameters. The creatinine assay has traceable calibration to isotope dilution-mass spectrometry. Refer to KDIGO guidelines for clinical interpretation. In patients with unstable renal function, e.g. those with acute kidney injury, the eGFR may not accurately reflect actual GFR. eGFR- Date Value Ref Range Status 06/18/2021 >60 Final P.O.C.T. RESULTS: POC done: Yes, See Lab Tab December 30, 2024 TREATMENT: N/A PERIPHERAL IV DATA: Ambulatory: A peripheral IV was started in the Left antecubital site with a Angio cath: 22 gauge. RADIOLOGY DEPARTMENT: CT; Exam(s) Completed: Abdomen/Pelvis SIGNATURE: DHRUV Richardson) PATIENT NAME: Ekta Myrick DATE: December 30, 2024 TIME: 3:27 PM [facility] 12-15-2024 Note HNO ID: [id number] Author: ARCHIE CASTORENA MD Service: ? Author Type: Physician Type: Progress Notes Filed: 12/16/2024 08:08 Note Text: This note was created using [employer]. Subjective Patient presents with: Pain Ekta Myrick is a 59 year old male here with worsening chronic right lower quadrant pain for the past 2 months. He had improvement of this several months ago, after he was treated by Dr. Stevenson for irritable bowel with rifaximin. He was now concerned about a hernia, since pain was aggravated by bending over. Review of Systems Constitutional: Negative for appetite change, diaphoresis, fatigue and unexpected weight change. Respiratory: Negative for shortness of breath. Cardiovascular: Negative for chest pain. Gastrointestinal: Negative for abdominal distention, blood in stool, constipation, diarrhea, nausea and vomiting. Genitourinary: Negative for difficulty urinating, dysuria, flank pain and hematuria. ACTIVE PROBLEM LIST Agoraphobia With Panic Disorder Hyperlipidemia Impaired Fasting Glucose Chronic Angle-Closure Glaucoma of Both Eyes Elevated Psa Varicose Veins of Both Lower Extremities With Pain Neuropathy - (Nos) Bph Without Obstruction/Lower Urinary Tract Symptoms Irritable Bowel Syndrome With Diarrhea Social History Tobacco Use Smoking status: Never Smokeless tobacco: Never Substance Use Topics Alcohol use: No Drug use: No Current Outpatient Medications Medication Sig terbinafine HCl (LAMISIL) 250 mg tablet Take 1 tablet by mouth once daily. bimatoprost (LUMIGAN) 0.03 % ophthalmic drops Use 1 Drop in both eyes daily at bedtime. dorzolamide (TRUSOPT) 2 % ophthalmic solution Use 1 Drop in both eyes twice daily. ZOLOFT 100 MG TAB Take one(1) tablet daily. atorvastatin (LIPITOR) 10 mg tablet Take 1 tablet by mouth daily at bedtime. For cholesterol. iv contrast (will be provided with radiology test) CT ABD/PEL -Inject, intravenously, once for 1 dose.No IV access, insert saline lock prior to the beginning of sedation, infusion, injection of imaging exam. Discontinue saline lock post exam. If Pt. has a central line or IVAD, may access for administration according to line specific nursing protocol. Once exam is complete flush line and de-access according to line specific nursing protocol in the CT contrast administration guidelines link. enteric contrast (will be provided with radiology test) For CT ABD/PEL W IVCON Routine order Administer, As Directed One Time Only, via Oral, Rectal, both Oral and Rectal, Enteric Tube, Stoma or Indwelling Catheter, Enteric Contrast as designated per enteric contrast guidelines latanoprost (XALATAN) 0.005 % ophthalmic solution Use 1 Drop in both eyes daily at bedtime. TO AFFECTED EYE(S) (Patient not taking: Reported on 08/07/2024) No current facility-administered medications for this visit. Objective BP 131/77 (BP Site: Left Arm, BP Position: Sitting, BP Cuff Size: Large Adult) Pulse 71 Temp 37 ?C (98.6 ?F) (Temporal) Resp (!) 1 Wt 95 kg (209 lb 7 oz) BMI 27.63 kg/m? Physical Exam Constitutional: General: He is not in acute distress. Appearance: He is not ill-appearing. Cardiovascular: Heart sounds: Normal heart sounds. Pulmonary: Breath sounds: Normal breath sounds. Abdominal: General: Bowel sounds are normal. Palpations: Abdomen is soft. There is no mass. Tenderness: There is abdominal tenderness in the right lower quadrant. There is no guarding or rebound. Hernia: No hernia is present. Neurological: Mental Status: He is alert. Assessment and Plan 1. Right lower quadrant abdominal pain - ICD9: 789.03, ICD10: R10.31 (primary diagnosis) Etiology unclear - COMPLETE BLOOD COUNT - COMPREHENSIVE METABOLIC PANEL - CT ABD/PEL W IVCON - IV CONTRAST (RADIOLOGY PROCEDURE) - NOT ON MAR - ENTERIC CONTRAST (RADIOLOGY PROCEDURE) - NOT ON MAR - Further recommendations, referrals will depend on findings. 2. Irritable bowel syndrome with diarrhea - ICD9: 564.1, ICD10: K58.0 Stable. 3. Other hyperlipidemia - ICD9: 272.4, ICD10: E78.49 Refilled. - ATORVASTATIN 10 MG TABLET Archie Castorena MD [facility] 12-15-2024 History of Presen t illness Narrative This note was created using Note[employer]. Subjective Patient presents with: Pain Ekta Myrick is a 59 year old male here with worsening chronic right lower quadrant pain for the past 2 months. He had improvement of this several months ago, after he was treated by Dr. Stevenson for irritable bowel with rifaximin. He was now concerned about a hernia, since pain was aggravated by bending over. Review of Systems Constitutional: Negative for appetite change, diaphoresis, fatigue and unexpected weight change. Respiratory: Negative for shortness of breath. Cardiovascular: Negative for chest pain. Gastrointestinal: Negative for abdominal distention, blood in stool, constipation, diarrhea, nausea and vomiting. Genitourinary: Negative for difficulty urinating, dysuria, flank pain and hematuria. ACTIVE PROBLEM LIST Agoraphobia With Panic Disorder Hyperlipidemia Impaired Fasting Glucose Chronic Angle-Closure Glaucoma of Both Eyes Elevated Psa Varicose Veins of Both Lower Extremities With Pain Neuropathy - (Nos) Bph Without Obstruction/Lower Urinary Tract Symptoms Irritable Bowel Syndrome With Diarrhea Social History Tobacco Use Smoking status: Never Smokeless tobacco: Never Substance Use Topics Alcohol use: No Drug use: No Current Outpatient Medications Medication Sig terbinafine HCl (LAMISIL) 250 mg tablet Take 1 tablet by mouth once daily. bimatoprost (LUMIGAN) 0.03 % ophthalmic drops Use 1 Drop in both eyes daily at bedtime. dorzolamide (TRUSOPT) 2 % ophthalmic solution Use 1 Drop in both eyes twice daily. ZOLOFT 100 MG TAB Take one(1) tablet daily. atorvastatin (LIPITOR) 10 mg tablet Take 1 tablet by mouth daily at bedtime. For cholesterol. iv contrast (will be provided with radiology test) CT ABD/PEL -Inject, intravenously, once for 1 dose.No IV access, insert saline lock prior to the beginning of sedation, infusion, injection of imaging exam. Discontinue saline lock post exam. If Pt. has a central line or IVAD, may access for administration according to line specific nursing protocol. Once exam is complete flush line and de-access according to line specific nursing protocol in the CT contrast administration guidelines link. enteric contrast (will be provided with radiology test) For CT ABD/PEL W IVCON Routine order Administer, As Directed One Time Only, via Oral, Rectal, both Oral and Rectal, Enteric Tube, Stoma or Indwelling Catheter, Enteric Contrast as designated per enteric contrast guidelines latanoprost (XALATAN) 0.005 % ophthalmic solution Use 1 Drop in both eyes daily at bedtime. TO AFFECTED EYE(S) (Patient not taking: Reported on 08/07/2024) No current facility-administered medications for this visit. Objective BP 131/77 (BP Site: Left Arm, BP Position: Sitting, BP Cuff Size: Large Adult) Pulse 71 Temp 37 C (98.6 F) (Temporal) Resp (!) 1 Wt 95 kg (209 lb 7 oz) BMI 27.63 kg/m Physical Exam Constitutional: General: He is not in acute distress. Appearance: He is not ill-appearing. Cardiovascular: Heart sounds: Normal heart sounds. Pulmonary: Breath sounds: Normal breath sounds. Abdominal: General: Bowel sounds are normal. Palpations: Abdomen is soft. There is no mass. Tenderness: There is abdominal tenderness in the right lower quadrant. There is no guarding or rebound. Hernia: No hernia is present. Neurological: Mental Status: He is alert. Assessment and Plan 1. Right lower quadrant abdominal pain - ICD9: 789.03, ICD10: R10.31 (primary diagnosis) Etiology unclear - COMPLETE BLOOD COUNT - COMPREHENSIVE METABOLIC PANEL - CT ABD/PEL W IVCON - IV CONTRAST (RADIOLOGY PROCEDURE) - NOT ON MAR - ENTERIC CONTRAST (RADIOLOGY PROCEDURE) - NOT ON MAR - Further recommendations, referrals will depend on findings. 2. Irritable bowel syndrome with diarrhea - ICD9: 564.1, ICD10: K58.0 Stable. 3. Other hyperlipidemia - ICD9: 272.4, ICD10: E78.49 Refilled. - ATORVASTATIN 10 MG TABLET Archie Castorena MD documented in this encounter [facility] 11-06-2024 Telephone encounter Note Patient returned call. Message from Dr. Rosa given and patient verbalized understanding. Please sent Rx to [facility] in [place]. [facility] 11-06-2024 Miscellaneous Notes Patient returned call. Message from Dr. Rosa given and patient verbalized understanding. Please sent Rx to [facility] in [place]. Called patient to provide below results. No response. Left VM. Theresa Stevens LPN Images from the original note were not included. DevinGuerilne blanchardew [facility] Pool16 hours ago (6:37 PM) Please call patient to tell him that his blood work shows liver enzymes that are essentially normal. One is actually lower than normal range. If he is interested in lamisil, can call this in for him. Just need to know which pharmacy to send to Ryan Rosa DPM documented in this encounter [facility] 11-05-2024 Telephone encounter Note Called patient to provide below results. No response. Left VM. Theresa Stevens LPN [facility] 11-05-2024 Telephone encounter Note Images from the original note were not included. Ryan Rosa [facility] Pool16 hours ago (6:37 PM) Please call patient to tell him that his blood work shows liver enzymes that are essentially normal. One is actually lower than normal range. If he is interested in lamisil, can call this in for him. Just need to know which pharmacy to send to Ryan Rosa DPM [facility] 11-03-2024 Note HNO ID: [id number] Author: RYAN ROSA, ? Service: ? Author Type: Physician Type: Progress Notes Filed: 11/03/2024 08:26 Note Text: Consultation requested by Dr. Castorena for an opinion regarding nail deformity. My final recommendations will be communicated back to the requesting physician by way of shared Medical record or letter to requesting physician via US mail. Initial Podiatric Office Visit: Chief Complaint: This 59 year old male who presents with chief complaint:nail discoloration HPI Patient presents to clinic for evaluation of b/l feet. Complains of thick discolored toenails of b/l feet. Has been this way for several years. He currently cuts the nails himself. Has no issues cutting other than he has to be careful as they can tend to bleed He is here to discuss options. PAIN EVALUATION No data found in the last 1 encounters. Hemoglobin A1C (%) Date Value 08/08/2022 5.8 06/18/2021 6.0 02/28/2020 5.9 03/01/2019 5.9 06/08/2018 5.8 11/30/2017 6.0 PCP: Archie Castorena MD PAST MEDICAL HISTORY Diagnosis Date Agoraphobia with panic disorder 07/21/2005 Dr. Kc Anxiety disorder in conditions classified elsewhere Cholelithiasis 11/03/2023 Chronic angle-closure glaucoma of both eyes 02/13/2017 Colon polyp 12/04/2013 Esophageal reflux GERD (gastroesophageal reflux disease) 02/08/2011 Glaucoma Hyperlipidemia 07/21/2005 Impaired fasting glucose 11/05/2013 Irritable bowel syndrome with diarrhea 02/26/2024 Current Outpatient Medications Medication Sig bimatoprost (LUMIGAN) 0.03 % ophthalmic drops Use 1 Drop in both eyes daily at bedtime. atorvastatin (LIPITOR) 10 mg tablet Take 1 tablet by mouth daily at bedtime. For cholesterol. dorzolamide (TRUSOPT) 2 % ophthalmic solution Use 1 Drop in both eyes twice daily. latanoprost (XALATAN) 0.005 % ophthalmic solution Use 1 Drop in both eyes daily at bedtime. TO AFFECTED EYE(S) (Patient not taking: Reported on 08/07/2024) ZOLOFT 100 MG TAB Take one(1) tablet daily. No current facility-administered medications for this visit. ALLERGIES No Known Allergies PAST SURGICAL HISTORY Procedure Laterality Date APPENDECTOMY 1979 CATARACT EXTRACTION W/ INTRAOCULAR LENS IMPLANT HX Bilateral 11/2018 w/ glaucoma procedure. COLONOSCOPY FLX DX W/COLLJ SPEC WHEN PFRMD 12/04/2013 Colonoscopy COLONOSCOPY SCREENING 11/15/2023 EXPLORATORY LAPAROTOMY CELIOTOMY W/WO BIOPSY SPX 1979 Laparotomy, exp ;Adhesions FAMILY HISTORY Problem Relation Age of Onset Breast Cancer Mother Alzheimer's Disease Mother Hypertension Mother Hypertension Father Diabetes Father Blood Disease Father recurrent DVT on chronic warfarin Arthritis Brother knee replaced No Known Problems Sister Colon Cancer Maternal Grandfather No Known Problems Brother Social History Tobacco Use Smoking status: Never Smokeless tobacco: Never Substance Use Topics Alcohol use: No Drug use: No REVIEW OF SYSTEMS GENERAL: Negative for Malaise, significant weight loss, fever RESPIRATORY: Negative for cough, wheezing and shortness of breath CARDIOVASCULAR: Negative for chest pain, leg swelling and palpitations GI: Negative for abdominal discomfort, blood in stools or black stools and change in bowel habits : Negative for dysuria, frequency and incontinence MUSCULOSKELETAL: Negative for joint pain or swelling, back pain, and muscle pain. SKIN: Negative for lesions, rash, and itching. HEMATOLOGY/LYMPHOLOGY Negative for prolonged bleeding, bruising easily, and swollen nodes. ENDOCRINE: Negative for cold or heat intolerance, polyuria, polydipsia and goiter. NEURO: negative Physical Exam: Constitutional: Pt is a well developed 59 year old male who is alert, oriented and cooperative Eyes: Following during examination. No redness or drainage. Respiratory: RR normal and nonlabored. Even breathing. No evidence of distress or shortness of breath. Psychology: Patient is engaged during conversation. Normal affect and mood. Does not appear depressed or anxious during encounter. Vascular: Dorsalis pedis and posterior tibial pulses palpable as b/l Capillary Fill time < 5 seconds to digits 1-5 b/l Skin temperature warm to warm proximal to distal b/l Hair growth present to digits Neurological: intact light touch/epicritic sensation b/l intact protective sensation no significant neurological deficits Dermatological: Nails 1-4 left and 1,2,4 right are yellow, thick and discolored. Webspaces clean and dry 1-4 b/l. Skin appears well hydrated and supple. good color, texture, turgor. No open lesions present. No callosities present. Musculoskeletal/Orthopaedic: Patient has no pain to palpation of b/l feet Radiographs:n/a ASSESSMENT: (B35.1) Dermatophytosis of nail PLAN: We discussed the possible etiologies of discolored, dystrophic, and thickened nails including fungus, yeast, mold as well as i (more content not included)... [facility] 11-03-2024 History of Presen t illness Narrative Consultation requested by Dr. Castorena for an opinion regarding nail deformity. My final recommendations will be communicated back to the requesting physician by way of shared Medical record or letter to requesting physician via US mail. Initial Podiatric Office Visit: Chief Complaint: This 59 year old male who presents with chief complaint:nail discoloration HPI Patient presents to clinic for evaluation of b/l feet. Complains of thick discolored toenails of b/l feet. Has been this way for several years. He currently cuts the nails himself. Has no issues cutting other than he has to be careful as they can tend to bleed He is here to discuss options. PAIN EVALUATION No data found in the last 1 encounters. Hemoglobin A1C (%) Date Value 08/08/2022 5.8 06/18/2021 6.0 02/28/2020 5.9 03/01/2019 5.9 06/08/2018 5.8 11/30/2017 6.0 PCP: Archie Castorena MD PAST MEDICAL HISTORY Diagnosis Date Agoraphobia with panic disorder 07/21/2005 Dr. Kc Anxiety disorder in conditions classified elsewhere Cholelithiasis 11/03/2023 Chronic angle-closure glaucoma of both eyes 02/13/2017 Colon polyp 12/04/2013 Esophageal reflux GERD (gastroesophageal reflux disease) 02/08/2011 Glaucoma Hyperlipidemia 07/21/2005 Impaired fasting glucose 11/05/2013 Irritable bowel syndrome with diarrhea 02/26/2024 Current Outpatient Medications Medication Sig bimatoprost (LUMIGAN) 0.03 % ophthalmic drops Use 1 Drop in both eyes daily at bedtime. atorvastatin (LIPITOR) 10 mg tablet Take 1 tablet by mouth daily at bedtime. For cholesterol. dorzolamide (TRUSOPT) 2 % ophthalmic solution Use 1 Drop in both eyes twice daily. latanoprost (XALATAN) 0.005 % ophthalmic solution Use 1 Drop in both eyes daily at bedtime. TO AFFECTED EYE(S) (Patient not taking: Reported on 08/07/2024) ZOLOFT 100 MG TAB Take one(1) tablet daily. No current facility-administered medications for this visit. ALLERGIES No Known Allergies PAST SURGICAL HISTORY Procedure Laterality Date APPENDECTOMY 1979 CATARACT EXTRACTION W/ INTRAOCULAR LENS IMPLANT HX Bilateral 11/2018 w/ glaucoma procedure. COLONOSCOPY FLX DX W/COLLJ SPEC WHEN PFRMD 12/04/2013 Colonoscopy COLONOSCOPY SCREENING 11/15/2023 EXPLORATORY LAPAROTOMY CELIOTOMY W/WO BIOPSY SPX 1980 Laparotomy, exp ;Adhesions FAMILY HISTORY Problem Relation Age of Onset Breast Cancer Mother Alzheimer's Disease Mother Hypertension Mother Hypertension Father Diabetes Father Blood Disease Father recurrent DVT on chronic warfarin Arthritis Brother knee replaced No Known Problems Sister Colon Cancer Maternal Grandfather No Known Problems Brother Social History Tobacco Use Smoking status: Never Smokeless tobacco: Never Substance Use Topics Alcohol use: No Drug use: No REVIEW OF SYSTEMS GENERAL: Negative for Malaise, significant weight loss, fever RESPIRATORY: Negative for cough, wheezing and shortness of breath CARDIOVASCULAR: Negative for chest pain, leg swelling and palpitations GI: Negative for abdominal discomfort, blood in stools or black stools and change in bowel habits : Negative for dysuria, frequency and incontinence MUSCULOSKELETAL: Negative for joint pain or swelling, back pain, and muscle pain. SKIN: Negative for lesions, rash, and itching. HEMATOLOGY/LYMPHOLOGY Negative for prolonged bleeding, bruising easily, and swollen nodes. ENDOCRINE: Negative for cold or heat intolerance, polyuria, polydipsia and goiter. NEURO: negative Physical Exam: Constitutional: Pt is a well developed 59 year old male who is alert, oriented and cooperative Eyes: Following during examination. No redness or drainage. Respiratory: RR normal and nonlabored. Even breathing. No evidence of distress or shortness of breath. Psychology: Patient is engaged during conversation. Normal affect and mood. Does not appear depressed or anxious during encounter. Vascular: Dorsalis pedis and posterior tibial pulses palpable as b/l Capillary Fill time < 5 seconds to digits 1-5 b/l Skin temperature warm to warm proximal to distal b/l Hair growth present to digits Neurological: intact light touch/epicritic sensation b/l intact protective sensation no significant neurological deficits Dermatological: Nails 1-4 left and 1,2,4 right are yellow, thick and discolored. Webspaces clean and dry 1-4 b/l. Skin appears well hydrated and supple. good color, texture, turgor. No open lesions present. No callosities present. Musculoskeletal/Orthopaedic: Patient has no pain to palpation of b/l feet Radiographs:n/a ASSESSMENT: (B35.1) Dermatophytosis of nail PLAN: We discussed the possible etiologies of discolored, dystrophic, and thickened nails including fungus, yeast, mold as well as in some instances, prior trauma, or mechanical causes such as repetitive microtrauma in shoe gear. We discussed topical medication for discolored toenails which has very low success but no major side effects. We discussed oral medication. Patient will need hepatic testing prior to use. Patient informed of risks associated with Lamisil. We discussed removal of toenails. Patient would like to proceed with lamisil Offered fungal culture but he declined. He wishes to start medication pending blood work Discussed debridemetn vs removal. He has already trimmed the nails. Informed pateint that having long nails could place him at risk of traumatic avulsion if they catch on socks. He is to keep his nails cut short. . Ryan Rosa DPM Podiatry [address] [facility] [address] Dept: [phone] Dept AMB ROOMING INTAKE FLOWSHEET DATA Patient presents with: Left Foot - nail deformity , New Right Foot - nail deformity , New Theresa Stevens LPN documented in this encounter [facility] 11-03-2024 Note HNO ID: [id number] Author: THERESA STEVENS LPN Service: ? Author Type: LICENSED NURSE Type: Progress Notes Filed: 11/03/2024 08:26 Note Text: AMB ROOMING INTAKE FLOWSHEET DATA Patient presents with: Left Foot - nail deformity , New Right Foot - nail deformity , New Theresa Stevens LPN [facility] 08-07-2024 Instructions Archie Castorena MD - 08/07/2024 8:41 AM EDT How to limit salt (sodium) to avoid swelling and hypertension: Keep your daily sodium intake to 3 grams DO: Read labels Keep a food diary for the first week of restriction - must include snacks! Bake or broil your foods DO NOT DRINK: V8 juice Tomato juice Canned soups DO NOT EAT: Canned food Tomato Sauce Barbecue Sauce Soy Sauce Pickles Prepared meats such as salami, corned beef, etc. Fettuccine [place]y [place] con carne Beef burrito Potato salad Cottage cheese (both regular and low fat are high in sodium) Mongolian [place] Two-egg omelet, ham and cheese Chop suey (not even homemade!) Macaroni and cheese (not even homemade!) Cheeseburger Fish Sticks TIPS: Plain [place] breast is OK as sandwich meat Look for low salt soups in the grocery store- usually a bit more expensive. documented in this encounter [facility] 08-07-2024 Note HNO ID: [id number] Author: ARCHIE CASTORENA MD Service: ? Author Type: Physician Type: Progress Notes Filed: 08/07/2024 08:51 Note Text: This note was created using [employer]. Subjective Patient presents with: Yearly Exam 9 month follow-up Ekta Myrick is a 59 year old male. He had chronic right abdominal pain that significantly improved when Dr. Stevenson treated him for rifaximin for 6 weeks for irritable bowel. He still had residual discomfort. We reviewed past blood pressure readings and he has stage 1 hypertension. He preferred to work on lifestyle changes first before starting medication. He had thickened deformed toenails and requested referral to podiatry. Other providers: Dr. Apollo Stevenson, gastroenterology; Dr. Sana Fermin, ophthalmology; Dr. Nayana Owen, urology; Dr. Anna Kc, psychiatry. Review of Systems Constitutional: Negative for fatigue, fever and unexpected weight change. HENT: Negative for congestion. Eyes: Negative for visual disturbance. Respiratory: Negative for cough and shortness of breath. Cardiovascular: Negative for chest pain, palpitations and leg swelling. Gastrointestinal: Positive for abdominal pain. Negative for blood in stool, constipation, diarrhea, nausea and vomiting. Genitourinary: Negative for difficulty urinating and dysuria. Musculoskeletal: Positive for back pain. Negative for arthralgias and joint swelling. Neurological: Negative for dizziness and headaches. PAST MEDICAL HISTORY Diagnosis Date Agoraphobia with panic disorder 07/21/2005 Dr. Kc Anxiety disorder in conditions classified elsewhere Cholelithiasis 11/03/2023 Chronic angle-closure glaucoma of both eyes 02/13/2017 Colon polyp 12/04/2013 Esophageal reflux GERD (gastroesophageal reflux disease) 02/08/2011 Glaucoma Hyperlipidemia 07/21/2005 Impaired fasting glucose 11/05/2013 Irritable bowel syndrome with diarrhea 02/26/2024 Special screening for malignant neoplasms, colon 11/15/2023 PAST SURGICAL HISTORY Procedure Laterality Date APPENDECTOMY 1979 CATARACT EXTRACTION W/ INTRAOCULAR LENS IMPLANT HX Bilateral 11/2018 w/ glaucoma procedure. COLONOSCOPY FLX DX W/COLLJ SPEC WHEN PFRMD 12/04/2013 Colonoscopy COLONOSCOPY SCREENING 11/15/2023 EXPLORATORY LAPAROTOMY CELIOTOMY W/WO BIOPSY SPX 1979 Laparotomy, exp ;Adhesions FAMILY HISTORY Problem Relation Age of Onset Breast Cancer Mother Alzheimer's Disease Mother Hypertension Mother Hypertension Father Diabetes Father Blood Disease Father recurrent DVT on chronic warfarin Arthritis Brother knee replaced No Known Problems Sister Colon Cancer Maternal Grandfather No Known Problems Brother Social History Tobacco Use Smoking status: Never Smokeless tobacco: Never Substance Use Topics Alcohol use: No Drug use: No ALLERGIES No Known Allergies Current Outpatient Medications Medication Sig bimatoprost (LUMIGAN) 0.03 % ophthalmic drops Use 1 Drop in both eyes daily at bedtime. atorvastatin (LIPITOR) 10 mg tablet Take 1 tablet by mouth daily at bedtime. For cholesterol. dorzolamide (TRUSOPT) 2 % ophthalmic solution Use 1 Drop in both eyes twice daily. ZOLOFT 100 MG TAB Take one(1) tablet daily. latanoprost (XALATAN) 0.005 % ophthalmic solution Use 1 Drop in both eyes daily at bedtime. TO AFFECTED EYE(S) (Patient not taking: Reported on 08/07/2024) No current facility-administered medications for this visit. Objective BP 132/81 (BP Site: Left Arm, BP Position: Sitting, BP Cuff Size: Large Adult) Pulse (!) 55 Temp 36.6 ?C (97.9 ?F) (Temporal) Resp 16 Ht 185.4 cm (6' 1) Wt 95.3 kg (210 lb 1.6 oz) BMI 27.72 kg/m? Physical Exam Constitutional: General: He is not in acute distress. Appearance: He is not ill-appearing. HENT: Head: Normocephalic. Eyes: Extraocular Movements: Extraocular movements intact. Conjunctiva/sclera: Conjunctivae normal. Cardiovascular: Rate and Rhythm: Normal rate and regular rhythm. Heart sounds: No murmur heard. No gallop. Pulmonary: Breath sounds: Normal breath sounds. Abdominal: Palpations: Abdomen is soft. There is no mass. Tenderness: There is no abdominal tenderness. Hernia: No hernia is present. Musculoskeletal: General: No tenderness. Normal range of motion. Right lower leg: No edema. Left lower leg: No edema. Lymphadenopathy: Cervical: No cervical adenopathy. Skin: Comments: Feet:Shoes and socks removed, normal distal pulses, and nails notable for Crumbly, Deformed, Hypertrophic, or Yellowish Neurological: General: No focal deficit present. Mental Status: He is alert. Gait: Gait normal. Psychiatric: Mood and Affect: Mood normal. Latest Ref Rng 08/05/2024 WBC 3.70 - 11.00 k/uL 6.56 RBC 4.20 - 6.00 m/uL 5.07 Hemoglobin 13.0 - 17.0 g/dL 15.6 Hematocrit 39.0 - 51.0 % 46.6 MCV 80.0 - 100.0 fL 91.9 MCH 26.0 - 34.0 pg 30.8 MCHC 30.5 - 36.0 g/dL 33.5 RDW-CV 11.5 - 15.0 % 12.2 (more content not included)... [facility] 08-07-2024 History of Presen t illness Narrative This note was created using [employer]. Subjective Patient presents with: Yearly Exam 9 month follow-up Ekta Myrick is a 59 year old male. He had chronic right abdominal pain that significantly improved when Dr. Stevenson treated him for rifaximin for 6 weeks for irritable bowel. He still had residual discomfort. We reviewed past blood pressure readings and he has stage 1 hypertension. He preferred to work on lifestyle changes first before starting medication. He had thickened deformed toenails and requested referral to podiatry. Other providers: Dr. Apollo Stevenson, gastroenterology; Dr. Sana Fermin, ophthalmology; Dr. Nayana Owen, urology; Dr. Anna Kc, psychiatry. Review of Systems Constitutional: Negative for fatigue, fever and unexpected weight change. HENT: Negative for congestion. Eyes: Negative for visual disturbance. Respiratory: Negative for cough and shortness of breath. Cardiovascular: Negative for chest pain, palpitations and leg swelling. Gastrointestinal: Positive for abdominal pain. Negative for blood in stool, constipation, diarrhea, nausea and vomiting. Genitourinary: Negative for difficulty urinating and dysuria. Musculoskeletal: Positive for back pain. Negative for arthralgias and joint swelling. Neurological: Negative for dizziness and headaches. PAST MEDICAL HISTORY Diagnosis Date Agoraphobia with panic disorder 07/21/2005 Dr. Kc Anxiety disorder in conditions classified elsewhere Cholelithiasis 11/03/2023 Chronic angle-closure glaucoma of both eyes 02/13/2017 Colon polyp 12/04/2013 Esophageal reflux GERD (gastroesophageal reflux disease) 02/08/2011 Glaucoma Hyperlipidemia 07/21/2005 Impaired fasting glucose 11/05/2013 Irritable bowel syndrome with diarrhea 02/26/2024 Special screening for malignant neoplasms, colon 11/15/2023 PAST SURGICAL HISTORY Procedure Laterality Date APPENDECTOMY 1979 CATARACT EXTRACTION W/ INTRAOCULAR LENS IMPLANT HX Bilateral 11/2018 w/ glaucoma procedure. COLONOSCOPY FLX DX W/COLLJ SPEC WHEN PFRMD 12/04/2013 Colonoscopy COLONOSCOPY SCREENING 11/15/2023 EXPLORATORY LAPAROTOMY CELIOTOMY W/WO BIOPSY SPX 1979 Laparotomy, exp ;Adhesions FAMILY HISTORY Problem Relation Age of Onset Breast Cancer Mother Alzheimer's Disease Mother Hypertension Mother Hypertension Father Diabetes Father Blood Disease Father recurrent DVT on chronic warfarin Arthritis Brother knee replaced No Known Problems Sister Colon Cancer Maternal Grandfather No Known Problems Brother Social History Tobacco Use Smoking status: Never Smokeless tobacco: Never Substance Use Topics Alcohol use: No Drug use: No ALLERGIES No Known Allergies Current Outpatient Medications Medication Sig bimatoprost (LUMIGAN) 0.03 % ophthalmic drops Use 1 Drop in both eyes daily at bedtime. atorvastatin (LIPITOR) 10 mg tablet Take 1 tablet by mouth daily at bedtime. For cholesterol. dorzolamide (TRUSOPT) 2 % ophthalmic solution Use 1 Drop in both eyes twice daily. ZOLOFT 100 MG TAB Take one(1) tablet daily. latanoprost (XALATAN) 0.005 % ophthalmic solution Use 1 Drop in both eyes daily at bedtime. TO AFFECTED EYE(S) (Patient not taking: Reported on 08/07/2024) No current facility-administered medications for this visit. Objective BP 132/81 (BP Site: Left Arm, BP Position: Sitting, BP Cuff Size: Large Adult) Pulse (!) 55 Temp 36.6 C (97.9 F) (Temporal) Resp 16 Ht 185.4 cm (6' 1) Wt 95.3 kg (210 lb 1.6 oz) BMI 27.72 kg/m Physical Exam Constitutional: General: He is not in acute distress. Appearance: He is not ill-appearing. HENT: Head: Normocephalic. Eyes: Extraocular Movements: Extraocular movements intact. Conjunctiva/sclera: Conjunctivae normal. Cardiovascular: Rate and Rhythm: Normal rate and regular rhythm. Heart sounds: No murmur heard. No gallop. Pulmonary: Breath sounds: Normal breath sounds. Abdominal: Palpations: Abdomen is soft. There is no mass. Tenderness: There is no abdominal tenderness. Hernia: No hernia is present. Musculoskeletal: General: No tenderness. Normal range of motion. Right lower leg: No edema. Left lower leg: No edema. Lymphadenopathy: Cervical: No cervical adenopathy. Skin: Comments: Feet:Shoes and socks removed, normal distal pulses, and nails notable for Crumbly, Deformed, Hypertrophic, or Yellowish Neurological: General: No focal deficit present. Mental Status: He is alert. Gait: Gait normal. Psychiatric: Mood and Affect: Mood normal. Latest Ref [facility] 08/05/2024 WBC 3.70 - 11.00 k/uL 6.56 RBC 4.20 - 6.00 m/uL 5.07 Hemoglobin 13.0 - 17.0 g/dL 15.6 Hematocrit 39.0 - 51.0 % 46.6 MCV 80.0 - 100.0 fL 91.9 MCH 26.0 - 34.0 pg 30.8 MCHC 30.5 - 36.0 g/dL 33.5 RDW-CV 11.5 - 15.0 % 12.2 Platelet Count 150 - 400 k/uL 189 MPV 9.0 - 12.7 fL 10.5 Absolute nRBC <0.01 k/uL <0.01 Glucose 74 - 99 mg/dL 102 (H) BUN 9 - 24 mg/dL 14 Creatinine 0.73 - 1.22 mg/dL 1.03 Sodium 136 - 144 mmol/L 139 Potassium 3.7 - 5.1 mmol/L 4.1 Chloride 98 - 107 mmol/L 102 CO2 22 - 30 mmol/L 27 Anion Gap 8 - 15 mmol/L 10 Calcium 8.5 - 10.2 mg/dL 9.4 eGFR >=60 mL/min/1.73m 83 Cholesterol, Total <200 mg/dL 173 Triglyceride <150 mg/dL 188 (H) HDL Cholesterol >39 mg/dL 58 Non HDL Cholesterol <130 mg/dL 115 Fasting Time hrs 12 VLDL Cholesterol <30 mg/dL 38 (H) TC:HDL Ratio <5.10 2.98 LDL Cholesterol <100 mg/dL 77 LDL:HDL Ratio <2.54 1.33 PSA <2.60 ng/mL 5.49 (H) PSA, Percent Free % 19 Legend: (H) High Assessment and Plan 1. Routine physical examination - ICD9: V70.0, ICD10: Z00.00 (primary diagnosis) - Counseled on healthy diet and regular exercise - Discussed need for and benefit of weight loss. BMI 27.72 kg/(m^2) 2. Irritable bowel syndrome with diarrhea - ICD9: 564.1, ICD10: K58.0 - Improved. Controlled. 3. Screening for depression - ICD9: V79.0, ICD10: Z13.31 - DEPRESSION SCREENING 4. Primary hypertension - ICD9: 401.9, ICD10: I10 - New diagnosis - Encouraged sodium restriction, DASH or Mediterranean diet - Recommend regular aerobic exercise - Discussed need for and benefit of weight loss. BMI 27.72 kg/(m^2) - Decide on medication if not at goal in 6 months. 5. Other hyperlipidemia - ICD9: 272.4, ICD10: E78.49 - Controlled. 6. Impaired fasting glucose - ICD9: 790.21, ICD10: R73.01 - Stable. 7. Dermatophytosis of nail - ICD9: 110.1, ICD10: B35.1 - CONSULT TO PODIATRY 8. Chronic angle-closure glaucoma of both eyes, unspecified glaucoma stage - ICD9: 365.23, 365.70, ICD10: H40.2230 - Per ophthalmology. Archie Castorena MD documented in this encounter [facility] 08-04-2024 Telephone encounter Note Pt notified. Ayah Mullen LPN [facility] 08-04-2024 Miscellaneous Notes Pt notified. Ayah Mullen LPN Left message for return call. Fasting labs ordered. Patient came into office wanting labs drawn before his appt on 08/07. However, there is no lab orders. Please review and advise. Sana Bettencourt August 02, 2024 8:43 AM documented in this encounter [facility] 08-04-2024 Telephone encounter Note Left message for return call. [facility] 08-03-2024 Telephone encounter Note Fasting labs ordered. [facility] 08-02-2024 Telephone encounter Note Patient came into office wanting labs drawn before his appt on 08/07. However, there is no lab orders. Please review and advise. Sana Bettencourt August 02, 2024 8:43 AM [facility] 02-26-2024 History of Presen t illness Narrative CC Patient presents with: Abdominal Pain: Intermittently x 1 year HPI Ekta Myrick is a 59 year old male who presents with intermittent abdominal pain occurring 3-4 days a week for the past year. Location: lower abdomen with occasional radiation to low back Described as: unable to describe Aggravating factors: sometimes seems to be triggered after eating lunch, no particular food Alleviating factors: resolves on its own Associated symptoms: intermittent diarrhea, heartburn, reflux Denies: blood in stools or black stools, nausea, vomiting, constipation, decreased appetite GI history: none. Surgeries: none. Endoscopy: colonoscopy November 2023, normal Family history: non-contributory Review of Systems Constitutional: Negative for activity change, appetite change, chills, diaphoresis, fatigue, fever and unexpected weight change. HENT: Negative for trouble swallowing. Respiratory: Negative for cough, shortness of breath and wheezing. Cardiovascular: Negative for chest pain, palpitations and leg swelling. Genitourinary: Negative for decreased urine volume, difficulty urinating, dysuria, frequency and urgency. PAST MEDICAL HISTORY Diagnosis Date Agoraphobia with panic disorder 07/21/2005 Dr. Kc Anxiety disorder in conditions classified elsewhere Cholelithiasis 11/03/2023 Chronic angle-closure glaucoma of both eyes 02/13/2017 Colon polyp 12/04/2013 Esophageal reflux GERD (gastroesophageal reflux disease) 02/08/2011 Glaucoma Hyperlipidemia 07/21/2005 Impaired fasting glucose 11/05/2013 PAST SURGICAL HISTORY Procedure Laterality Date APPENDECTOMY 1979 CATARACT EXTRACTION W/ INTRAOCULAR LENS IMPLANT HX Bilateral 11/2018 w/ glaucoma procedure. COLONOSCOPY FLX DX W/COLLJ SPEC WHEN PFRMD 12/04/13 Colonoscopy EXPLORATORY LAPAROTOMY CELIOTOMY W/WO BIOPSY SPX 1979 Laparotomy, exp ;Adhesions ALLERGIES Patient has no known allergies. MEDICATIONS atorvastatin (LIPITOR) 10 mg tablet Take 1 tablet by mouth daily at bedtime. For cholesterol. dorzolamide (TRUSOPT) 2 % ophthalmic solution Use 1 Drop in both eyes twice daily. latanoprost (XALATAN) 0.005 % ophthalmic solution Use 1 Drop in both eyes daily at bedtime. TO AFFECTED EYE(S) ZOLOFT 100 MG TAB Take one(1) tablet daily. FAMILY HISTORY Problem Relation Age of Onset Breast Cancer Mother Alzheimer's Disease Mother Hypertension Mother Hypertension Father Diabetes Father Blood Disease Father recurrent DVT on chronic warfarin Arthritis Brother knee replaced No Known Problems Sister Colon Cancer Maternal Grandfather No Known Problems Brother Social History Tobacco Use Smoking status: Never Smokeless tobacco: Never Substance Use Topics Alcohol use: No Drug use: No BP 134/86 Pulse 66 Resp 18 Wt 94.3 kg (208 lb) SpO2 93% BMI 28.21 kg/m Physical Exam Vitals reviewed. Constitutional: Appearance: Normal appearance. He is not ill-appearing. Eyes: Conjunctiva/sclera: Conjunctivae normal. Cardiovascular: Rate and Rhythm: Normal rate and regular rhythm. Pulmonary: Effort: Pulmonary effort is normal. Breath sounds: Normal breath sounds. Abdominal: General: Bowel sounds are normal. There is no distension. Palpations: Abdomen is soft. There is no hepatomegaly, splenomegaly or mass. Tenderness: There is abdominal tenderness (mild LLQ). There is no right CVA tenderness, left CVA tenderness, guarding or rebound. Hernia: No hernia is present. Skin: General: Skin is warm and dry. Coloration: Skin is not jaundiced. Neurological: Mental Status: He is alert. Psychiatric: Mood and Affect: Mood normal. DATA REVIEWED: Most recent CT and ultrasound abdomen ASSESSMENT/PLAN: 1. Chronic abdominal pain - ICD9: 789.00, 338.29, ICD10: R10.9, G89.29 (primary diagnosis) Etiology unclear. No alarm symptoms or exam findings. Work-up this far including CT abdomen, ultrasound abdomen and colonoscopy negative Differential Diagnosis includes IBS, IBD, musculoskeletal, hernia - CONSULT TO GASTROENTEROLOGY for further evaluation and recommendations 2. Diarrhea, unspecified type - ICD9: 787.91, ICD10: R19.7 As above - CONSULT TO GASTROENTEROLOGY Prescription instructions reviewed with patient as applicable. Potential red flag symptoms discussed with the patient. Reviewed appropriate action plan to take if red flag symptoms occur. Patient agreeable to treatment plan. India Colón APRN.JONO documented in this encounter [facility] 11-15-2023 Nurse Note Patient passing a moderate amount of air via rectum. Abdomen soft non-distended. Will continue to monitor. documented in this encounter [facility] 11-15-2023 History and physical note Images from the original note were not included. Subjective Ekta Myrick is a 58 year old male. His flank pain came and went. He was interested in getting his colonoscopy. He was due this spring. He was losing weight, possibly from dental issues. He had no change in bowel habits, except his stool narrowed at times. Review of Systems Constitutional: Positive for unexpected weight change. Negative for appetite change, fatigue and fever. Respiratory: Negative. Cardiovascular: Negative. Gastrointestinal: Negative for abdominal pain, blood in stool, constipation, diarrhea, nausea, rectal pain and vomiting. Genitourinary: Negative for difficulty urinating. ACTIVE PROBLEM LIST Agoraphobia With Panic Disorder Hyperlipidemia Impaired Fasting Glucose Colon Polyp Chronic Angle-Closure Glaucoma of Both Eyes Elevated Psa Varicose Veins of Both Lower Extremities With Pain Neuropathy - (Nos) CURRENT MEDICATIONS Current Outpatient Medications Medication Sig dorzolamide (TRUSOPT) 2 % ophthalmic solution Use 1 Drop in both eyes twice daily. latanoprost (XALATAN) 0.005 % ophthalmic solution Use 1 Drop in both eyes daily at bedtime. TO AFFECTED EYE(S) ZOLOFT 100 MG TAB Take one(1) tablet daily. atorvastatin (LIPITOR) 10 mg tablet Take 1 tablet by mouth daily at bedtime. For cholesterol. peg 3350-electrolytes (GAVILYTE-C) 240-22.72-6.72 -5.84 gram solution Take 4,000 mL by mouth one time only for 1 dose. No current facility-administered medications for this visit. Objective BP (P) 140/83 (BP Site: Left Arm, BP Position: Sitting, BP Cuff Size: Large Adult) Pulse (!) (P) 51 Temp 36.5 C (97.7 F) (Temporal) Resp 16 Wt 93.4 kg (206 lb) BMI 27.94 kg/m Physical Exam Constitutional: Appearance: Normal appearance. HENT: Head: Normocephalic. Eyes: General: No scleral icterus. Conjunctiva/sclera: Conjunctivae normal. Pulmonary: Effort: Pulmonary effort is normal. Abdominal: Palpations: Abdomen is soft. There is no mass. Tenderness: There is no abdominal tenderness. Musculoskeletal: Lumbar back: No tenderness or bony tenderness. Negative right straight leg raise test and negative left straight leg raise test. Neurological: Mental Status: He is alert. CBC, CMP this month normal. Assessment and Plan 1. Right flank pain - ICD9: 789.09, ICD10: R10.9 (primary diagnosis) Recurrent. Consider PT. 2. Polyp of colon, unspecified part of colon, unspecified type - ICD9: 211.3, ICD10: K63.5 Due for recheck. 3. Special screening for malignant neoplasms, colon - ICD9: V76.51, ICD10: Z12.11 - COLONOSCOPY SCREENING - PEG 3350 240 GRAM-ELECTROLYTES 22.72 GRAM-6.72 G-5.84 G POWDR FOR SOLN 4. Need for vaccination - ICD9: V05.9, ICD10: Z23 - RSV VACCINE, BIVALENT (ABRYSVO) Archie Castorena MD UPDATED HISTORY AND PHYSICAL EXAMINATION SERVICE DATE: 11/15/2023 SERVICE TIME: 8:46 AM Code Status: Not on file PHYSICAL EXAM MUST BE COMPLETED ON ADMISSION The History and Physical (completed in the past 30 days) has been reviewed and the patient has been examined. The contents accurately reflect the patient's condition with the following additions or revisions since the H&P was completed. Examination indicates no changes. This H&P can be found in the attached. SIGNATURE: Kayode Morse III, MD PATIENT NAME: Ekta Myrick DATE: November 15, 2023 TIME: 8:46 AM documented in this encounter [facility] 03-14-2023 History of Presen t illness Narrative Radiology Service Progress Note PATIENT NAME: Ekta Myrick DATE OF SERVICE: March 14, 2023 TIME: 3:08 PM PATIENT IDENTITY VERIFICATION COMPLETED USING TWO (2) IDENTIFIERS: Name and Date of confirmed by patient verbally. FALL SCREENING: Has the patient had 2 falls in the last year or 1 fall with injury or currently using an Ambulatory Assistive Device (Walker, Cane, Wheelchair, Crutches, etc.)? No PATIENT GENDER DATA: Male PATIENT RELEVANT IMPLANT DATA REVIEWED: Yes RADIOLOGY DEPARTMENT: CT; Exam(s) Completed: Abdomen/Pelvis PERIPHERAL IV DATA: Not applicable SIGNED BY: RT Dylan(R) March 14, 2023 3:08 PM documented in this encounter [facility] 03-14-2023 History of Presen t illness Narrative CC Patient presents with: stomach pain / possible kidney stone: Right flank pain HPI Ekta Myrick is a 58 year old male who presents with abdominal pain for for a month. Location: Right flank with radiation to right lower abdomen Described as: intermittent sharp/stabbing, sometimes takes my breath away Aggravating factors: none Alleviating factors: none Associated symptoms: nausea Denies: blood in stools or black stools, diarrhea, constipation, heart burn, vomiting PSA elevated in August, urinalysis was positive for RBC's, ultrasound revealed markedly enlarged prostate and simple kidney cyst. Patient reports occasional slow stream and hesitancy. Denies dysuria, urgency, frequency, hematuria, nocturia, decreased urine output. No history of kidney stones. REVIEW OF SYSTEMS See HPI PAST MEDICAL HISTORY Diagnosis Date Agoraphobia with panic disorder 07/21/2005 Dr. Kc Anxiety disorder in conditions classified elsewhere Chronic angle-closure glaucoma of both eyes 02/13/2017 Colon polyp 12/04/2013 Esophageal reflux GERD (gastroesophageal reflux disease) 02/08/2011 Glaucoma Hyperlipidemia 07/21/2005 Impaired fasting glucose 11/05/2013 PAST SURGICAL HISTORY Procedure Laterality Date APPENDECTOMY 1979 CATARACT EXTRACTION W/ INTRAOCULAR LENS IMPLANT HX Bilateral 11/2018 w/ glaucoma procedure. COLONOSCOPY FLX DX W/COLLJ SPEC WHEN PFRMD 12/04/13 Colonoscopy EXPLORATORY LAPAROTOMY CELIOTOMY W/WO BIOPSY SPX 1979 Laparotomy, exp ;Adhesions ALLERGIES Patient has no known allergies. MEDICATIONS atorvastatin (LIPITOR) 10 mg tablet Take 1 tablet by mouth daily at bedtime. For cholesterol. dorzolamide (TRUSOPT) 2 % ophthalmic solution Use 1 Drop in both eyes twice daily. latanoprost (XALATAN) 0.005 % ophthalmic solution Use 1 Drop in both eyes daily at bedtime. TO AFFECTED EYE(S) ZOLOFT 100 MG TAB Take one(1) tablet daily. FAMILY HISTORY Problem Relation Age of Onset Breast Cancer Mother Alzheimer's Disease Mother Hypertension Mother Hypertension Father Diabetes Father Blood Disease Father recurrent DVT on chronic warfarin Arthritis Brother knee replaced No Known Problems Sister Colon Cancer Maternal Grandfather No Known Problems Brother Social History Tobacco Use Smoking status: Never Smokeless tobacco: Never Substance Use Topics Alcohol use: No Drug use: No PHYSICAL EXAM BP 162/102 Pulse 64 Resp 16 Wt 97.5 kg (215 lb) BMI (P) 29.16 kg/m General Appearance: well appearing, in no acute distress, alert Lungs: Lungs clear to auscultation. No wheezing, rhonchi, rales. Heart: RRR without murmur, gallop, or rubs. No ectopy Abdomen: Soft, non-distended. mild right lower quadrant abdominal tenderness with palpation. No guarding or rebound tenderness. Bowel sounds normal and active. No masses, organomegaly but difficult exam due to body habitus. CVA tenderness absent DATA REVIEWED: Most recent labs Most recent imaging ASSESSMENT/PLAN: 1. Right flank pain - ICD9: 789.09, ICD10: R10.9 (primary diagnosis) Differential Diagnosis includes Kidney stones/colic, Cystitis, and prostatitis - UA DIP, URINE (POC) positive for moderate amount of blood, otherwise normal. Send for URINALYSIS, WITH MICROSCOPIC and URINE CULTURE Evaluate further with: - CT FLANK WO IVCON - CBC + DIFF - COMP METABOLIC PANEL - PSA/PROSTSPECAG DIAG Follow-up pending results 2. Asymptomatic microscopic hematuria - ICD9: 599.72, ICD10: R31.21 As above - CT FLANK WO IVCON - URINALYSIS, WITH MICROSCOPIC - URINE CULTURE - CBC + DIFF - COMP METABOLIC PANEL - PSA/PROSTSPECAG DIAG 3. Elevated PSA - ICD9: 790.93, ICD10: R97.20 As above - PSA/PROSTSPECAG DIAG Prescription instructions reviewed with patient as applicable. Potential red flag symptoms discussed with the patient. Reviewed appropriate action plan to take if red flag symptoms occur. Patient agreeable to treatment plan. India Jimenez APRN.CNP documented in this encounter [facility] 09-04-2022 Miscellaneous Notes Patient notified of results and provider's instructions. Patient verbalizes understanding. Lindy Cleveland RN Left message to call office. 09/04/2022 1:44 PM ----- Message from Archie Castorena MD sent at 09/03/2022 4:33 PM EST ----- Prostate markedly enlarged. Continue to monitor. Benign cyst of right kidney not a concern. documented in this encounter [facility] 09-01-2022 History of Presen t illness Narrative Radiology Service Progress Note PATIENT NAME: Ekta Myrick DATE OF SERVICE: September 01, 2022 TIME: 2:36 PM PATIENT IDENTITY VERIFICATION COMPLETED USING TWO (2) IDENTIFIERS: Name and Date of confirmed by patient verbally. FALL SCREENING: Has the patient had 2 falls in the last year or 1 fall with injury or currently using an Ambulatory Assistive Device (Walker, Cane, Wheelchair, Crutches, etc.)? No PATIENT GENDER DATA: Male PATIENT RELEVANT IMPLANT DATA REVIEWED: Not Applicable RADIOLOGY DEPARTMENT: Ultrasound PERIPHERAL IV DATA: Not applicable SIGNED BY: Alma Rosa Victoria RDMS September 01, 2022 2:36 PM documented in this encounter [facility] 08-29-2022 Miscellaneous Notes Called PT LVM to call back and schedule US. Brenda KLEIN Patient returned call and given provider's message below. Pt agreeable to having an US of kidney and bladder if PCP would place order. Please call pt to schedule once order placed. Thank you. Images from the original note were not included. Message left for patient to call PCP office for provider's message below. Shelby Osborn RN COPIED: 08/11/22 URINALYSIS, WITH MICROSCOPIC RobJuan Castorena MD P Wstr Im Raffaele Pool Small amount of hematuria, significance not clear. Consider US of kidney, bladder. documented in this encounter [facility] 08-11-2022 History of Presen t illness Narrative This note was created using Xandter. Subjective Patient presents with: Yearly Exam Ekta Myrick is a 57 year old male. He was doing well in general. He exercised by walking 30 minutes on weekends. His work was fairly physical. He had occasional pain of the left thigh that improved with activity. He wore compression stockings on his left leg where he has large varicose veins with no symptoms. He sees Dr. Fermin for eye exams and Dr. Kc for mental health. He got his flu shot at work. Review of Systems HENT: Negative. Eyes: Negative. Respiratory: Negative. Cardiovascular: Negative. Gastrointestinal: Negative. Genitourinary: Negative. Musculoskeletal: Positive for myalgias. Negative for arthralgias, back pain, gait problem and joint swelling. Skin: Negative. Neurological: Negative. Psychiatric/Behavioral: Negative. PAST MEDICAL HISTORY Diagnosis Date Agoraphobia with panic disorder 07/21/2005 Dr. Kc Anxiety disorder in conditions classified elsewhere Chronic angle-closure glaucoma of both eyes 02/13/2017 Colon polyp 12/04/2013 Esophageal reflux GERD (gastroesophageal reflux disease) 02/08/2011 Glaucoma Hyperlipidemia 07/21/2005 Impaired fasting glucose 11/05/2013 PAST SURGICAL HISTORY Procedure Laterality Date APPENDECTOMY 1979 CATARACT EXTRACTION W/ INTRAOCULAR LENS IMPLANT HX Bilateral 11/2018 w/ glaucoma procedure. COLONOSCOPY FLX DX W/COLLJ SPEC WHEN PFRMD 12/04/13 Colonoscopy EXPLORATORY LAPAROTOMY CELIOTOMY W/WO BIOPSY SPX 1979 Laparotomy, exp ;Adhesions FAMILY HISTORY Problem Relation Age of Onset Breast Cancer Mother Alzheimer's Disease Mother Hypertension Mother Hypertension Father Diabetes Father Blood Disease Father recurrent DVT on chronic warfarin Arthritis Brother knee replaced No Known Problems Sister Colon Cancer Maternal Grandfather No Known Problems Brother Social History Tobacco Use Smoking status: Never Smokeless tobacco: Never Substance Use Topics Alcohol use: No Drug use: No ALLERGIES No Known Allergies Current Outpatient Medications Medication Sig atorvastatin (LIPITOR) 10 mg tablet Take 1 tablet by mouth daily at bedtime. For cholesterol. dorzolamide (TRUSOPT) 2 % ophthalmic solution Use 1 Drop in both eyes twice daily. latanoprost (XALATAN) 0.005 % ophthalmic solution Use 1 Drop in both eyes daily at bedtime. TO AFFECTED EYE(S) ZOLOFT 100 MG TAB Take one(1) tablet daily. No current facility-administered medications for this visit. Objective BP 124/82 (BP Site: Left Arm, BP Position: Sitting) Pulse (P) 66 Ht (P) 182.9 cm (6') Wt (P) 97.1 kg (214 lb) BMI (P) 29.02 kg/m Physical Exam Constitutional: Appearance: Normal appearance. HENT: Head: Normocephalic. Eyes: Extraocular Movements: Extraocular movements intact. Conjunctiva/sclera: Conjunctivae normal. Pupils: Pupils are equal, round, and reactive to light. Cardiovascular: Rate and Rhythm: Normal rate and regular rhythm. Heart sounds: No murmur heard. No gallop. Pulmonary: Effort: Pulmonary effort is normal. Breath sounds: Normal breath sounds. Abdominal: Palpations: Abdomen is soft. There is no mass. Tenderness: There is no abdominal tenderness. Hernia: No hernia is present. Musculoskeletal: Cervical back: Neck supple. Right hip: Normal. Left hip: Normal. Right upper leg: Normal. Left upper leg: Normal. Right knee: Normal. Left knee: Normal. Right lower leg: Normal. Left lower leg: Normal. Comments: Non tender large varicose veins mostly in medial left calf. Lymphadenopathy: Cervical: No cervical adenopathy. Neurological: Mental Status: He is alert. Component Latest Ref Rng & Units 08/08/2022 Protein, Total 6.3 - 8.0 g/dL 7.2 Albumin 3.9 - 4.9 g/dL 4.6 Calcium 8.5 - 10.2 mg/dL 9.7 Bilirubin, Total 0.2 - 1.3 mg/dL 1.9 (H) Alkaline Phosphatase 38 - 113 U/L 53 AST 14 - 40 U/L 19 ALT 10 - 54 U/L 17 Glucose 74 - 99 mg/dL 80 BUN 9 - 24 mg/dL 17 Creatinine 0.73 - 1.22 mg/dL 1.21 Sodium 136 - 144 mmol/L 139 Potassium 3.7 - 5.1 mmol/L 3.8 Chloride 97 - 105 mmol/L 102 CO2 22 - 30 mmol/L 24 Anion Gap 9 - 18 mmol/L 13 eGFR >=60 mL/min/1.73m 69 WBC 3.70 - 11.00 k/uL 8.25 RBC 4.20 - 6.00 m/uL 4.88 Hemoglobin 13.0 - 17.0 g/dL 15.2 Hematocrit 39.0 - 51.0 % 44.5 MCV 80.0 - 100.0 fL 91.2 MCH 26.0 - 34.0 pg 31.1 MCHC 30.5 - 36.0 g/dL 34.2 RDW-CV 11.5 - 15.0 % 12.1 Platelet Count 150 - 400 k/uL 198 MPV 9.0 - 12.7 fL 11.1 Absolute nRBC <0.01 k/uL <0.01 Cholesterol, Total <200 mg/dL 158 Triglyceride <150 mg/dL 167 (H) HDL Cholesterol >39 mg/dL 58 Non HDL Cholesterol <130 mg/dL 100 Fasting Time hrs 12 VLDL Cholesterol <30 mg/dL 33 (H) TC:HDL Ratio <5.10 2.72 LDL Cholesterol <100 mg/dL 67 LDL:HDL Ratio <2.54 1.16 Hemoglobin A1C 4.3 - 5.6 % 5.8 (H) Estimated Average Glucose mg/dL 120 PSA <2.60 ng/mL 4.46 (H) Assessment and Plan 1. Routine physical examination - ICD9: V70.0, ICD10: Z00.00 (primary diagnosis) - Counseled on healthy diet and regular exercise - Discussed need for and benefit of weight loss. No weight on file for this encounter. - Risks/benefits of prostate cancer screening discussed. 2. Elevated PSA - ICD9: 790.93, ICD10: R97.20 Shared medical decision. Continue to monitor annually. Check UA today. Call for urinary symptoms. - URINALYSIS, WITH MICROSCOPIC 3. Other hyperlipidemia - ICD9: 272.4, ICD10: E78.49 Controlled. He forgets medication often. Medication adherence stressed. He will call when he needs refills. 4. Impaired fasting glucose - ICD9: 790.21, ICD10: R73.01 Improved. 5. Varicose veins of both lower extremities with pain - ICD9: 454.8, ICD10: I83.813 Continue support stockings. Archie Castorena MD documented in this encounter [facility] 08-11-2022 Instructions Archie Castorena MD - 08/11/2022 8:31 AM EDT Exercise 30 minutes 5 days per week. Limit carbohydrates to less than 1/4 of daily consumption (sweets, bread, potatoes, pasta, rice) documented in this encounter [facility] 08-07-2022 Miscellaneous Notes Msg left for Patient re: fasting labs. Laurel Coy LPN Fasting labs ordered India Jimenez APRN.CNP Pending for review. Please place lab orders for upcoming physical. Please call patient when orders are filled. documented in this encounter [facility] 07-19-2012 History of Past i llness Narrative Problem Noted Date Resolved Date Right inguinal hernia 07/19/2012 02/13/2017 GERD (gastroesophageal reflux disease) 1 07/19/2012 Esophageal reflux 07/21/2005 08/10/2006 documented as of this encounter (statuses as of 08/07/2022) [address]12-2012 History of Past illness Narrative* Problem Noted Date Resolved Date Right inguinal hernia 07/19/2012 02/13/2017 GERD (gastroesophageal reflux disease) 1 07/19/2012 Esophageal reflux 07/21/2005 08/10/2006 documented as of this encounter (statuses as of 08/11/2022) [facility] History of Past illness Narrative* Problem Noted Date Resolved Date Right inguinal hernia 07/19/2012 02/13/2017 GERD (gastroesophageal reflux disease) 1 07/19/2012 Esophageal reflux 07/21/2005 08/10/2006 documented as of this encounter (statuses as of 08/29/2022) [address]12-2012 History of Past illness Narrative* Problem Noted Date Resolved Date Right inguinal hernia 07/19/2012 02/13/2017 GERD (gastroesophageal reflux disease) 1 07/19/2012 Esophageal reflux 07/21/2005 08/10/2006 documented as of this encounter (statuses as of 09/04/2022) [facility] of Past illness Narrative* Problem Noted Date Resolved Date Right inguinal hernia 07/19/2012 02/13/2017 GERD (gastroesophageal reflux disease) 1 07/19/2012 Esophageal reflux 07/21/2005 08/10/2006 documented as of this encounter (statuses as of 03/14/2023) [facility] History of Past illness Narrative* Problem Noted Date Diagnosed Date Resolved Date Right inguinal hernia 07/19/20122016 GERD (gastroesophageal reflux disease) 02/08/2011 07/19/2012 Esophageal reflux 07/21/2005 08/10/2006 documented as of this encounter (statuses as of 08/12/2023) [facility] History of Past illness Narrative* Problem Noted Date Diagnosed Date Resolved Date Right inguinal hernia 07/19/20122016 GERD (gastroesophageal reflux disease) 02/08/2011 07/19/2012 Esophageal reflux 07/21/2005 08/10/2006 documented as of this encounter (statuses as of 08/12/2023) [facility] of Past illness Narrative* Problem Noted Date Diagnosed Date Resolved Date Right inguinal hernia 07/19/20122016 GERD (gastroesophageal reflux disease) 02/08/2011 07/19/2012 Esophageal reflux 07/21/2005 08/10/2006 documented as of this encounter (statuses as of 11/16/2023) [facility] note* Diagnosis Routine physical examination- Primary Routine general medical examination at a health care facility Impaired fasting glucose Other hyperlipidemia Elevated PSA Elevated prostate specific antigen (PSA) documented [facility]* Diagnosis Routine physical examination- Primary Routine general medical examination at a health care facility Elevated PSA Elevated prostate specific antigen (PSA) Other hyperlipidemia Impaired fasting glucose Varicose veins of both lower extremities with pain Varicose veins of lower extremities with other complications documented in this encounter [facility]* Diagnosis Hematuria, unspecified type- Primary documented in this encounter [facility]* Diagnosis Right flank pain- Primary Abdominal pain, unspecified site Asymptomatic microscopic hematuria Elevated PSA Elevated prostate specific antigen (PSA) documented in this encounter [facility]* Diagnosis Hematuria, unspecified type documented in this encounter [facility]* Diagnosis Right flank pain Abdominal pain, unspecified site Asymptomatic microscopic hematuria documented in this encounter [facility]* Diagnosis Adenomatous polyp of colon, unspecified part of colon- Primary Special screening for malignant neoplasms, colon documented in this encounter [facility]* Diagnosis Chronic abdominal pain- Primary Abdominal pain, unspecified site Diarrhea, unspecified type documented in this encounter [facility]* Diagnosis Other hyperlipidemia- Primary Impaired fasting glucose Elevated PSA Elevated prostate specific antigen (PSA) documented in this encounter [facility]* Diagnosis Routine physical examination- Primary Routine general medical examination at a health care facility Irritable bowel syndrome with diarrhea Irritable bowel syndrome Screening for depression Primary hypertension Unspecified essential hypertension Other hyperlipidemia Impaired fasting glucose Dermatophytosis of nail Chronic angle-closure glaucoma of both eyes, unspecified glaucoma stage documented in this encounter [facility]* Diagnosis Dermatophytosis of nail [facility] Diagnosis Dermatophytosis of nail- Primary [facility] Diagnosis Right lower quadrant abdominal pain- Primary Abdominal pain, right lower quadrant Irritable bowel syndrome with diarrhea Irritable bowel syndrome Other hyperlipidemia [facility] Diagnosis Right lower quadrant abdominal pain Abdominal pain, right lower quadrant documented in this encounter [facility] note* Diagnosis Nausea- Primary Nausea alone LUQ abdominal pain Abdominal pain, left upper quadrant Heart burn Heartburn documented in this encounter [facility] note* Diagnosis Heartburn- Primary LUQ abdominal pain Abdominal pain, left upper quadrant Nausea Nausea alone Heart burn Heartburn documented in this encounter [facility] note* Diagnosis Gastroesophageal reflux disease with esophagitis without hemorrhage- Primary documented in this encounter [facility] for referral (narrative)* Diagnostic Procedure Only (Routine) - Pending Review Specialty Diagnoses / Procedures Referred By Contac t Referred To Contact US IMAGING Diagnoses Hematuria, unspecified type Procedures US KIDNEY/BLADDER US RETROPERITONEAL REAL TIME W/IMAGE COMPLETE India Jimenez APRN.CNP [address] [place] [address] Us Imaging Referral ID Status Reason Start Date Expiration Date Visits Requested Visits Authorized [id number] Pending Review Auto-Generat ed Referral 09/27/2023 1 1 [facility] for referral (narrative)* Diagnostic Procedure Only (Routine) - Closed Specialty Diagnoses / Procedures Referred By Bernie wright Referred To Contact US IMAGING Diagnoses Hematuria, unspecified type Procedures US KIDNEY/BLADDER US RETROPERITONEAL REAL TIME W/IMAGE India Meraz APRN.CNP [address] [place] [address] Us Imaging [id number] Referral ID Status Reason Start Date Expiration Date V isits Requested Visits Authorized [id number] Closed Auto-Generate d Referral 08/28/2022 09/27/2023 1 1 [facility] for referral (narrative)* Outpatient Procedure (Routine) - Closed Specialty Diagnoses / Procedures Referred By Contac t Referred To Contact [facility] Diagnoses Special screening for malignant neoplasms, colon Procedures COLONOSCOPY SCREENING COLONOSCOPY FLX DX W/COLLJ SPEC WHEN PFRMD Castorena, Rob, MD [address] [place] [address] [facility] Disease [address] [address] Referral ID Status Reason Start Date Expiration Date V isits Requested Visits Authorized [id number] Closed Auto-Generate d Referral 11/07/2023 11/07/2024 1 1 [facility] for visit Narrative* Outpatient Procedure (Routine) - Closed Specialty Diagnoses / Procedures Referred By Bernie t Referred To Contact [facility] Diagnoses Special screening for malignant neoplasms, colon Procedures COLONOSCOPY SCREENING COLONOSCOPY FLX DX W/COLLJ SPEC WHEN Archie Gill MD [address] [place] [address] [facility] Disease [place] [id number] Referral ID Status Reason Start Date Expiration Date V isits Requested Visits Authorized [id number] Closed Auto-Generate d Referral 11/07/2023 11/07/2024 1 1 [facility] for visit Narrative* MRI/CT (Routine) - Closed Specialty Diagnoses / Procedures Referred By Bernie t Referred To Contact CT IMAGING Diagnoses Right lower quadrant abdominal pain Procedures CT ABD/PEL W IVCON CT ABD & PELVIS W/CONTRAST Archie Castorena MD [address] [place] [address] Phone: tel: fax: CT IMAGING [id number] Referral ID Status Reason Start Date Expiration Date V isits Requested Visits Authorized [id number] Closed Auto-Generate d Referral 12/15/2024 01/14/2026 1 1 [facility] for visit Narrative* Outpatient Procedure (Routine) - Closed Specialty Diagnoses / Procedures Referred By Bernie t Referred To Contact [facility] Diagnoses LUQ abdominal pain Nausea Heart burn Procedures EGD DIAGNOSTIC ESOPHAGOGASTRODUODENOSC OPY TRANSORAL DIAGNOSTIC Queenie Jacobo APRN.CLINICAL APPEALS AUDITOR [address] [place] [address] Phone: tel: fax: [facility] [address] [place] [address] Referral ID Status Reason Start Date Expiration Date V isits Requested Visits Authorized [id number] Closed Auto-Generate d Referral 02/03/2025 02/03/2026 1 1 [facility] Reason for Referral Specialty Diagnoses / Procedures Referred By Contac t Referred To Contact CT IMAGING Diagnoses Right flank pain Asymptomatic microscopic hematuria Procedures CT FLANK WO IVCON CT ABD & PELVIS W/O CONTRAST 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, [place], 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 [address] [place] [address] Ct Imaging Referral ID Status Reason Start Date Expiration Date V isits Requested Visits Authorized [id number] Closed Auto-Generate d Referral 03/14/2023 04/12/2024 1 1 Specialty Diagnoses / Procedures Referred By Contac t Referred To Contact CT IMAGING Diagnoses Right flank pain Asymptomatic microscopic hematuria Procedures CT FLANK WO IVCON CT ABD & PELVIS W/O CONTRAST 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, [place], 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 [address] [place] [address] [place] [id number] Specialty Diagnoses / Procedures Referred By Contac t Referred To Contact Gastroenterology Diagnoses Chronic abdominal pain Diarrhea, unspecified type Procedures CONSULT TO GASTROENTEROLOGY OFFICE/OUTPATIENT [facility] 60 MINUTES India Colón, 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 [address] [place] [address] Referral ID Status Reason Start Date Expiration Date Visits Requested Visits Authorized [id number] Authorized PCP Requested Referral 02/26/2024 02/25/2025 1 1 Specialty Diagnoses / Procedures Referred By Contac t Referred To Contact Podiatry Diagnoses Dermatophytosis of nail Procedures CONSULT TO PODIATRY OFFICE/OUTPATIENT [facility] 60 MINUTES Archie Castorena MD [address] [place] [address] Referral ID Status Reason Start Date Expiration Date Visits Requested Visits Authorized [id number] Authorized PCP Requested Referral 08/07/2025 1 1 Summary Purpose Family History No Family History Records FoundNo Family History Records Found Advance Directives No Advanced Directives Records FoundNo Advanced Directives Records Found Additional Source Comments Source Comments (unrecognize d section and content) In the event this informatio n is protected by the Federal Confidentiality of Alcohol and Drug Abuse Patient Records regulations: The Federal rules restrict any use of the information to criminally investigate or prosecute any alcohol or drug abuse patient.[facility] event this information is protected by the Federal Confidentiality of Alcohol and Drug Abuse Patient Records regulations: The Federal rules restrict any use of the information to criminally investigate or prosecute any alcohol or drug abuse patient.[facility] the event this information is protected by the Federal Confidentiality of Alcohol and Drug Abuse Patient Records regulations: The Federal rules restrict any use of the information to criminally investigate or prosecute any alcohol or drug abuse patient.[facility] the event this information is protected by the Federal Confidentiality of Alcohol and Drug Abuse Patient Records regulations: The Federal rules restrict any use of the information to criminally investigate or prosecute any alcohol or drug abuse patient.[facility] the event this information is protected by the Federal Confidentiality of Alcohol and Drug Abuse Patient Records regulations: The Federal rules restrict any use of the information to criminally investigate or prosecute any alcohol or drug abuse patient.[facility] the event this information is protected by the Federal Confidentiality of Alcohol and Drug Abuse Patient Records regulations: The Federal rules restrict any use of the information to criminally investigate or prosecute any alcohol or drug abuse patient.[facility] the event this information is protected by the Federal Confidentiality of Alcohol and Drug Abuse Patient Records regulations: The Federal rules restrict any use of the information to criminally investigate or prosecute any alcohol or drug abuse patient.[facility] the event this information is protected by the Federal Confidentiality of Alcohol and Drug Abuse Patient Records regulations: The Federal rules restrict any use of the information to criminally investigate or prosecute any alcohol or drug abuse patient.[facility] the event this information is protected by the Federal Confidentiality of Alcohol and Drug Abuse Patient Records regulations: The Federal rules restrict any use of the information to criminally investigate or prosecute any alcohol or drug abuse patient.[facility] the event this information is protected by the Federal Confidentiality of Alcohol and Drug Abuse Patient Records regulations: The Federal rules restrict any use of the information to criminally investigate or prosecute any alcohol or drug abuse patient.[facility] the event this information is protected by the Federal Confidentiality of Alcohol and Drug Abuse Patient Records regulations: The Federal rules restrict any use of the information to criminally investigate or prosecute any alcohol or drug abuse patient.[facility] the event this information is protected by the Federal Confidentiality of Alcohol and Drug Abuse Patient Records regulations: The Federal rules restrict any use of the information to criminally investigate or prosecute any alcohol or drug abuse patient.[facility] the event this information is protected by the Federal Confidentiality of Alcohol and Drug Abuse Patient Records regulations: The Federal rules restrict any use of the information to criminally investigate or prosecute any alcohol or drug abuse patient.[facility] the event this information is protected by the Federal Confidentiality of Alcohol and Drug Abuse Patient Records regulations: The Federal rules restrict any use of the information to criminally investigate or prosecute any alcohol or drug abuse patient.[facility] the event this information is protected by the Federal Confidentiality of Alcohol and Drug Abuse Patient Records regulations: The Federal rules restrict any use of the information to criminally investigate or prosecute any alcohol or drug abuse patient.[facility] the event this information is protected by the Federal Confidentiality of Alcohol and Drug Abuse Patient Records regulations: The Federal rules restrict any use of the information to criminally investigate or prosecute any alcohol or drug abuse patient.[facility] the event this information is protected by the Federal Confidentiality of Alcohol and Drug Abuse Patient Records regulations: The Federal rules restrict any use of the information to criminally investigate or prosecute any alcohol or drug abuse patient.[facility] the event this information is protected by the Federal Confidentiality of Alcohol and Drug Abuse Patient Records regulations: The Federal rules restrict any use of the information to criminally investigate or prosecute any alcohol or drug abuse patient.[facility] the event this information is protected by the Federal Confidentiality of Alcohol and Drug Abuse Patient Records regulations: The Federal rules restrict any use of the information to criminally investigate or prosecute any alcohol or drug abuse patient.[facility] the event this information is protected by the Federal Confidentiality of Alcohol and Drug Abuse Patient Records regulations: The Federal rules restrict any use of the information to criminally investigate or prosecute any alcohol or drug abuse patient.[facility] the event this information is protected by the Federal Confidentiality of Alcohol and Drug Abuse Patient Records regulations: The Federal rules restrict any use of the information to criminally investigate or prosecute any alcohol or drug abuse patient.[facility] the event this information is protected by the Federal Confidentiality of Alcohol and Drug Abuse Patient Records regulations: The Federal rules restrict any use of the information to criminally investigate or prosecute any alcohol or drug abuse patient.[facility] the event this information is protected by the Federal Confidentiality of Alcohol and Drug Abuse Patient Records regulations: The Federal rules restrict any use of the information to criminally investigate or prosecute any alcohol or drug abuse patient.[facility] Reason for Visit (unrecogniz ed section and content) Reason Comments Lab Orders Reason Comments Yearly Exam Reason Comments Results Reason Comments Results Reason Comments stomach pain / possible kidney stone Rig ht flank pain Reason Comments Radiology US Specialty Diagnoses / Procedures Referred By Contac t Referred To Contact US IMAGING Diagnoses Hematuria, unspecified type Procedures US KIDNEY/BLADDER US RETROPERITONEAL REAL TIME W/IMAGE COMPLETE Older, [place], 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 [address] [place] [address] [place] [address] Referral ID Status Reason Start Date Expiration Date V isits Requested Visits Authorized [id number] Closed Auto-Generate d Referral 08/28/2022 09/27/2023 1 [address] Specialty Diagnoses / Procedures Referred By Contac t Referred To Contact CT IMAGING Diagnoses Right flank pain Asymptomatic microscopic hematuria Procedures CT FLANK WO IVCON CT ABD & PELVIS W/O CONTRAST Older, [place], 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 [address] [place] [address] [place] [address] Referral ID Status Reason Start Date Expiration Date V isits Requested Visits Authorized [id number] Closed Auto-Generate d Referral 03/14/2023 04/12/2024 1 1 Reason Comments Abdominal Pain Intermittently x 1 y ear Reason Comments Orders Reason Comments Yearly Exam 9 month follow-up Reason Comments nail deformity New Specialty Diagnoses / Procedures Referred By Contac t Referred To Contact Podiatry Diagnoses Dermatophytosis of nail Procedures CONSULT TO PODIATRY OFFICE/OUTPATIENT NEW HIGH MDM 60 MINUTES Archie Castorena MD [address] [place] [address] Referral ID Status Reason Start Date Expiration Date V isits Requested Visits Authorized [id number] Closed PCP Requested Referral 08/07/2024 08/07/2025 1 1 Reason Comments Pain Reason Comments Radiology CT Specialty Diagnoses / Procedures Referred By Contac t Referred To Contact CT IMAGING Diagnoses Right lower quadrant abdominal pain Procedures CT ABD/PEL W IVCON CT ABD & PELVIS W/CONTRAST Archie Castorena MD [address] [place] [address] Phone: tel: fax: [place] [address] Referral ID Status Reason Start Date Expiration Date V isits Requested Visits Authorized [id number] Closed Auto-Generate d Referral 12/15/2024 01/14/2026 1 1 Reason Onset Date Comments Results 01/05/2025 ct scan Reason Comments Consult LUQ pain, EGD consul t Specialty Diagnoses / Procedures Referred By Contac t Referred To Contact General Surgery Diagnoses LUQ abdominal pain Procedures CONSULT TO GENERAL SURGERY OFFICE/OUTPATIENT [facility] [place] [address] [place] [address] Phone: tel: fax: Referral ID Status Reason Start Date Expiration Date V isits Requested Visits Authorized [id number] Closed PCP Requested Referral 01/30/2025 01/30/2026 1 1 Reason Comments Follow Up Follow up for EGD. D enies complaints related to procedure Reason Comments 02-12-2025 EGD [facility] Care Teams (unrecognized sec tion and content) Novelty Worker Relationship Specialty Start Date End Date Archie Castorena MD [address] [place] [address] PCP - General 07/31/02 Novelty Worker Relationship Specialty Start Date End Date Archie Castorena MD [address] [place] [address] PCP - General 07/31/02 Novelty Worker Relationship Specialty Start Date End Date Archie Castorena MD [address] [place] [address] PCP - General 07/31/02 Novelty Worker Relationship Specialty Start Date End Date Archie Castorena MD [address] [place] [address] PCP - General 07/31/02 Novelty Worker Relationship Specialty Start Date End Date Archie Castorena MD [address] [place] [address] PCP - General 07/31/02 Novelty Worker Relationship Specialty Start Date End Date Archie Castorena MD [address] [place] [address] PCP - General 07/31/02 Novelty Worker Relationship Specialty Start Date End Date Archie Castorena MD [address] [place] [address] PCP - General 07/31/02 Novelty Worker Relationship Specialty Start Date End Date Archie Castorena MD [address] [place] [address] PCP - General 07/31/02 Novelty Worker Relationship Specialty Start Date End Date Archie Castorena MD [address] [place] [address] PCP - General 07/31/02 Novelty Worker Relationship Specialty Start Date End Date Archie Castorena MD [address] [place] [address] PCP - General 07/31/02 Novelty Worker Relationship Specialty Start Date End Date Archie Castorena MD [address] [place] [address] PCP - General 07/31/02 India Colón, 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 [address] [place] [address] Fiberglass Boat Builder Internal Medicine 09/15/24 Novelty Worker Relationship Specialty Start Date End Date Archie Castorena MD [address] [place] [address] PCP - General 07/31/02 India Colón, 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 [address] [place] [address] Fiberglass Boat Builder Internal Medicine 09/15/24 Novelty Worker Relationship Specialty Start Date End Date Archie Castorena MD [address] [place] [address] PCP - General 07/31/02 India Colón, 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 [address] [place] [address] Fiberglass Boat Builder Internal Medicine 09/15/24 Novelty Worker Relationship Specialty Start Date End Date Archie Castorena MD [address] [place] [address] PCP - General 07/31/02 India Colón, 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 [address] [place] [address] Fiberglass Boat Builder Internal Medicine 09/15/24 Novelty Worker Relationship Specialty Start Date End Date Archie Castorena MD [address] [place] [address] PCP - General 07/31/02 India Colón, 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 [address] [place] [address] Fiberglass Boat Builder Internal Medicine 09/15/24 Novelty Worker Relationship Specialty Start Date End Date Archie Castorena MD [address] [place] [address] PCP - General 07/31/02 India Colón, 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 [address] [place] [address] Fiberglass Boat Builder Internal Medicine 09/15/24 Novelty Worker Relationship Specialty Start Date End Date Archie Castorena MD [address] [place] [address] PCP - General 07/31/02 India Colón, 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 [address] [place] [address] Fiberglass Boat Builder Internal Medicine 09/15/24 Novelty Worker Relationship Specialty Start Date End Date Archie Castorena MD [address] [place] [address] PCP - General 07/31/02 India Colón, 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 [address] [place] [address] Fiberglass Boat Builder Internal Medicine 09/15/24 Novelty Worker Relationship Specialty Start Date End Date Archie Castorena MD [address] [place] [address] PCP - General 07/31/02 India Colón, 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 [address] [place] [address] Fiberglass Boat Builder Internal Medicine 09/15/24 Novelty Worker Relationship Specialty Start Date End Date Archie Castorena MD [address] [place], [place] [address] PCP - General 07/31/02 India Colón, 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 [address] [place], [place] [address] Fiberglass Boat Builder Internal Medicine 09/15/24 Novelty Worker Relationship Specialty Start Date End Date Archie Castorena MD [address] [place], [place] [address]28[address] PCP - General 07/31/02 India Colón, 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 [address] [place], [place] [address] Fiberglass Boat Builder Internal Medicine 09/15/24 Inactive Administered Medications - up to 3 most recent administrations Administered Medications (un recognized section and content) Medication Order MAR Action Action Date Dose Rate Site diphenhydrAMINE 12.5-50 mg injection (BENADRYL) 12.5-50 mg, INTRAVENOUS, DIRECTED, Starting on [place] 11/15/23 at 0900, Until [place] 11/15/23 at 1259, DOSING DIRECTED BY PHYSICIAN FOR PROCEDURAL SEDATION ONLY, Intraprocedure Given 11/15/2023 8:52 AM EST 50 mg fentaNYL 50 mcg/mL 25-100 mcg injection (SUBLIMAZE) 25-100 mcg, INTRAVENOUS, DIRECTED, Starting on [place] 11/15/23 at 0900, Until [place] 11/15/23 at 1259, DOSING DIRECTED BY PHYSICIAN FOR PROCEDURAL SEDATION ONLY, Intraprocedure Given 11/15/2023 9:01 AM EST 50 mcg Given 11/15/2023 8:50 AM EST 50 mcg lactated ringers iv infusion 30 mL/hr, INTRAVENOUS, CONTINUOUS, Starting on [place] 11/15/23 at 0830, Until [place] 11/15/23 at 0918, Preprocedure New Bag/Syringe/Bottle 11/15/2023 8:15 AM EST 30 mL/hr 30 mL/hr midazolam (PF) 1-5 mg injection (VERSED) 1-5 mg, INTRAVENOUS, DIRECTED, Starting on [place] 11/15/23 at 0900, Until [place] 11/15/23 at 1259, DOSING DIRECTED BY PHYSICIAN FOR PROCEDURAL SEDATION ONLY, Intraprocedure Given 11/15/2023 8:54 AM EST 2 mg Given 11/15/2023 8:50 AM EST 3 mg (unrecognized sect ion and content) No Status Records FoundNo Status Records Found INFORMATION SOURCE (unrecogn ized section and content) DATE CREATED AUTHOR 05/14/[address] [facility] DATE CREATED AUTHOR AUTHOR'S ORGANIZ ATION 08/05/2025 [facility] FOR RECORDS PERTAINING TO PATIENTS WHO ARE OR HAVE BEEN ENROLLED IN A CHEMICAL DEPENDENCY/SUBSTANCEABUSE PROGRAM, SOME INFORMATION MAY BE OMITTED. This clinical summary was aggregated from multiple sources. Caution should be exercised in using it in the provision of clinical care. This summary normalizes information from multiple sources, and as a consequence, information in this document may materially change the coding, format and clinical context of patient data. In addition, data may be omitted in some cases. CLINICAL DECISIONS SHOULD BE BASED ON THE PRIMARY CLINICAL RECORDS. [employer] [facility]. provides no warranty or guarantee of the accuracy or completeness of information in this document.
[2025-08-21 14:09] LABS: PSA, Free 1.69 ng/mL; PSA, Free % 25.3 % (.); PSA, Total Ultrasensitive 6.690 ng/mL (0.000-4.000)
== END | disposition home or self-care (01) ==
LOC: LAB 09:32
PROVIDERS: PCP Internal Medicine; Referring Provider Urology; Visit Provider Urology
DX: R97.20 Elevated prostate specific antigen [PSA] (principal)
CPT/HCPCS: 36415; 84153; 84154